=== PATIENT | female | born 1935 | race Caucasian/White ===

== ENCOUNTER 2016-08-16 11:28 | Outpatient (CLI) | payer MEDICARE, OTHER | END 2016-08-16 11:29 | disposition short-term general hospital (02) | DX: M25.552 Pain in left hip (principal); W01.0XXA Fall on same level from slipping, tripping and stumbling without subsequent striking against object, initial encounter; Y92.000 Kitchen of unspecified non-institutional (private) residence as the place of occurrence of the external cause | CPT/HCPCS: A0425; A0427; A0888 ==

== ENCOUNTER 2017-03-13 12:25 | Outpatient (CLI) | payer MEDICARE, OTHER | END 2017-03-13 12:26 | disposition EMS.NT | LOC: EMS 12:25 | PROVIDERS: ATTEND Surgery | DX: R55 Syncope and collapse (principal) ==

== ENCOUNTER 2017-11-29 06:21 | Outpatient (CLI) | payer MEDICARE, OTHER | END 2017-11-29 06:22 | disposition short-term general hospital (02) | LOC: EMS 06:21 | PROVIDERS: ATTEND Surgery | DX: R41.0 Disorientation, unspecified (principal); R41.3 Other amnesia | CPT/HCPCS: A0425; A0429 ==

== ENCOUNTER 2019-01-29 10:37 | Outpatient (CLI) | payer MEDICARE, OTHER | END 2019-01-29 10:38 | disposition short-term general hospital (02) | LOC: EMS 10:37 | PROVIDERS: ATTEND Surgery | DX: R53.1 Weakness (principal); R47.01 Aphasia | CPT/HCPCS: A0425; A0429; A0888 ==

== ENCOUNTER 2019-03-04 18:27 | Outpatient (CLI) | payer MEDICARE, OTHER | END 2019-03-05 18:28 | disposition critical access hospital (66) | LOC: EMS 18:27 | PROVIDERS: ATTEND Surgery | DX: R55 Syncope and collapse (principal) | CPT/HCPCS: A0425; A0429 ==

== ENCOUNTER 2019-03-04 18:45 | Inpatient (IN) | payer MEDICARE, OTHER ==
--- NOTE | 2019-03-04 18:52 | ED Physician Documentation ---
History of Present Illness - Stated complaint Stated Complaint: SYNCOPE - History obtained from History obtained from: Patient, EMS - History of Present Illness Timing: Other (This is an 83-year-old with dementia who presents from a memory care facility. Reportedly she was eating her ice cream sandwich after dinner and then either passed out or . Per paramedics the care staff felt like she did not have a pulse or respirations. That said after just chest compressions she is now back to normal. 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: Hysterectomy HEENT: Cataracts - Present Medications Home Medications: Ambulatory Orders Medication Instructions Recorded Confirmed Aspirin 81 mg PO DAILY 03/04/19 03/04/19 Clopidogrel [Plavix] 75 mg PO DAILY 03/04/19 03/04/19 Latanoprost 1 drops QPM 03/04/19 03/04/19 Lisinopril 5 mg PO BID 03/04/19 03/04/19 QUEtiapine [SEROquel] 25 mg PO QPM 03/04/19 03/04/19 - Allergies Allergies/Adverse Reactions: Allergies Allergy/AdvReac Type Severity Reaction Status Date / Time iodine Allergy Anaphylaxis Verified 03/04/19 19:03 PD ED PE NORMAL - Vitals Vital signs reviewed: Yes - General General: Other (She is alert and oriented to person and place but not time) - HEENT HEENT: PERRL, EOMI - Neck Neck: Supple, no meningeal sign, No bony TTP - Cardiac Cardiac: RRR, No murmur - Respiratory Respiratory: No respiratory distress, Clear bilaterally - Abdomen Abdomen: Non tender - Extremities Extremities: No edema, No calf tenderness / cord - Neuro Neuro: No motor deficit, No sensory deficit Eye Opening: Spontaneous Motor: Obeys Commands Verbal: Confused GCS Score: 14 Results - Vitals Vitals: Vital Signs - 24 hr 03/04/19 18:50 Temperature 36.6 C Heart Rate 75 Respiratory 16 Rate Blood Pressure 160/111 H O2 Saturation 98 Oxygen O2 Source Room air - EKG (time done) 1928 Rate: Rate (enter#) (71) Rhythm: NSR [place]: Normal Intervals: Normal RI QRS: Normal Ischemia: Normal ST segments - Labs Labs: Laboratory Tests 03/04/19 03/04/19 03/04/19 19:35 19:35 19:35 WBC 8.6 RBC 4.16 L Hgb 12.9 Hct 37.4 MCV 89.9 MCH 31.0 MCHC 34.5 RDW 12.3 Plt Count 231 MPV 9.0 Neut # (Auto) 6.3 Lymph # (Auto) 1.2 L Edgar # (Auto) 0.9 Eos # (Auto) 0.1 Baso # (Auto) 0.0 Absolute Nucleated RBC 0.00 Nucleated RBC % 0.0 Sodium 125 L Potassium 3.5 Chloride 88 L Carbon Dioxide 25 Anion Gap 12.0 BUN 62 H Creatinine 2.8 H Estimated GFR (MDRD) 16 L Glucose 113 H Calcium 8.6 Total Bilirubin 0.7 AST 20 ALT 15 Alkaline Phosphatase 52 Troponin I High Sens 8.4 Total Protein 6.4 L Albumin 3.6 Globulin 2.8 Albumin/Globulin Ratio 1.3 Lipase 45 PD MEDICAL DECISION MAKING - ED course ED course: 83-year-old woman presents by ambulance for syncope, potential cardiac but resolved quickly after CPR alone suggesting that she never actually lost pulses. Examination is relatively unremarkable and her EKG is as well. I spoke with the daughter by phone, also looked up records from [facility]. Her baseline creatinine is 1.4. She had a similar episode about a month ago, had a left basilar ganglia stroke. She also had a creatinine in the mid twos. Also had UTI. This resolved with IV fluids. Looks like she got very prerenal again and probably passed out due to same. Spoke with Dr. Nuñez for admission at 8:21 PM. DAUGHTER WANTS HER NOT TO BE ON BACTRIM AGAIN DUE TO SIDE EFFECTS Radiologist was concerned about a potential pneumothorax on x-ray, this was followed by CT without pneumothorax. Departure - Departure Disposition: 66 [facility] DC/Xfer Clinical Impression: CAYDEN (acute kidney injury), Pneumothorax on left Chest wall injury Qualifiers: Encounter type: initial encounter Qualified Code(s): S29.9XXA - Unspecified injury of thorax, initial encounter Syncope Qualifiers: Syncope type: unspecified Qualified Code(s): R55 - Syncope and collapse Condition: Good Record reviewed to determine appropriate education?: Yes Discharge Date/Time: 03/04/19 21:15
[2019-03-04 19:40] LABS: BASOPHILS % (AUTO) 0.5 %; EOSINOPHILS # (AUTO) 0.1 10^3/uL (0.0-0.7); EOSINOPHILS % (AUTO) 0.9 %; HGB - HEMOGLOBIN 12.9 g/dL (12.0-16.0); LYMPHOCYTES # (AUTO) 1.2 10^3/uL (1.5-3.5); LYMPHOCYTES % (AUTO) 13.4 %; MEAN CORPUSCULAR HGB CONC 34.5 g/dL (32.0-36.0); MEAN CORPUSCULAR VOLUME 89.9 fL (81.0-99.0); MONOCYTES # (AUTO) 0.9 10^3/uL (0.0-1.0); NEUTROPHILS # (AUTO) 6.3 10^3/uL (1.5-6.6); NEUTROPHILS % (AUTO) 73.6 %; PLT - PLATELET COUNT 231 10^3/uL (130-450); RED BLOOD COUNT 4.16 10^6/uL (4.20-5.40); RED CELL DISTRIBUTION WIDTH 12.3 % (12.0-15.0); WHITE BLOOD COUNT 8.6 x10^3/uL (4.8-10.8)
[2019-03-04 19:54] LABS: ALBUMIN 3.6 g/dL (3.2-5.5); ALBUMIN/GLOBULIN RATIO 1.3 (1.0-2.2); BILIRUBIN,TOTAL 0.7 mg/dL (0.2-1.0); CALCIUM 8.6 mg/dL (8.5-10.3); CREATININE 2.8 mg/dL (0.4-1.0); TOTAL PROTEIN 6.4 g/dL (6.7-8.2)
[2019-03-04] MEDS ORDERED: SODIUM CHLORIDE 0.9% 1,000 ML IV ONE ×2 (20:08)
--- NOTE | 2019-03-04 20:09 | XRAY Report ---
Reason: post CPr Procedure Date: 03/04/2019 Accession Number: [id number] / [id number] Procedure: XR - Chest 2 View X-Ray CPT Code: 14392 FULL RESULT: EXAM: CHEST RADIOGRAPHY EXAM DATE: 03/04/2019 07:39 PM. CLINICAL HISTORY: Post CPr. COMPARISON: None. TECHNIQUE: 2 views. FINDINGS: Lungs/Pleura: Small bilateral pleural effusions. No focal opacity. Left inferolateral lucency may reflect pneumothorax or artifactual/skin fold. A repeat radiograph to be performed in 2 hours for interval assessment. Mediastinum: Heart and mediastinal contours are unremarkable. Other: None. IMPRESSION: Small bilateral pleural effusions. Left inferolateral lucency may reflect pneumothorax or artifactual/skin fold. A repeat radiograph to be performed in 2 hours for interval assessment. WILTON The call report notification system was initiated by Dr. Jenny Carlson at 08:07 PM on 03/04/2019. ADDENDUM: 03/04/19 20:11 The above call report findings were discussed with Hernan Whitaker by Dr. Jenny Carlson at 08:11 PM on 03/04/2019.
[2019-03-04] MEDS ORDERED: ACETAMINOPHEN 325 MG TABLET PO PRN (20:18)
[2019-03-04] MEDS ORDERED: ONDANSETRON 4 MG/2 ML VIAL IVP PRN (20:18)
[2019-03-04] MEDS ORDERED: SODIUM CHLORIDE FLUSH 0.9% 10 ML SYRINGE IVP PRN (20:18)
--- NOTE | 2019-03-04 21:16 | HISTORY & PHYSICAL EXAMINATION ---
Chief Complaint - Chief Complaint Chief Complaint: Syncope History of Present Illness - Admitted From Admitted From:: [facility] - History Obtained From Records Reviewed: Yes History obtained from: Patient, ER Physician, Outside records Exam Limitations: Patient has dementia - History of Present Illness HPI Comment/Other: This is a 83 year old female with a past medical history significant for hypertension, CKD, dementia, and CVA who presents from a Memory Care Facility after she had a syncopal episode. She was reportedly sitting outside eating an ice cream sandwich when she passed out. There was concern that she lost a pulse and so CPR was initiated. The patient then regained consciousness and was back to her usual self. She denies having chest pain at this time. She denies having chest pain, palpitations, dizziness, lightheadedness prior to her passing out. She does recall the event and cannot recall any inciting factors. She denies prior history of syncope. She has been in her usual state of health. Reports drinking plenty of water these past few days. She was hospitalized last month at [facility] where she was treated for a UTI and also a new left basal ganglia CVA. She has no residual deficits. In the ER, she was found to be normotensive with a normal heart rate. Labs were significant for a sodium of 125, BUN of 62, and creatinine of 2.8. An x-ray of the chest was concerning for a possible small left inferolateral pneumothorax. A CT of the chest has been ordered and is pending. Her EKG revealed sinus rhythm with an intraventricular conduction delay. No ischemic changes. Troponin is negative. Medicine was consulted for admission given these findings. I did speak with the patient regarding code status and she would like to be a full code. 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 Living arrangement: Assisted living Living Situation: Alone Social History Notes: She currently resides at a Memory Care Facility. She has three daughters who live in [facility]. She does not smoke. She does drink a glass of wine daily. - Substance History Use: Uses substance without health or social issues: Alcohol - POLST Patient has POLST: No Meds/Allgy - Home Medications Home Medications: Ambulatory Orders Medication Instructions Recorded Confirmed Aspirin 81 mg PO DAILY 03/04/19 03/04/19 Clopidogrel [Plavix] 75 mg PO DAILY 03/04/19 03/04/19 Latanoprost 1 drops QPM 03/04/19 03/04/19 Lisinopril 5 mg PO BID 03/04/19 03/04/19 QUEtiapine [SEROquel] 25 mg PO QPM 03/04/19 03/04/19 - Allergies Allergies/Adverse Reactions: Allergies Allergy/AdvReac Type Severity Reaction Status Date / Time iodine Allergy Anaphylaxis Verified 03/04/19 19:03 Review of Systems - Constitutional Constitutional: denies: Fatigue, Fever, Chills, Malaise, Weakness, Poor appetite - Cardiovascular Cariovascular: reports: Syncope. denies: Irregular heart rate, Palpitations, Chest pain, Edema, Lightheadedness, Exertional dyspnea, Decr. exercise tolerance - Respiratory Respiratory: denies: Cough, SOB at rest, SOB with exertion - Gastrointestinal Gastrointestinal: denies: Abdominal pain, Constipation, Diarrhea, Nausea, Vomiting - Genitourinary Genitourinary: denies: Dysuria, Frequency, Urgency - Musculoskeletal Musculoskeletal: denies: Muscle aches, Muscle weakness - Integumentary Integumentary: denies: Rash - Neurological Neurological: denies: General weakness, Focal weakness, Dizziness, Numbness - All Other Systems All Other Systems: reports: Reviewed and negative Prior Level of Functionality: She has dementia and resides at a Memory Care Facility. Ambulates with a walker at baseline for stability. Exam - Vital Signs Reviewed Vital Signs: Yes Vital Signs: Vital Signs x48h Temp Pulse Resp BP Pulse Ox 03/04/19 20:55 82 16 123/82 H 98 03/04/19 20:20 74 17 113/63 96 03/04/19 18:50 36.6 C 75 16 160/111 H 98 - Physical Exam General Appearance: positive: No acute distress, Alert. negative: Lethargic Eyes Bilateral: positive: Normal inspection, Conjunctivae nml, No scleral icterus ENT: positive: ENT inspection nml, Dry mucous membranes. negative: No signs of dehydration Neck: positive: Nml inspection Respiratory: positive: Chest non-tender, No respiratory distress. negative: Wheezes, Rales, Rhonchi Cardiovascular: positive: Regular rate & rhythm. negative: Tachycardia, Bradycardia, Systolic murmur, Diastolic murmur Abdomen: positive: Non-tender, No distention. negative: Tenderness, Guarding, Rebound Skin: positive: No rash, Warm, Dry Extremities: positive: Non-tender, Full ROM, No pedal edema Neurologic/Psychiatric: positive: Motor nml, Sensation nml, Disoriented to time. negative: Disoriented to person, Disoriented to place, Weakness, Sensory loss, Facial droop, Slurred/abnml speech Conclusion/Plan - Problem List (1) Syncope Conclusion/Plan: Etiology is unclear at this time. No obvious cause based off of her history. Questionable history of her lose a pulse and hence CPR was initiated but she returned to normal quickly. I wonder if she may have possibly been bradycardic and that is what cause her to have a syncopal episode as well as causing the staff to believe she did not have a pulse. EKG shows sinus rhythm and is without ischemic changes although QTc is prolonged at 472. Initial troponin is negative. Will check orthostatics and monitor her on telemetry. Trend troponin. Will attempt to obtain records from [facility] as she had an echocardiogram performed last month. If we can obtain these records then we will not obtain another echocardiogram as it is unlikely to be changed in a one month period. Qualifiers: Syncope type: unspecified Qualified Code(s): R55 - Syncope and collapse (2) CAYDEN (acute kidney injury) Conclusion/Plan: Suspect this is likely pre-renal injury as she appears dehydrated. Creatinine elevated at 2.8 and her baseline is approximately 1.5. Continue IV hydration. Hold Lisinopril. Monitor renal function and urine output. (3) Hyponatremia Conclusion/Plan: Suspect this is likely hypovolemic hyponatremia as she appears dehydrated on exam. Sodium is 125 on admission. Received one litre of saline in the ER. Will start NS at 100 mL/hr. Recheck BMP at midnight. Goal sodium is 133 by tomorrow evening. Check urine sodium and osm. (4) Pneumothorax on left Conclusion/Plan: Evident on chest x-ray but may be artifact. She is not dyspneic or hypoxic. Will follow up CT chest. If pneumothroax is confirmed, will repeat x-ray in the AM. (5) Dementia Conclusion/Plan: Prior imaging at [facility] was suggestive of vascular dementia. She was started on Seroquel last month due to . Will continue her home Seroquel. (6) Hypertension Conclusion/Plan: She is currently normotensive. Will hold her home Lisinopril due to acute kidney injury. (7) History of CVA (cerebrovascular accident) without residual deficits Conclusion/Plan: History of left basal ganglia infarct diagnosed last month. No residual deficits. Will continue Aspirin and Plavix. - Lab Results Lab results reviewed: Yes Fish Bones: 03/04/19 19:35 03/04/19 19:35 - Diagnostic Imaging Results Diagnostic Imaging Results: positive: Final report reviewed - EKG Results EKG Interpreted Independently: Yes EKG Comparison: No prior EKG EKG Findings: Sinus rhythm with a nonspecific intraventricular conduction delay. No ischemic changes. QTc is prolonged at 472. Core Measures - Anticipated LOS I expect patient to be DC'd or transferred within 96 hours.: Yes - Issues Hospital Issues and Management Plan: Syncope, Acute Kidney Injury, Hyponatremia, Pneumothorax. Will require IV hydration and further workup. - DVT/VTE - Prophylaxis VTE/DVT Device ordered at admit?: Yes VTE/DVT Prophylaxis med ordered at admit?: Yes
--- NOTE | 2019-03-04 21:22 | CT Report ---
Reason: poss ptx p CPR Procedure Date: 03/04/2019 Accession Number: [id number] / [id number] Procedure: CT - CHEST WO CPT Code: FULL RESULT: EXAM: CT CHEST EXAM DATE: 03/04/2019 08:43 PM. CLINICAL HISTORY: Post CPR, possible pneumothorax. COMPARISONS: CHEST 2 VIEW 03/04/2019 7:03 PM. TECHNIQUE: Routine helical CT imaging was performed through the chest. IV contrast: None. Reconstructions: Coronal and sagittal. In accordance with CT protocol optimization, one or more of the following dose reduction techniques were utilized for this exam: automated exposure control, adjustment of mA and/or KV based on patient size, or use of iterative reconstructive technique. FINDINGS: Lungs/Pleura: Small bilateral pleural effusions. No acute airspace disease. No suspicious lung nodules. No evidence of pneumothorax. Mediastinum: Normal heart size. There is a small hiatal hernia. No lymphadenopathy. Bones: Unremarkable. Visualized Abdomen: Bilateral renal cysts. The included upper abdomen is otherwise unremarkable. Other: None. IMPRESSION: 1. Small bilateral pleural effusions. 2. No evidence of pneumothorax or acute airspace disease. RADIA
[2019-03-04 21:34] LABS: BILIRUBIN,URINE NEGATIVE (NEGATIVE); GLUCOSE, URINE (UA) NEGATIVE (NEGATIVE); KETONES,URINE (UA) NEGATIVE (NEGATIVE); LEUKOCYTE ESTERASE, URINE NEGATIVE (NEGATIVE); NITRITE,URINE NEGATIVE (NEGATIVE); OCCULT BLOOD,URINE NEGATIVE (NEGATIVE); PROTEIN,URINE NEGATIVE (NEGATIVE); UROBILINOGEN,URINE 0.2 (NORMAL) E.U./dL (NORMAL)
[2019-03-04 21:35] LABS: CLARITY,URINE CLEAR (CLEAR)
[2019-03-04] MEDS: HEPARIN 5,000 UNIT/ML VIAL SUBQ SCH (21:44)
[2019-03-04] MEDS: SODIUM CHLORIDE 0.9% 1,000 ML IV SCH (22:11)
[2019-03-04] MEDS: SODIUM CHLORIDE FLUSH 0.9% 10 ML SYRINGE IVP SCH (23:49)
[2019-03-05 00:30] LABS: CALCIUM 8.1 mg/dL (8.5-10.3); CREATININE 2.4 mg/dL (0.4-1.0)
[2019-03-05 05:48] LABS: BASOPHILS % (AUTO) 0.4 %; EOSINOPHILS # (AUTO) 0.1 10^3/uL (0.0-0.7); EOSINOPHILS % (AUTO) 1.1 %; HGB - HEMOGLOBIN 11.5 g/dL (12.0-16.0); LYMPHOCYTES # (AUTO) 1.2 10^3/uL (1.5-3.5); LYMPHOCYTES % (AUTO) 14.7 %; MEAN CORPUSCULAR HGB CONC 33.9 g/dL (32.0-36.0); MEAN CORPUSCULAR VOLUME 91.4 fL (81.0-99.0); MEAN PLATELET VOLUME 9.8 fL (7.9-10.8); MONOCYTES # (AUTO) 0.7 10^3/uL (0.0-1.0); MONOCYTES % (AUTO) 8.5 %; NEUTROPHILS % (AUTO) 73.6 %; PLT - PLATELET COUNT 239 10^3/uL (130-450); RED BLOOD COUNT 3.71 10^6/uL (4.20-5.40); WHITE BLOOD COUNT 8.1 x10^3/uL (4.8-10.8)
[2019-03-05 06:00] LABS: CALCIUM 8.4 mg/dL (8.5-10.3); CREATININE 2.2 mg/dL (0.4-1.0); PHOSPHORUS 2.8 mg/dL (2.5-4.6)
[2019-03-05] MEDS: SODIUM CHLORIDE 0.9% 1,000 ML IV SCH ×2 (06:27→10:40)
[2019-03-05] MEDS ORDERED: ASPIRIN EC 81 MG TABLET PO SCH (09:00)
[2019-03-05] MEDS ORDERED: CLOPIDOGREL 75 MG TABLET PO SCH (09:00)
[2019-03-05] MEDS ORDERED: POLYETHYLENE GLYCOL 3350 17 GM PACKET PO SCH (09:00)
[2019-03-05] MEDS: SODIUM CHLORIDE FLUSH 0.9% 10 ML SYRINGE IVP SCH (09:06)
[2019-03-05] MEDS: HEPARIN 5,000 UNIT/ML VIAL SUBQ SCH (09:07)
[2019-03-05] MEDS ORDERED: LISINOPRIL 5 MG TABLET PO SCH (12:00)
[2019-03-05 15:23] LABS: CALCIUM 8.4 mg/dL (8.5-10.3); CREATININE 1.8 mg/dL (0.4-1.0)
[2019-03-05 15:46] VITALS: BP 125/65
--- NOTE | 2019-03-05 16:25 | Discharge Plan ---
"Discharge Plan for SNF / [facility] - Discharge Plan And Transition Orders Problem Reviewed?: Yes Disposition: 03 SNF DC/Xfer Condition: Poor Allergies and Adverse Reactions: Allergies Allergy/AdvReac Type Severity Reaction Status Date / Time iodine Allergy Anaphylaxis Verified 03/04/19 19:03 sulfamethoxazole Allergy Unknown Verified 03/04/19 22:09 [From Bactrim] trimethoprim [From Bactrim] Allergy Unknown Verified 03/04/19 22:09 Health Concerns: dehydration, orthostatic hypotension, hyponatremia, syncope Plan of Treatment: pt present severe dehydration at the admission, pt has hx of dementia and stroke, it is high risk for dehydration, please keep pt enough hydration. pt also present orthostatic hypotension, please let pt stand slowly and walk slowly, and prevention of pt's fall. pt also had hyponatremia at the admission. pt's medication HCTZ is hold now, which will help pt prevention of hyponatremia. It is likely pt's combination of dehydration, orthostatic hypotension, hyponatremia contribute to pt's syncope. Care Goals: stabilization and improvement of pt's medical condition Assessment: assessment as the above. - SNF / [facility] Transition Orders Admit to (Facility): Home Place Under the care of (Name): Anthony Craig Discharge Diagnosis: CAYDEN, hyponatremia, syncope, orthostatic hypotension, dementia, HTN, hx of CVA Medicare Certification Statement: I do not certify that Post Hospital [facility] care is medically necessary on a continuing basis for any of the conditions for which she/he is receiving care during hospitalization. Notify PCP of admission and forward orders to primary provider for signature. Weight on admission and: Daily Call PCP immediately if weight increases by: 2 kg Other Notification Orders: Call PCP immediately if patient develops dyspnea, chest pain/tightness or edema. House Bowel Program: Yes Additional Bowel Program Orders: If no BM after 2 days, nurse may give M.O.M. 30ml PO PRN and/or ducolax Supp 1 [place] and/or STEVEN 250mg P.O., and/or senna 1-2 tabs PO. On day 3 nurse may give repeat above order until residents constipation is resolved. Annual Influenza Vaccine (between Jan 31 and August 30): Yes Two-step PPD per [employer] [id number] or approved exception documents: Yes Treatments & Other Orders: pt may followup PCP in one week, have BMP in one week to monitor creatinine and sodium level. Medication Orders: PLEASE REFER TO THE DISCHARGE MEDICATION LIST. Insulin Orders?: No - Diet Type: Geriatric Texture: Regular Liquids: Thin May have monthly special meal: Yes - Therapies | Activity Activity: Activity as Tolerated Additional Instructions: pt may followup PCP in one week, have BMP in one week to monitor creatinine and sodium level."
--- NOTE | 2019-03-05 16:49 | DISCHARGE SUMMARY ---
Discharge Summary Admit Date: 03/04/19 Discharge Date: 03/05/19 Discharging Provider: WINTERS Primary Care Provider: Anthony Chin Condition at Discharge: Poor Discharge Disposition: 01 Home, Self Care Discharge Facility Name: [facility] - DIAGNOSES Admission Diagnoses: (1) Syncope (2) CAYDEN (acute kidney injury) (3) Hyponatremia (4) Pneumothorax on left (5) Dementia (6) Hypertension (7) History of CVA (cerebrovascular accident) without residual deficits Discharge Diagnoses with Status of Each Condition: (1) Syncope Questionable history of her lose a pulse and hence CPR was initiated but she returned to normal quickly. Per Janae Preston, pt's josephineer, report, pt loss her consciousness because staff in [facility] too quickly moved pt's position from sitting to standing. Per pt's daughter, when ER provider called her, ER provider Dr. Whitaker did not believe pt had no Pulse. hospital industrial controls technician was sick, until next week Friday she come back to do ECHO. Pt had ECHO in [facility] around one month ago. ECHO from Medical record from [facility] did not specify pt has deficiency in her ECHO study.EKG shows sinus rhythm and is without ischemic changes although QTc is prolonged at 472. Trend troponin was negative. orthostatics hypotension is positive in the orthostatics vital check. It is likely combination of dehydration, orthostatic hypotension, hyponatremia contribute to pt's syncope. (2) CADYEN (acute kidney injury) resolved. pt's creatinine is 1.8 now. pt's creatinine is around 1.5-2.4 from medical record of [facility]. discussed with pt's daughter for keeping pt hydration in [facility]. (3) Hyponatremia Na is 131, as pt's baseline. hold pt's HCTZ which its side effect can lead to pt's hyponatremia. pt's BP is stable when HCTZ was hold in hospital (4) Pneumothorax on left CT confirm pt did not have pneumothorax. pt denies chest pain or shortness of breath. (5) Dementia stable (6) Hypertension stable (7) History of CVA (cerebrovascular accident) without residual deficits stable, continue home regimen (8)orthostatic hypotension pt has positive orthostatic hypotension. it is likely caused by pt's vasovagal plus pt hx of dementia, and hx of CVA. discussed with pt's daughter how to prevention of orthostatic hypotension to cause syncope. pt's daughter is happy to pt be d/c to [facility] today. pt's daughter did think pt's mental status return to pt's baseline. Although pt is still some confused as her baseline by pt is very happy to answer all questions - [facility] History of Present Illness: refer from Dr. Belle's HPI on 03/04/19 This is a 83 year old female with a past medical history significant for hypertension, CKD, dementia, and CVA who presents from a [facility] after she had a syncopal episode. She was reportedly sitting outside eating an ice cream sandwich when she passed out. There was concern that she lost a pulse and so CPR was initiated. The patient then regained consciousness and was back to her usual self. She denies having chest pain at this time. She denies having chest pain, palpitations, dizziness, lightheadedness prior to her passing out. She does recall the event and cannot recall any inciting factors. She denies prior history of syncope. She has been in her usual state of health. Reports drinking plenty of water these past few days. She was hospitalized last month at [facility] where she was treated for a UTI and also a new left basal ganglia CVA. She has no residual deficits. In the ER, she was found to be normotensive with a normal heart rate. Labs were significant for a sodium of 125, BUN of 62, and creatinine of 2.8. An x-ray of the chest was concerning for a possible small left inferolateral pneumothorax. A CT of the chest has been ordered and is pending. Her EKG revealed sinus rhythm with an intraventricular conduction delay. No ischemic changes. Troponin is negative. Medicine was consulted for admission given these findings. I did speak with the patient regarding code status and she would like to be a full code. - HOSPITAL COURSE Hospital Course: pt was admitted for syncope. pt was found to severe dehydration and presented CAYDEN, and hyponatremia. pt was hydration with IVF of NS. After hydration, pt's creatinine is 1.8 from 2.8 in the admission. Na is 131 from admission 124. hospital industrial controls technician was sick, until next week Friday she come back to do ECHO. Pt had ECHO in [facility] around one month ago. ECHO from Medical record from [facility] did not specify pt has deficiency in her ECHO study.EKG shows sinus rhythm and is without ischemic changes although QTc is prolonged at 472. Trend troponin was negative. orthostatics hypotension is positive in the orthostatics vital check. It is likely combination of dehydration, orthostatic hypotension, hyponatremia contribute to pt's syncope. The detail hospital course is as the below: (1) Syncope Questionable history of her lose a pulse and hence CPR was initiated but she returned to normal quickly. Per Janae Preston, pt's josephineer, report, pt loss her consciousness because staff in [facility] too quickly moved pt's position from sitting to standing. Per pt's daughter, when ER provider called her, ER provider Dr. Whitaker did not believe pt had no Pulse. hospital industrial controls technician was sick, until next week Friday she come back to do ECHO. Pt had ECHO in [facility] around one month ago. ECHO from Medical record from [facility] did not s pecify pt has deficiency in her ECHO study.EKG shows sinus rhythm and is without ischemic changes although QTc is prolonged at 472. Trend troponin was negative. orthostatics hypotension is positive in the orthostatics vital check. It is likely combination of dehydration, orthostatic hypotension, hyponatremia contribute to pt's syncope. (2) CAYDEN (acute kidney injury) resolved. pt's creatinine is 1.8 now. pt's creatinine is around 1.5-2.4 from medical record of [facility]. discussed with pt's daughter for keeping pt hydration in [facility]. (3) Hyponatremia Na is 131, as pt's baseline. hold pt's HCTZ which its side effect can lead to pt's hyponatremia. pt's BP is stable when HCTZ was hold in hospital (4) Pneumothorax on left CT confirm pt did not have pneumothorax. pt denies chest pain or shortness of breath. (5) Dementia stable (6) Hypertension stable (7) History of CVA (cerebrovascular accident) without residual deficits stable, continue home regimen (8)orthostatic hypotension pt has positive orthostatic hypotension. it is likely caused by pt's vasovagal plus pt hx of dementia, and hx of CVA. discussed with pt's daughter how to prevention of orthostatic hypotension to cause syncope pt's daughter is happy to pt be d/c to [facility] today. pt's daughter did think pt's mental status return to pt's baseline. Although pt is still some confused as her baseline by pt is very happy to answer all questions - ALLERGIES Allergies/Adverse Reactions: Allergies Allergy/AdvReac Type Severity Reaction Status Date / Time iodine Allergy Anaphylaxis Verified 03/04/19 19:03 sulfamethoxazole Allergy Unknown Verified 03/04/19 22:09 [From Bactrim] trimethoprim [From Bactrim] Allergy Unknown Verified 03/04/19 22:09 - MEDICATIONS Home Medications: Ambulatory Orders Medication Instructions Recorded Confirmed Aspirin 81 mg PO DAILY 03/04/19 03/04/19 Clopidogrel [Plavix] 75 mg PO DAILY 03/04/19 03/04/19 Latanoprost 1 drops EACHEYE QPM 03/04/19 03/05/19 Lisinopril 10 mg PO BID 03/04/19 03/05/19 QUEtiapine [SEROquel] 25 mg PO QPM 03/04/19 03/04/19 - PHYSICAL EXAM AT DISCHARGE General Appearance: positive: No acute distress, Alert. negative: Lethargic Eyes Bilateral: positive: Normal inspection, PERRL, No lid inflammation ENT: positive: ENT inspection nml, Pharynx nml, No signs of dehydration. negative: Purulent nasal drainage, Pharyngeal erythema, Oral lesions Neck: positive: Nml inspection, Thyroid nml, No JVD, Trachea midline. negative: Thyromegaly, Lymphadenopathy (R), Lymphadenopathy (L), Stiff neck, Swelling/bruising, Tracheal deviation Respiratory: positive: Chest non-tender, No respiratory distress, Breath sounds nml. negative: Wheezes, Rales, Rhonchi Cardiovascular: positive: Regular rate & rhythm, No murmur, No gallop. negative: Irregularly irregular, Extrasystoles, Tachycardia, Bradycardia, JVD present, Systolic murmur, Diastolic murmur Peripheral Pulses: positive: 2+ Abdomen: positive: Non-tender, No organomegaly, Nml bowel sounds, No distention. negative: Tenderness, Guarding, Rebound Back: positive: Nml inspection. negative: CVA tenderness (R), CVA tenderness (L) Skin: positive: Color nml, No rash, Warm, Dry. negative: Cyanosis, Diaphoresis, Pallor Extremities: positive: Non-tender, Nml appearance. negative: Calf tenderness, Nate's sign/cords Neurologic/Psychiatric: positive: Sensation nml, Mood/affect nml. negative: Weakness, Sensory loss, Facial droop, Slurred/abnml speech - LABS Result Diagrams: 03/05/19 05:05 03/05/19 15:07 - FOLLOW UP Follow Up: pt present severe dehydration at the admission, pt has hx of dementia and stroke, it is high risk for dehydration, please keep pt enough hydration. pt also present orthostatic hypotension, please let pt stand slowly and walk slowly, and prevention of pt's fall. pt also had hyponatremia at the admission. pt's medication HCTZ is hold now, which will help pt prevention of hyponatremia. It is likely pt's combination of dehydration, orthostatic hypotension, hyponatremia contribute to pt's syncope. pt may followup PCP in one week, have BMP in one week to monitor creatinine and sodium level. - TIME SPENT Time Spent in Discharge (Minutes): 60
[2019-03-05] MEDS ORDERED: LATANOPROST 0.005% OPHTH DROPS EACHEYE SCH (21:00)
[2019-03-05] MEDS ORDERED: QUEtiapine 25 MG TABLET PO SCH ×2 (21:00)
== END 2019-03-05 17:46 | disposition home or self-care (01) | DRG 312 ==
LOC: EDUNIT# → ED 18:45 → MS3 20:18
PROVIDERS: ADMIT Internal Medicine; ATTEND Nurse Practitioner Gerontology
DX: I95.1 Orthostatic hypotension (principal); R55 Syncope and collapse; I10 Essential (primary) hypertension; N17.9 Acute kidney failure, unspecified; E87.1 Hypo-osmolality and hyponatremia; F05 Delirium due to known physiological condition; E86.0 Dehydration; E86.1 Hypovolemia; T50.2X5A Adverse effect of carbonic-anhydrase inhibitors, benzothiadiazides and other diuretics, initial encounter; Y92.099 Unspecified place in other non-institutional residence as the place of occurrence of the external cause; F03.90 Unspecified dementia, unspecified severity, without behavioral disturbance, psychotic disturbance, mood disturbance, and anxiety; I12.9 Hypertensive chronic kidney disease with stage 1 through stage 4 chronic kidney disease, or unspecified chronic kidney disease; N18.9 Chronic kidney disease, unspecified; Z86.73 Personal history of transient ischemic attack (TIA), and cerebral infarction without residual deficits; Z87.440 Personal history of urinary (tract) infections; Z79.82 Long term (current) use of aspirin; Z79.02 Long term (current) use of antithrombotics/antiplatelets; Z79.899 Other long term (current) drug therapy
CPT/HCPCS: 36415; 71046; 71250; 80048; 80053; 81003; 83690; 83735; 83935; 84100; 84300; 84484; 85025; 93005; 99284; 99285; A9270; 81001; 87086

== ENCOUNTER 2019-03-05 17:48 | Outpatient (CLI) | payer MEDICARE, OTHER | END 2019-03-05 17:49 | disposition home or self-care (01) | LOC: EMS 17:48 | PROVIDERS: ATTEND Surgery | DX: R55 Syncope and collapse (principal); F03.90 Unspecified dementia, unspecified severity, without behavioral disturbance, psychotic disturbance, mood disturbance, and anxiety | CPT/HCPCS: A0425; A0428 ==

== ENCOUNTER 2019-11-25 08:00 | Outpatient (CLI) | payer MEDICARE, OTHER ==
[2019-11-25 11:51] LABS: BASOPHILS # (AUTO) 0.1 10^3/uL (0.0-0.1); BASOPHILS % (AUTO) 1.1 %; EOSINOPHILS # (AUTO) 0.1 10^3/uL (0.0-0.7); EOSINOPHILS % (AUTO) 2.5 %; LYMPHOCYTES # (AUTO) 1.1 10^3/uL (1.5-3.5); MEAN CORPUSCULAR HEMOGLOBIN 30.4 pg (27.0-31.0); MEAN CORPUSCULAR HGB CONC 32.6 g/dL (32.0-36.0); MEAN CORPUSCULAR VOLUME 93.2 fL (81.0-99.0); MEAN PLATELET VOLUME 10.6 fL (7.9-10.8); MONOCYTES # (AUTO) 0.7 10^3/uL (0.0-1.0); NEUTROPHILS # (AUTO) 3.6 10^3/uL (1.5-6.6); NEUTROPHILS % (AUTO) 63.9 %; PLT - PLATELET COUNT 248 10^3/uL (130-450); RED BLOOD COUNT 3.95 10^6/uL (4.20-5.40); RED CELL DISTRIBUTION WIDTH 13.7 % (12.0-15.0); WHITE BLOOD COUNT 5.6 x10^3/uL (4.8-10.8)
[2019-11-25 12:29] LABS: ALBUMIN 3.4 g/dL (3.2-5.5); ALBUMIN/GLOBULIN RATIO 1.3 (1.0-2.2); ALKALINE PHOSPHATASE 46 IU/L (42-121); ALT ALANINE AMINOTRANSFERASE 17 IU/L (10-60); AST ASPARTATE AMINOTRANSFERASE 17 IU/L (10-42); BILIRUBIN,TOTAL 0.7 mg/dL (0.2-1.0); BUN - BLOOD UREA NITROGEN 26 mg/dL (6-20); CALCIUM 8.7 mg/dL (8.5-10.3); CARBON DIOXIDE - CO2 26 mmol/L (21-32); CHLORIDE 99 mmol/L (101-111); CHOL/HDL RATIO 3.6 (<4.4); CHOLESTEROL 205 mg/dL; CREATININE 1.6 mg/dL (0.4-1.0); GLUCOSE 84 mg/dL (70-100); HDL CHOLESTEROL 57 mg/dL; LDL CHOLESTEROL,CALCULATED 131 mg/dL; LDL/HDL RATIO 2.3 (<4.4); SODIUM 132 mmol/L (135-145); TOTAL PROTEIN 6.1 g/dL (6.7-8.2); VLDL CHOLESTEROL 17 mg/dL
== END 2019-11-25 23:59 | disposition home or self-care (01) ==
LOC: LAB.WCP 08:00
PROVIDERS: ATTEND Family Medicine
DX: I10 Essential (primary) hypertension (principal)
CPT/HCPCS: 36415; 80053; 80061; 83721; 84443; 85025

== ENCOUNTER 2019-11-25 10:23 | Outpatient (CLI) | payer MEDICARE, OTHER ==
--- NOTE | 2019-11-25 11:35 | XRAY Report ---
PROCEDURE: Knee 3 View RT INDICATIONS: PAIN IN KNEE JOINT RIGHT TECHNIQUE: 3 views of the right knee(s) were acquired. COMPARISON: None. FINDINGS: Bones: No definite fractures or dislocations. Presumably artifactual lucency traverses the distal fe mur on the lateral view. No suspicious bony lesions. Mild tricompartmental periarticular osteophyte formation. Soft tissues: No joint effusion. No suspicious soft tissue calcifications. IMPRESSION: 1. Presumed artifactual lucency overlying the distal femur on the lateral view. No definite acute fra cture. No osseous lesion. If symptoms and/or clinical suspicion for pathology continue, further asses sment with repeat plain films, or advanced imaging (e.g., CT, MRI, or bone scan) is recommended for f urther assessment. 2. Osteoarthritis. Reviewed by: Kaitlin Cooper MD on 11/25/2019 11:34 AM PDT Approved by: Kaitlin Cooper MD on 11/25/2019 11:34 AM PDT Station ID: [id number]
== END 2019-11-25 10:24 | disposition home or self-care (01) ==
LOC: DI 10:23
PROVIDERS: ATTEND Family Medicine
DX: M17.11 Unilateral primary osteoarthritis, right knee (principal); I10 Essential (primary) hypertension
CPT/HCPCS: 36415; 80053; 80061; 83721; 84443; 85025

== ENCOUNTER 2022-03-15 09:27 | Outpatient (CLI) | payer MEDICARE, OTHER | END 2022-03-15 09:28 | disposition critical access hospital (66) | LOC: EMS 09:27 | DX: R05.9 Cough, unspecified (principal); R53.1 Weakness; R50.9 Fever, unspecified; I10 Essential (primary) hypertension | CPT/HCPCS: A0425; A0429 ==

== ENCOUNTER 2022-03-15 09:45 | Emergency (ER) | payer MEDICARE, OTHER ==
--- OUTSIDE RECORDS SUMMARY | 2022-03-15 10:02 | EXTERNAL MEDICAL SUMMARY RPT | Continuity of Care Document ---
:1935 Author Organization [facility] Address [address] [id number] Phone Allergies and Intolerances date description facility type (no date) No Known Drug Allergies [facility] (unkn own) Encounters No information. Functional Status No information. Immunizations No information. Medications No information. Problems No information. Procedures date description facility [id number] [facility] [id number] [facility] Results/Labs test date author facility value unit interpret ation Result panel 1 (unknown) (no (unknown) (unknown) (no value) (units (unk nown) date) unknown) (unknown) (no (unknown) (unknown) (no value) (units (unk nown) date) unknown) (unknown) (no (unknown) (unknown) [address] [place] [address] (units (unknown) date) unknown) (unknown) (no (unknown) (unknown) LORRAINE Gonsalez (units ( unknown) date) [id number] unknown) (unknown) (no (unknown) (unknown) CT Scan Report (units (unknown) date) unknown) (unknown) (no (unknown) (unknown) [facility] (units (unknown) date) unknown) (unknown) (no (unknown) (unknown) Signed (units (unkno wn) date) unknown) (unknown) (no (unknown) (unknown) (no value) (units (unk nown) date) unknown) (unknown) (no (unknown) (unknown) 12/18/21 (units (unkno wn) date) unknown) (unknown) (no (unknown) (unknown) ABDOMEN: (units (unkno wn) date) unknown) (unknown) (no (unknown) (unknown) Abdominal Nodes: (units (unknown) date) No retroperitoneal unknown) or mesenteric adenopathy by size criteria. (unknown) (no (unknown) (unknown) Adrenal Glands: (units (unknown) date) Unremarkable. unknown) (unknown) (no (unknown) (unknown) After the (units (unkn own) date) administration of unknown) oral and IV contrast, axial sections were acquired (unknown) (no (unknown) (unknown) Approved by: (units (u nknown) date) Archana Yang M.D. unknown) on 12/18/2021 at 15:07 (unknown) (no (unknown) (unknown) Biliary ducts: (units (unknown) date) Unremarkable. unknown) (unknown) (no (unknown) (unknown) Bladder: (units (unkno wn) date) Unremarkable. unknown) (unknown) (no (unknown) (unknown) Bones: There is a (units (unknown) date) chronic appearing unknown) posterior left 12th rib fracture. (unknown) (no (unknown) (unknown) COMPARISON: None. (units (unknown) date) unknown) (unknown) (no (unknown) (unknown) Cholelithiasis. (units (unknown) date) unknown) (unknown) (no (unknown) (unknown) Dictated by: (units (u nknown) date) Archana Yang M.D. unknown) on 12/18/2021 at 15:03 (unknown) (no (unknown) (unknown) FINDINGS: (units (unkn own) date) unknown) (unknown) (no (unknown) (unknown) Gallbladder: (units (u nknown) date) Dependent stones unknown) are present within the lumen without wall (unknown) (no (unknown) (unknown) Heart: Enlarged. (units (unknown) date) unknown) (unknown) (no (unknown) (unknown) IMPRESSION: (units (un known) date) unknown) (unknown) (no (unknown) (unknown) INDICATIONS: (units (u nknown) date) Weight loss unknown) (unknown) (no (unknown) (unknown) Image quality: (units (unknown) date) Excellent. unknown) (unknown) (no (unknown) (unknown) Kidneys and (units (un known) date) Ureters: unknown) Unremarkable. (unknown) (no (unknown) (unknown) Liver: (units (unkno wn) date) Unremarkable. unknown) (unknown) (no (unknown) (unknown) Lung bases: Lungs (units (unknown) date) are hyperexpanded unknown) suggestive of COPD. (unknown) (no (unknown) (unknown) Miscellaneous: No (units (unknown) date) inguinal hernias unknown) are seen. (unknown) (no (unknown) (unknown) PELVIS: (units (unkno wn) date) unknown) (unknown) (no (unknown) (unknown) Pancreas: (units (unkn own) date) Unremarkable. unknown) (unknown) (no (unknown) (unknown) Pelvic Nodes: No (units (unknown) date) enlarged lymph unknown) nodes. (unknown) (no (unknown) (unknown) Pelvic Organs: (units (unknown) date) Unremarkable. unknown) (unknown) (no (unknown) (unknown) Peritoneum: No (units (unknown) date) abnormal unknown) intraperitoneal fluid. No free air. (unknown) (no (unknown) (unknown) Significant (units (un known) date) colonic stool is unknown) present. Prominent diffuse diverticula are (unknown) (no (unknown) (unknown) Significant (units (un known) date) diverticulosis. unknown) (unknown) (no (unknown) (unknown) Spleen: (units (unkno wn) date) Unremarkable. unknown) (unknown) (no (unknown) (unknown) Stomach and (units (un known) date) Bowel: Stomach, unknown) small bowel loops, and colon are nonobstructive. (unknown) (no (unknown) (unknown) Subacute (units (unkno wn) date) appearing left unknown) posterior 10th rib fracture. Recommend correlation (unknown) (no (unknown) (unknown) TECHNIQUE: (units (unk nown) date) unknown) (unknown) (no (unknown) (unknown) Ventral Wall: No (units (unknown) date) hernia. unknown) (unknown) (no (unknown) (unknown) Vessels: Aorta (units (unknown) date) and inferior vena unknown) cava are normal in size. (unknown) (no (unknown) (unknown) appearing (units (unkn own) date) posterior left unknown) 10th rib fracture is present. (unknown) (no (unknown) (unknown) lung bases to the (units (unknown) date) pubic symphysis. unknown) Coronal and sagittal reformats were (unknown) (no (unknown) (unknown) notably in the (units (unknown) date) transverse and unknown) descending colon. No associated inflammatory (unknown) (no (unknown) (unknown) of mA and/or kV (units (unknown) date) according to unknown) patient size. (unknown) (no (unknown) (unknown) radiation dose (units (unknown) date) reduction, the unknown) following was used: automated exposure control, (unknown) (no (unknown) (unknown) tenderness. (units (un known) date) unknown) (unknown) (no (unknown) (unknown) [id number] (units (unkn own) date) unknown) (unknown) (no (unknown) (unknown) Accession Number: (units (unknown) date) [id number] unknown) (unknown) (no (unknown) (unknown) Age/Sex: 86 / M (units (unknown) date) Date of Service: unknown) (unknown) (no (unknown) (unknown) : 1935 (units (unknown) date) Acct:[id number] unknown) (unknown) (no (unknown) (unknown) Loc: CT (units (unkno wn) date) unknown) (unknown) (no (unknown) (unknown) Ordering (units (unkno wn) date) Provider: unknown) Benedicto Munoz MD (unknown) (no (unknown) (unknown) PROCEDURE: CT (units ( unknown) date) ABDOMEN PELVIS W unknown) CON (unknown) (no (unknown) (unknown) Patient: (units (unkno wn) date) Eb Flores F unknown) MR#: M (unknown) (no (unknown) (unknown) Procedure: CT (units ( unknown) date) abdomen pelvis w unknown) con (unknown) (no (unknown) (unknown) Subacute (units (unkno wn) date) unknown) (unknown) (no (unknown) (unknown) adjustment (units (unk nown) date) unknown) (unknown) (no (unknown) (unknown) change. (units (unkno wn) date) unknown) (unknown) (no (unknown) (unknown) from the (units (unkno wn) date) unknown) (unknown) (no (unknown) (unknown) performed. For (units (unknown) date) unknown) (unknown) (no (unknown) (unknown) point (units (unkno wn) date) unknown) (unknown) (no (unknown) (unknown) present, most (units ( unknown) date) unknown) (unknown) (no (unknown) (unknown) thickening. (units (un known) date) unknown) Result panel 2 (unknown) (no date) (unknown) (unknown) > 60 mL/min (unkn own) (unknown) (no date) (unknown) (unknown) 1.00 mg/dL (unkn own) (unknown) (no date) (unknown) (unknown) 24 mg/dL (unkn own) (unknown) (no date) (unknown) (unknown) 24.0 (units unknown) (unknown) Result panel 3 (unknown) (no (unknown) (unknown) (no value) (units (unk nown) date) unknown) (unknown) (no (unknown) (unknown) (no value) (units (unk nown) date) unknown) (unknown) (no (unknown) (unknown) [facility] (units (unknown) date) Medicine unknown) (unknown) (no (unknown) (unknown) [place], [place] (units ( unknown) date) [id number] unknown) (unknown) (no (unknown) (unknown) Draft (units (unkno wn) date) unknown) (unknown) (no (unknown) (unknown) Family Practice (units (unknown) date) Office Visit unknown) (unknown) (no (unknown) (unknown) (no value) (units (unk nown) date) unknown) (unknown) (no (unknown) (unknown) [phone] (units (unkno wn) date) unknown) (unknown) (no (unknown) (unknown) 12/24/21 (units (unkno wn) date) unknown) (unknown) (no (unknown) (unknown) Age/Sex: 86 / M (units (unknown) date) Date of Service: unknown) (unknown) (no (unknown) (unknown) Allergies (units (unkn own) date) unknown) (unknown) (no (unknown) (unknown) Anemia (units (unkno wn) date) (08/29/17) unknown) (unknown) (no (unknown) (unknown) Arrhythmia (units (unk nown) date) unknown) (unknown) (no (unknown) (unknown) Atrial (units (unkno wn) date) fibrillation with unknown) rapid ventricular response (05/06/16) (unknown) (no (unknown) (unknown) Attending Dr: (units ( unknown) date) Aditi Saunders MD unknown) (unknown) (no (unknown) (unknown) COPD (chronic (units ( unknown) date) obstructive unknown) pulmonary disease) (unknown) (no (unknown) (unknown) Coronary artery (units (unknown) date) disease involving unknown) coronary bypass graft of qawalangin heart without (unknown) (no (unknown) (unknown) : 1935 (units (unknown) date) Acct:[id number] unknown) (unknown) (no (unknown) (unknown) Dept at (units (unkno wn) date) . unknown) (unknown) (no (unknown) (unknown) Documented By: (units (unknown) date) Aditi Saunders MD unknown) 12/24/21 1020 (unknown) (no (unknown) (unknown) Easy (units (unkno wn) date) bruisability unknown) (unknown) (no (unknown) (unknown) Erectile (units (unkno wn) date) dysfunction unknown) (07/24/16) (unknown) (no (unknown) (unknown) Essential (units (unkn own) date) hypertension unknown) (06/03/16) (unknown) (no (unknown) (unknown) Former smoker (units ( unknown) date) unknown) (unknown) (no (unknown) (unknown) GERD (units (unkno wn) date) (gastroesophageal unknown) reflux disease) (unknown) (no (unknown) (unknown) Hemorrhagic (units (un known) date) stroke unknown) (unknown) (no (unknown) (unknown) History of (units (unk nown) date) colonoscopy unknown) (unknown) (no (unknown) (unknown) Hx of bilateral (units (unknown) date) cataract unknown) extraction (07/2019) (unknown) (no (unknown) (unknown) Hx of cardiac (units ( unknown) date) cath unknown) (unknown) (no (unknown) (unknown) Hx of heart (units (un known) date) artery stent unknown) (1997) (unknown) (no (unknown) (unknown) Intake (units (unkno wn) date) unknown) (unknown) (no (unknown) (unknown) Intake performed (units (unknown) date) by: unknown) HarpalTawana (unknown) (no (unknown) (unknown) Intake- Clincial (units (unknown) date) Staff unknown) (unknown) (no (unknown) (unknown) Jaw fracture (units (u nknown) date) unknown) (unknown) (no (unknown) (unknown) Loc: [facility] (units (unkno wn) date) unknown) (unknown) (no (unknown) (unknown) 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 (07/09/17) (unknown) (no (unknown) (unknown) Medical History (units (unknown) date) (Reviewed unknown) 12/10/21 @ 14:36 by Alexandro English RN) (unknown) (no (unknown) (unknown) Myocardial (units (unk nown) date) infarction (1995) unknown) (unknown) (no (unknown) (unknown) No Known Drug (units ( unknown) date) Allergies Allergy unknown) (Verified 12/10/21 14:35) (unknown) (no (unknown) (unknown) 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 (unknown) (no (unknown) (unknown) PFSH (units (unkno wn) date) unknown) (unknown) (no (unknown) (unknown) Patient: (units (unkno wn) date) Eb Flores unknown) MR#: [id number] (unknown) (no (unknown) (unknown) Reason For Visit (units (unknown) date) unknown) (unknown) (no (unknown) (unknown) 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) unknown) (unknown) (no (unknown) (unknown) Signed By: (units (unk nown) date) unknown) (unknown) (no (unknown) (unknown) Smoking Status: (units (unknown) date) Former smoker unknown) (unknown) (no (unknown) (unknown) Social History (units (unknown) date) unknown) (unknown) (no (unknown) (unknown) Surgical History (units (unknown) date) (Reviewed unknown) 12/10/21 @ 14:36 by Alexandro English RN) (unknown) (no (unknown) (unknown) This note may (units ( unknown) date) have been all or unknown) partially generated using voice recognition (unknown) (no (unknown) (unknown) Tobacco + (units (unkn own) date) Substance Use unknown) (unknown) (no (unknown) (unknown) Tobacco Status (units (unknown) date) unknown) (unknown) (no (unknown) (unknown) Visit Reasons: 1 (units (unknown) date) Mo FU unknown) (unknown) (no (unknown) (unknown) alcohol intake: (units (unknown) date) current unknown) (unknown) (no (unknown) (unknown) angina pectoris (units (unknown) date) (06/03/16) unknown) (unknown) (no (unknown) (unknown) caregiver/suppor (units (unknown) date) t person: No unknown) (unknown) (no (unknown) (unknown) have occurred. (units (unknown) date) If there are any unknown) questions, please contact the Medical Records (unknown) (no (unknown) (unknown) household (units (unkn own) date) members: spouse unknown) (unknown) (no (unknown) (unknown) housing: house (units (unknown) date) unknown) (unknown) (no (unknown) (unknown) lives (units (unkno wn) date) independently: unknown) Yes (unknown) (no (unknown) (unknown) marital status: (units (unknown) date) unknown) (unknown) (no (unknown) (unknown) may occur. (units (unk nown) date) Occasional unknown) wrong-word or 'sound-alike' substitutions may have (unknown) (no (unknown) (unknown) number of (units (unkn own) date) children: 2 unknown) (unknown) (no (unknown) (unknown) occurred due to (units (unknown) date) the inherent unknown) limitations of voice recognition software. Please (unknown) (no (unknown) (unknown) read the note (units ( unknown) date) carefully and unknown) recognize, using context, where these substitutions (unknown) (no (unknown) (unknown) second hand (units (un known) date) exposure: No unknown) (unknown) (no (unknown) (unknown) software. 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 (unknown) (no (unknown) (unknown) substance use (units ( unknown) date) type: does not unknown) use Result panel 4 (unknown) (no (unknown) (unknown) (no value) (units (unk nown) date) unknown) (unknown) (no (unknown) (unknown) (no value) (units (unk nown) date) unknown) (unknown) (no (unknown) (unknown) (no value) (units (unk nown) date) unknown) (unknown) (no (unknown) (unknown) 12/24/21 (units (unkno wn) date) unknown) (unknown) (no (unknown) (unknown) 10:27 (units (unkno wn) date) unknown) (unknown) (no (unknown) (unknown) [facility] (units (unknown) date) Medicine unknown) (unknown) (no (unknown) (unknown) [place] (units ( unknown) date) [id number] unknown) (unknown) (no (unknown) (unknown) Draft (units (unkno wn) date) unknown) (unknown) (no (unknown) (unknown) Family Practice (units (unknown) date) Office Visit unknown) (unknown) (no (unknown) (unknown) (no value) (units (unk nown) date) unknown) (unknown) (no (unknown) (unknown) [phone] (units (unkno wn) date) unknown) (unknown) (no (unknown) (unknown) 12/24/21 (units (unkno wn) date) unknown) (unknown) (no (unknown) (unknown) 12/24/21] (units (unkn own) date) unknown) (unknown) (no (unknown) (unknown) 1 mo f/u (units (unkno wn) date) unknown) (unknown) (no (unknown) (unknown) Accompanied by: (units (unknown) date) unknown) (unknown) (no (unknown) (unknown) Age/Sex: 86 / M (units (unknown) date) Date of Service: unknown) (unknown) (no (unknown) (unknown) Allergies (units (unkn own) date) unknown) (unknown) (no (unknown) (unknown) Anemia (units (unkno wn) date) (08/29/17) unknown) (unknown) (no (unknown) (unknown) Arrhythmia (units (unk nown) date) unknown) (unknown) (no (unknown) (unknown) Atrial (units (unkno wn) date) fibrillation with unknown) rapid ventricular response (05/06/16) (unknown) (no (unknown) (unknown) Attending Dr: (units ( unknown) date) Aditi Saunders MD unknown) (unknown) (no (unknown) (unknown) BMI 22.1 (units (unkno wn) date) unknown) (unknown) (no (unknown) (unknown) BP 128/58 L (units (un known) date) unknown) (unknown) (no (unknown) (unknown) Blood Pressure (units (unknown) date) Location Lt unknown) brachial (unknown) (no (unknown) (unknown) COPD (chronic (units ( unknown) date) obstructive unknown) pulmonary disease) (unknown) (no (unknown) (unknown) Confirmed (units (unkn own) date) 12/24/21] unknown) (unknown) (no (unknown) (unknown) Coronary artery (units (unknown) date) disease involving unknown) coronary bypass graft of qawalangin heart without (unknown) (no (unknown) (unknown) : 1935 (units (unknown) date) Acct:[id number] unknown) (unknown) (no (unknown) (unknown) Dept at (units (unkno wn) date) . unknown) (unknown) (no (unknown) (unknown) Documented By: (units (unknown) date) Aditi Saunders MD unknown) 12/24/21 1020 (unknown) (no (unknown) (unknown) Easy (units (unkno wn) date) bruisability unknown) (unknown) (no (unknown) (unknown) Erectile (units (unkno wn) date) dysfunction unknown) (07/24/16) (unknown) (no (unknown) (unknown) Essential (units (unkn own) date) hypertension unknown) (06/03/16) (unknown) (no (unknown) (unknown) Former smoker (units ( unknown) date) unknown) (unknown) (no (unknown) (unknown) GERD (units (unkno wn) date) (gastroesophageal unknown) reflux disease) (unknown) (no (unknown) (unknown) Health (units (unkno wn) date) Management unknown) (unknown) (no (unknown) (unknown) Health (units (unkno wn) date) Management unknown) reviewed with patient: Yes (unknown) (no (unknown) (unknown) Height 6 ft (units (un known) date) unknown) (unknown) (no (unknown) (unknown) Hemorrhagic (units (un known) date) stroke unknown) (unknown) (no (unknown) (unknown) History of (units (unk nown) date) colonoscopy unknown) (unknown) (no (unknown) (unknown) Hx of bilateral (units (unknown) date) cataract unknown) extraction (07/2019) (unknown) (no (unknown) (unknown) Hx of cardiac (units ( unknown) date) cath unknown) (unknown) (no (unknown) (unknown) Hx of heart (units (un known) date) artery stent unknown) (1997) (unknown) (no (unknown) (unknown) Intake (units (unkno wn) date) unknown) (unknown) (no (unknown) (unknown) Intake Note: (units (u nknown) date) unknown) (unknown) (no (unknown) (unknown) Intake performed (units (unknown) date) by: unknown) Tawana Rowan (unknown) (no (unknown) (unknown) Intake- Clincial (units (unknown) date) Staff unknown) (unknown) (no (unknown) (unknown) Jaw fracture (units (u nknown) date) unknown) (unknown) (no (unknown) (unknown) Loc: [facility] (units (unkno wn) date) unknown) (unknown) (no (unknown) (unknown) 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 (07/09/17) (unknown) (no (unknown) (unknown) Medical History (units (unknown) date) (Reviewed unknown) 12/10/21 @ 14:36 by Alexandro English RN) (unknown) (no (unknown) (unknown) Medications (units (un known) date) unknown) (unknown) (no (unknown) (unknown) Myocardial (units (unk nown) date) infarction (1995) unknown) (unknown) (no (unknown) (unknown) No Known Drug (units ( unknown) date) Allergies Allergy unknown) (Verified 12/24/21 10:26) (unknown) (no (unknown) (unknown) 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 (unknown) (no (unknown) (unknown) Oxygen Delivery (units (unknown) date) Method room air unknown) (unknown) (no (unknown) (unknown) PFSH (units (unkno wn) date) unknown) (unknown) (no (unknown) (unknown) Patient: (units (unkno wn) date) Eb Flores unknown) MR#: [id number] (unknown) (no (unknown) (unknown) Position Sitting (units (unknown) date) unknown) (unknown) (no (unknown) (unknown) Pulse 61 (units (unkno wn) date) unknown) (unknown) (no (unknown) (unknown) Pulse Oximetry (units (unknown) date) (%) 100 unknown) (unknown) (no (unknown) (unknown) Pulse Source (units (u nknown) date) Monitor unknown) (unknown) (no (unknown) (unknown) Reason For Visit (units (unknown) date) unknown) (unknown) (no (unknown) (unknown) Respiration 16 (units (unknown) date) unknown) (unknown) (no (unknown) (unknown) S/P CABG x 3 (units (u nknown) date) (1997) unknown) (unknown) (no (unknown) (unknown) Signed By: (units (unk nown) date) unknown) (unknown) (no (unknown) (unknown) Smoking Status: (units (unknown) date) Former smoker unknown) (unknown) (no (unknown) (unknown) Social History (units (unknown) date) unknown) (unknown) (no (unknown) (unknown) Surgical History (units (unknown) date) (Reviewed unknown) 12/10/21 @ 14:36 by Alexandro English RN) (unknown) (no (unknown) (unknown) Temp 97.3 F L (units ( unknown) date) unknown) (unknown) (no (unknown) (unknown) Temp Source (units (un known) date) Temporal Artery unknown) Scan (unknown) (no (unknown) (unknown) This note may (units ( unknown) date) have been all or unknown) partially generated using voice recognition (unknown) (no (unknown) (unknown) Tobacco + (units (unkn own) date) Substance Use unknown) (unknown) (no (unknown) (unknown) Tobacco Status (units (unknown) date) unknown) (unknown) (no (unknown) (unknown) Visit Reasons: 1 (units (unknown) date) Mo FU unknown) (unknown) (no (unknown) (unknown) Vitals (units (unkno wn) date) unknown) (unknown) (no (unknown) (unknown) Weight 163 lb (units ( unknown) date) unknown) (unknown) (no (unknown) (unknown) [History (units (unkno wn) date) Confirmed unknown) 12/24/21] (unknown) (no (unknown) (unknown) acetaminophen (units ( unknown) date) 500 mg capsule unknown) 500 mg PO Q6H PRN Pain 03/24/18 [History Confirmed (unknown) (no (unknown) (unknown) albuterol (units (unkn own) date) sulfate 90 unknown) mcg/actuation breath activated powder inhaler 2 inh (unknown) (no (unknown) (unknown) alcohol intake: (units (unknown) date) current unknown) (unknown) (no (unknown) (unknown) angina pectoris (units (unknown) date) (06/03/16) unknown) (unknown) (no (unknown) (unknown) atorvastatin 20 (units (unknown) date) mg tablet 20 mg unknown) PO BEDTIME #90 tabs 04/25/21 [Rx Confirmed (unknown) (no (unknown) (unknown) caps 08/28/21 (units ( unknown) date) [Rx Confirmed unknown) 12/24/21] (unknown) (no (unknown) (unknown) caregiver/suppor (units (unknown) date) t person: No unknown) (unknown) (no (unknown) (unknown) diclofenac (units (unk nown) date) sodium 1 % unknown) topical gel (Voltaren Arthritis Pain) 4 g topical QID PRN (unknown) (no (unknown) (unknown) diclofenac (units (unk nown) date) sodium 1 % unknown) topical gel 2 g topical QID #100 grams 08/07/20 [Rx (unknown) (no (unknown) (unknown) fluoxetine 20 mg (units (unknown) date) capsule 20 mg PO unknown) DAILY #90 caps 06/26/21 [Rx Confirmed (unknown) (no (unknown) (unknown) have occurred. (units (unknown) date) If there are any unknown) questions, please contact the Medical Records (unknown) (no (unknown) (unknown) household (units (unkn own) date) members: spouse unknown) (unknown) (no (unknown) (unknown) housing: house (units (unknown) date) unknown) (unknown) (no (unknown) (unknown) inh inhalation (units (unknown) date) QAM #12 grams unknown) 12/12/21 [Rx Confirmed 12/24/21] (unknown) (no (unknown) (unknown) inhalation Q4H (units (unknown) date) PRN shortness of unknown) breath or wheezing #1 ea 11/12/21 [Rx Confirmed (unknown) (no (unknown) (unknown) lives (units (unkno wn) date) independently: unknown) Yes (unknown) (no (unknown) (unknown) losartan 100 mg (units (unknown) date) tablet 100 mg PO unknown) BEDTIME BP #90 tabs 07/24/20 [Rx Confirmed (unknown) (no (unknown) (unknown) marital status: (units (unknown) date) unknown) (unknown) (no (unknown) (unknown) may occur. (units (unk nown) date) Occasional unknown) wrong-word or 'sound-alike' substitutions may have (unknown) (no (unknown) (unknown) metoprolol (units (unk nown) date) tartrate 50 mg unknown) tablet 50 mg PO BID #180 tabs 11/23/21 [Rx Confirmed (unknown) (no (unknown) (unknown) number of (units (unkn own) date) children: 2 unknown) (unknown) (no (unknown) (unknown) occurred due to (units (unknown) date) the inherent unknown) limitations of voice recognition software. Please (unknown) (no (unknown) (unknown) omeprazole 40 mg (units (unknown) date) capsule,delayed unknown) release See Rx Instructions .Route .COMPLEX #90 (unknown) (no (unknown) (unknown) pain #100 grams (units (unknown) date) 08/30/21 [Rx unknown) Confirmed 12/24/21] (unknown) (no (unknown) (unknown) placebo vs (units (unk nown) date) aspirin .Route unknown) 04/11/20 [History Confirmed 12/24/21] (unknown) (no (unknown) (unknown) pt is ok with (units ( unknown) date) student unknown) (unknown) (no (unknown) (unknown) read the note (units ( unknown) date) carefully and unknown) recognize, using context, where these substitutions (unknown) (no (unknown) (unknown) rivaroxaban 20 (units (unknown) date) mg tablet unknown) (Xarelto) 20 mg PO QPM #90 tabs 05/16/20 [Rx Confirmed (unknown) (no (unknown) (unknown) second hand (units (un known) date) exposure: No unknown) (unknown) (no (unknown) (unknown) software. 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 (unknown) (no (unknown) (unknown) substance use (units ( unknown) date) type: does not unknown) use (unknown) (no (unknown) (unknown) tadalafil 10 mg (units (unknown) date) tablet (Cialis) unknown) 10 mg PO PRN PRN Sexual Activity 11/05/19 (unknown) (no (unknown) (unknown) tiotropium (units (unk nown) date) bromide 2.5 unknown) mcg/actuation mist for inhalation (Spiriva Respimat) 2 Result panel 5 (unknown) (no (unknown) (unknown) (no value) (units (unk nown) date) unknown) (unknown) (no (unknown) (unknown) (no value) (units (unk nown) date) unknown) (unknown) (no (unknown) (unknown) (no value) (units (unk nown) date) unknown) (unknown) (no (unknown) (unknown) [facility] (units (unknown) date) Medicine unknown) (unknown) (no (unknown) (unknown) [place] (units ( unknown) date) [id number] unknown) (unknown) (no (unknown) (unknown) Draft (units (unkno wn) date) unknown) (unknown) (no (unknown) (unknown) Family Practice (units (unknown) date) Office Visit unknown) (unknown) (no (unknown) (unknown) (no value) (units (unk nown) date) unknown) (unknown) (no (unknown) (unknown) [id number] (units (unkno wn) date) unknown) (unknown) (no (unknown) (unknown) 12/24/21 (units (unkno wn) date) unknown) (unknown) (no (unknown) (unknown) 12/24/21] (units (unkn own) date) unknown) (unknown) (no (unknown) (unknown) 1 mo f/u (units (unkno wn) date) unknown) (unknown) (no (unknown) (unknown) 2x/week. usually (units (unknown) date) at lunch, not unknown) productive. No chest pain, palpitations, fever, (unknown) (no (unknown) (unknown) Accompanied by: (units (unknown) date) unknown) (unknown) (no (unknown) (unknown) Afib well (units (unkn own) date) controlled, no unknown) new symtpmes. (unknown) (no (unknown) (unknown) Age/Sex: 86 / M (units (unknown) date) Date of Service: unknown) (unknown) (no (unknown) (unknown) Allergies (units (unkn own) date) unknown) (unknown) (no (unknown) (unknown) Anemia (units (unkno wn) date) (08/29/17) unknown) (unknown) (no (unknown) (unknown) Arrhythmia (units (unk nown) date) unknown) (unknown) (no (unknown) (unknown) Atrial (units (unkno wn) date) fibrillation with unknown) rapid ventricular response (05/06/16) (unknown) (no (unknown) (unknown) Attending Dr: (units ( unknown) date) Aditi Saunders MD unknown) (unknown) (no (unknown) (unknown) COPD (chronic (units ( unknown) date) obstructive unknown) pulmonary disease) (unknown) (no (unknown) (unknown) Confirmed (units (unkn own) date) 12/24/21] unknown) (unknown) (no (unknown) (unknown) Coronary artery (units (unknown) date) disease involving unknown) coronary bypass graft of q[place]in heart without (unknown) (no (unknown) (unknown) : 1935 (units (unknown) date) Acct:[id number] unknown) (unknown) (no (unknown) (unknown) Dept at (units (unkno wn) date) . unknown) (unknown) (no (unknown) (unknown) Documented By: (units (unknown) date) Aditi Saunders MD unknown) 12/24/21 1020 (unknown) (no (unknown) (unknown) Easy (units (unkno wn) date) bruisability unknown) (unknown) (no (unknown) (unknown) Erectile (units (unkno wn) date) dysfunction unknown) (07/24/16) (unknown) (no (unknown) (unknown) Essential (units (unkn own) date) hypertension unknown) (06/03/16) (unknown) (no (unknown) (unknown) Former smoker (units ( unknown) date) unknown) (unknown) (no (unknown) (unknown) GERD (units (unkno wn) date) (gastroesophageal unknown) reflux disease) (unknown) (no (unknown) (unknown) He has continued (units (unknown) date) to have falls, unknown) 2-3 in the last month. He denies any dizziness, (unknown) (no (unknown) (unknown) He states his (units ( unknown) date) cough is mostly unknown) in the morning and producing flegm. He feels like (unknown) (no (unknown) (unknown) Health (units (unkno wn) date) Management unknown) (unknown) (no (unknown) (unknown) Health (units (unkno wn) date) Management unknown) reviewed with patient: Yes (unknown) (no (unknown) (unknown) Hemorrhagic (units (un known) date) stroke unknown) (unknown) (no (unknown) (unknown) History of (units (unk nown) date) colonoscopy unknown) (unknown) (no (unknown) (unknown) Hx of bilateral (units (unknown) date) cataract unknown) extraction (07/2019) (unknown) (no (unknown) (unknown) Hx of cardiac (units ( unknown) date) cath unknown) (unknown) (no (unknown) (unknown) Hx of heart (units (un known) date) artery stent unknown) (1997) (unknown) (no (unknown) (unknown) Intake (units (unkno wn) date) unknown) (unknown) (no (unknown) (unknown) Intake Note: (units (u nknown) date) unknown) (unknown) (no (unknown) (unknown) Intake performed (units (unknown) date) by: unknown) Tawana Rowan (unknown) (no (unknown) (unknown) Intake- Clincial (units (unknown) date) Staff unknown) (unknown) (no (unknown) (unknown) Jaw fracture (units (u nknown) date) unknown) (unknown) (no (unknown) (unknown) Loc: [facility] (units (unkno wn) date) unknown) (unknown) (no (unknown) (unknown) 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 (07/09/17) (unknown) (no (unknown) (unknown) Medical History (units (unknown) date) (Reviewed unknown) 12/10/21 @ 14:36 by Alexandro English RN) (unknown) (no (unknown) (unknown) Medications (units (un known) date) unknown) (unknown) (no (unknown) (unknown) Myocardial (units (unk nown) date) infarction (1995) unknown) (unknown) (no (unknown) (unknown) No Known Drug (units ( unknown) date) Allergies Allergy unknown) (Verified 12/24/21 10:26) (unknown) (no (unknown) (unknown) 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 (unknown) (no (unknown) (unknown) Note (units (unkno wn) date) unknown) (unknown) (no (unknown) (unknown) Note: (units (unkno wn) date) unknown) (unknown) (no (unknown) (unknown) Notes (units (unkno wn) date) unknown) (unknown) (no (unknown) (unknown) PFSH (units (unkno wn) date) unknown) (unknown) (no (unknown) (unknown) Patient: (units (unkno wn) date) Eb Flores unknown) MR#: [id number] (unknown) (no (unknown) (unknown) Reason For Visit (units (unknown) date) unknown) (unknown) (no (unknown) (unknown) 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) unknown) (unknown) (no (unknown) (unknown) Signed By: (units (unk nown) date) unknown) (unknown) (no (unknown) (unknown) Smoking Status: (units (unknown) date) Former smoker unknown) (unknown) (no (unknown) (unknown) Social History (units (unknown) date) unknown) (unknown) (no (unknown) (unknown) Surgical History (units (unknown) date) (Reviewed unknown) 12/10/21 @ 14:36 by Alexandro English RN) (unknown) (no (unknown) (unknown) This note may (units ( unknown) date) have been all or unknown) partially generated using voice recognition (unknown) (no (unknown) (unknown) Tobacco + (units (unkn own) date) Substance Use unknown) (unknown) (no (unknown) (unknown) Tobacco Status (units (unknown) date) unknown) (unknown) (no (unknown) (unknown) Visit Reasons: 1 (units (unknown) date) Mo FU unknown) (unknown) (no (unknown) (unknown) [History (units (unkno wn) date) Confirmed unknown) 12/24/21] (unknown) (no (unknown) (unknown) acetaminophen (units ( unknown) date) 500 mg capsule unknown) 500 mg PO Q6H PRN Pain 03/24/18 [History Confirmed (unknown) (no (unknown) (unknown) albuterol (units (unkn own) date) sulfate 90 unknown) mcg/actuation breath activated powder inhaler 2 inh (unknown) (no (unknown) (unknown) alcohol intake: (units (unknown) date) current unknown) (unknown) (no (unknown) (unknown) an dis going to (units (unknown) date) PT. ask about unknown) getting appt for ear wax removal out. (unknown) (no (unknown) (unknown) angina pectoris (units (unknown) date) (06/03/16) unknown) (unknown) (no (unknown) (unknown) atorvastatin 20 (units (unknown) date) mg tablet 20 mg unknown) PO BEDTIME #90 tabs 04/25/21 [Rx Confirmed (unknown) (no (unknown) (unknown) caps 08/28/21 (units ( unknown) date) [Rx Confirmed unknown) 12/24/21] (unknown) (no (unknown) (unknown) caregiver/suppor (units (unknown) date) t person: No unknown) (unknown) (no (unknown) (unknown) chills, sob. (units (u nknown) date) unknown) (unknown) (no (unknown) (unknown) diclofenac (units (unk nown) date) sodium 1 % unknown) topical gel (Voltaren Arthritis Pain) 4 g topical QID PRN (unknown) (no (unknown) (unknown) diclofenac (units (unk nown) date) sodium 1 % unknown) topical gel 2 g topical QID #100 grams 08/07/20 [Rx (unknown) (no (unknown) (unknown) fluoxetine 20 mg (units (unknown) date) capsule 20 mg PO unknown) DAILY #90 caps 06/26/21 [Rx Confirmed (unknown) (no (unknown) (unknown) have occurred. (units (unknown) date) If there are any unknown) questions, please contact the Medical Records (unknown) (no (unknown) (unknown) he is choking (units ( unknown) date) when eating. . He unknown) states the albuterol is hepping, he uses it 1- (unknown) (no (unknown) (unknown) headaches, light (units (unknown) date) headedness or unknown) near syncopy. He does endorse some balance issues (unknown) (no (unknown) (unknown) household (units (unkn own) date) members: spouse unknown) (unknown) (no (unknown) (unknown) housing: house (units (unknown) date) unknown) (unknown) (no (unknown) (unknown) inh inhalation (units (unknown) date) QAM #12 grams unknown) 12/12/21 [Rx Confirmed 12/24/21] (unknown) (no (unknown) (unknown) inhalation Q4H (units (unknown) date) PRN shortness of unknown) breath or wheezing #1 ea 11/12/21 [Rx Confirmed (unknown) (no (unknown) (unknown) lives (units (unkno wn) date) independently: unknown) Yes (unknown) (no (unknown) (unknown) losartan 100 mg (units (unknown) date) tablet 100 mg PO unknown) BEDTIME BP #90 tabs 07/24/20 [Rx Confirmed (unknown) (no (unknown) (unknown) marital status: (units (unknown) date) unknown) (unknown) (no (unknown) (unknown) may occur. (units (unk nown) date) Occasional unknown) wrong-word or 'sound-alike' substitutions may have (unknown) (no (unknown) (unknown) metoprolol (units (unk nown) date) tartrate 50 mg unknown) tablet 50 mg PO BID #180 tabs 11/23/21 [Rx Confirmed (unknown) (no (unknown) (unknown) number of (units (unkn own) date) children: 2 unknown) (unknown) (no (unknown) (unknown) occurred due to (units (unknown) date) the inherent unknown) limitations of voice recognition software. Please (unknown) (no (unknown) (unknown) omeprazole 40 mg (units (unknown) date) capsule,delayed unknown) release See Rx Instructions .Route .COMPLEX #90 (unknown) (no (unknown) (unknown) pain #100 grams (units (unknown) date) 08/30/21 [Rx unknown) Confirmed 12/24/21] (unknown) (no (unknown) (unknown) placebo vs (units (unk nown) date) aspirin .Route unknown) 04/11/20 [History Confirmed 12/24/21] (unknown) (no (unknown) (unknown) pt is ok with (units ( unknown) date) student unknown) (unknown) (no (unknown) (unknown) read the note (units ( unknown) date) carefully and unknown) recognize, using context, where these substitutions (unknown) (no (unknown) (unknown) rivaroxaban 20 (units (unknown) date) mg tablet unknown) (Xarelto) 20 mg PO QPM #90 tabs 05/16/20 [Rx Confirmed (unknown) (no (unknown) (unknown) second hand (units (un known) date) exposure: No unknown) (unknown) (no (unknown) (unknown) software. 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 (unknown) (no (unknown) (unknown) substance use (units ( unknown) date) type: does not unknown) use (unknown) (no (unknown) (unknown) tadalafil 10 mg (units (unknown) date) tablet (Cialis) unknown) 10 mg PO PRN PRN Sexual Activity 11/05/19 (unknown) (no (unknown) (unknown) tiotropium (units (unk nown) date) bromide 2.5 unknown) mcg/actuation mist for inhalation (Spiriva Respimat) 2 Result panel 6 (unknown) (no (unknown) (unknown) (no value) (units (unk nown) date) unknown) (unknown) (no (unknown) (unknown) (no value) (units (unk nown) date) unknown) (unknown) (no (unknown) (unknown) (no value) (units (unk nown) date) unknown) (unknown) (no (unknown) (unknown) [facility] (units (unknown) date) Medicine unknown) (unknown) (no (unknown) (unknown) [place] (units ( unknown) date) [id number] unknown) (unknown) (no (unknown) (unknown) Draft (units (unkno wn) date) unknown) (unknown) (no (unknown) (unknown) Family Practice (units (unknown) date) Office Visit unknown) (unknown) (no (unknown) (unknown) (no value) (units (unk nown) date) unknown) (unknown) (no (unknown) (unknown) [id number] (units (unkno wn) date) unknown) (unknown) (no (unknown) (unknown) 12/24/21 (units (unkno wn) date) unknown) (unknown) (no (unknown) (unknown) 12/24/21] (units (unkn own) date) unknown) (unknown) (no (unknown) (unknown) 1 mo f/u (units (unkno wn) date) unknown) (unknown) (no (unknown) (unknown) 2x/week. usually (units (unknown) date) at lunch, not unknown) productive. No chest pain, palpitations, fever, (unknown) (no (unknown) (unknown) Accompanied by: (units (unknown) date) unknown) (unknown) (no (unknown) (unknown) Afib well (units (unkn own) date) controlled, no unknown) new symtpmes. (unknown) (no (unknown) (unknown) Age/Sex: 86 / M (units (unknown) date) Date of Service: unknown) (unknown) (no (unknown) (unknown) Allergies (units (unkn own) date) unknown) (unknown) (no (unknown) (unknown) Anemia (units (unkno wn) date) (08/29/17) unknown) (unknown) (no (unknown) (unknown) Arrhythmia (units (unk nown) date) unknown) (unknown) (no (unknown) (unknown) Atrial (units (unkno wn) date) fibrillation with unknown) rapid ventricular response (05/06/16) (unknown) (no (unknown) (unknown) Attending Dr: (units ( unknown) date) Aditi Saunders MD unknown) (unknown) (no (unknown) (unknown) COPD (chronic (units ( unknown) date) obstructive unknown) pulmonary disease) (unknown) (no (unknown) (unknown) Confirmed (units (unkn own) date) 12/24/21] unknown) (unknown) (no (unknown) (unknown) Coronary artery (units (unknown) date) disease involving unknown) coronary bypass graft of qaw[place]angin heart without (unknown) (no (unknown) (unknown) : 1935 (units (unknown) date) Acct:[id number] unknown) (unknown) (no (unknown) (unknown) Dept at (units (unkno wn) date) . unknown) (unknown) (no (unknown) (unknown) Documented By: (units (unknown) date) Aditi Saunders MD unknown) 12/24/21 1020 (unknown) (no (unknown) (unknown) Easy (units (unkno wn) date) bruisability unknown) (unknown) (no (unknown) (unknown) Erectile (units (unkno wn) date) dysfunction unknown) (07/24/16) (unknown) (no (unknown) (unknown) Essential (units (unkn own) date) hypertension unknown) (06/03/16) (unknown) (no (unknown) (unknown) Former smoker (units ( unknown) date) unknown) (unknown) (no (unknown) (unknown) GERD (units (unkno wn) date) (gastroesophageal unknown) reflux disease) (unknown) (no (unknown) (unknown) He 3 years ago (units (unknown) date) he weight 195. unknown) (unknown) (no (unknown) (unknown) He has continued (units (unknown) date) to have falls, unknown) 2-3 in the last month. He denies any dizziness, (unknown) (no (unknown) (unknown) He states his (units ( unknown) date) cough is mostly unknown) in the morning and producing flegm. He feels like (unknown) (no (unknown) (unknown) Health (units (unkno wn) date) Management unknown) (unknown) (no (unknown) (unknown) Health (units (unkno wn) date) Management unknown) reviewed with patient: Yes (unknown) (no (unknown) (unknown) Hemorrhagic (units (un known) date) stroke unknown) (unknown) (no (unknown) (unknown) History of (units (unk nown) date) colonoscopy unknown) (unknown) (no (unknown) (unknown) Hx of bilateral (units (unknown) date) cataract unknown) extraction (07/2019) (unknown) (no (unknown) (unknown) Hx of cardiac (units ( unknown) date) cath unknown) (unknown) (no (unknown) (unknown) Hx of heart (units (un known) date) artery stent unknown) (1997) (unknown) (no (unknown) (unknown) Intake (units (unkno wn) date) unknown) (unknown) (no (unknown) (unknown) Intake Note: (units (u nknown) date) unknown) (unknown) (no (unknown) (unknown) Intake performed (units (unknown) date) by: unknown) Tawana Rowna (unknown) (no (unknown) (unknown) Intake- Clincial (units (unknown) date) Staff unknown) (unknown) (no (unknown) (unknown) Jaw fracture (units (u nknown) date) unknown) (unknown) (no (unknown) (unknown) Loc: [facility] (units (unkno wn) date) unknown) (unknown) (no (unknown) (unknown) 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 (07/09/17) (unknown) (no (unknown) (unknown) Medical History (units (unknown) date) (Reviewed unknown) 12/10/21 @ 14:36 by Alexandro English RN) (unknown) (no (unknown) (unknown) Medications (units (un known) date) unknown) (unknown) (no (unknown) (unknown) Myocardial (units (unk nown) date) infarction (1995) unknown) (unknown) (no (unknown) (unknown) No Known Drug (units ( unknown) date) Allergies Allergy unknown) (Verified 12/24/21 10:26) (unknown) (no (unknown) (unknown) 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 (unknown) (no (unknown) (unknown) Note (units (unkno wn) date) unknown) (unknown) (no (unknown) (unknown) Note: (units (unkno wn) date) unknown) (unknown) (no (unknown) (unknown) Notes (units (unkno wn) date) unknown) (unknown) (no (unknown) (unknown) PFSH (units (unkno wn) date) unknown) (unknown) (no (unknown) (unknown) Patient: (units (unkno wn) date) Eb Flores F unknown) MR#: [id number] (unknown) (no (unknown) (unknown) Reason For Visit (units (unknown) date) unknown) (unknown) (no (unknown) (unknown) S/P CABG x 3 (units (u nknown) date) (1997) unknown) (unknown) (no (unknown) (unknown) Signed By: (units (unk nown) date) unknown) (unknown) (no (unknown) (unknown) Smoking Status: (units (unknown) date) Former smoker unknown) (unknown) (no (unknown) (unknown) Social History (units (unknown) date) unknown) (unknown) (no (unknown) (unknown) Surgical History (units (unknown) date) (Reviewed unknown) 12/10/21 @ 14:36 by Alexandro English RN) (unknown) (no (unknown) (unknown) This note may (units ( unknown) date) have been all or unknown) partially generated using voice recognition (unknown) (no (unknown) (unknown) Tobacco + (units (unkn own) date) Substance Use unknown) (unknown) (no (unknown) (unknown) Tobacco Status (units (unknown) date) unknown) (unknown) (no (unknown) (unknown) Visit Reasons: 1 (units (unknown) date) Mo FU unknown) (unknown) (no (unknown) (unknown) [History (units (unkno wn) date) Confirmed unknown) 12/24/21] (unknown) (no (unknown) (unknown) acetaminophen (units ( unknown) date) 500 mg capsule unknown) 500 mg PO Q6H PRN Pain 03/24/18 [History Confirmed (unknown) (no (unknown) (unknown) albuterol (units (unkn own) date) sulfate 90 unknown) mcg/actuation breath activated powder inhaler 2 inh (unknown) (no (unknown) (unknown) alcohol intake: (units (unknown) date) current unknown) (unknown) (no (unknown) (unknown) an dis going to (units (unknown) date) PT. ask about unknown) getting appt for ear wax removal out. (unknown) (no (unknown) (unknown) angina pectoris (units (unknown) date) (06/03/16) unknown) (unknown) (no (unknown) (unknown) atorvastatin 20 (units (unknown) date) mg tablet 20 mg unknown) PO BEDTIME #90 tabs 04/25/21 [Rx Confirmed (unknown) (no (unknown) (unknown) caps 08/28/21 (units ( unknown) date) [Rx Confirmed unknown) 12/24/21] (unknown) (no (unknown) (unknown) caregiver/suppor (units (unknown) date) t person: No unknown) (unknown) (no (unknown) (unknown) chills, sob. (units (u nknown) date) unknown) (unknown) (no (unknown) (unknown) diclofenac (units (unk nown) date) sodium 1 % unknown) topical gel (Voltaren Arthritis Pain) 4 g topical QID PRN (unknown) (no (unknown) (unknown) diclofenac (units (unk nown) date) sodium 1 % unknown) topical gel 2 g topical QID #100 grams 08/07/20 [Rx (unknown) (no (unknown) (unknown) fluoxetine 20 mg (units (unknown) date) capsule 20 mg PO unknown) DAILY #90 caps 06/26/21 [Rx Confirmed (unknown) (no (unknown) (unknown) have occurred. (units (unknown) date) If there are any unknown) questions, please contact the Medical Records (unknown) (no (unknown) (unknown) he is choking (units ( unknown) date) when eating. . He unknown) states the albuterol is hepping, he uses it 1- (unknown) (no (unknown) (unknown) headaches, light (units (unknown) date) headedness or unknown) near syncopy. He does endorse some balance issues (unknown) (no (unknown) (unknown) household (units (unkn own) date) members: spouse unknown) (unknown) (no (unknown) (unknown) housing: house (units (unknown) date) unknown) (unknown) (no (unknown) (unknown) inh inhalation (units (unknown) date) QAM #12 grams unknown) 12/12/21 [Rx Confirmed 12/24/21] (unknown) (no (unknown) (unknown) inhalation Q4H (units (unknown) date) PRN shortness of unknown) breath or wheezing #1 ea 11/12/21 [Rx Confirmed (unknown) (no (unknown) (unknown) lives (units (unkno wn) date) independently: unknown) Yes (unknown) (no (unknown) (unknown) losartan 100 mg (units (unknown) date) tablet 100 mg PO unknown) BEDTIME BP #90 tabs 07/24/20 [Rx Confirmed (unknown) (no (unknown) (unknown) marital status: (units (unknown) date) unknown) (unknown) (no (unknown) (unknown) may occur. (units (unk nown) date) Occasional unknown) wrong-word or 'sound-alike' substitutions may have (unknown) (no (unknown) (unknown) metoprolol (units (unk nown) date) tartrate 50 mg unknown) tablet 50 mg PO BID #180 tabs 11/23/21 [Rx Confirmed (unknown) (no (unknown) (unknown) number of (units (unkn own) date) children: 2 unknown) (unknown) (no (unknown) (unknown) occurred due to (units (unknown) date) the inherent unknown) limitations of voice recognition software. Please (unknown) (no (unknown) (unknown) omeprazole 40 mg (units (unknown) date) capsule,delayed unknown) release See Rx Instructions .Route .COMPLEX #90 (unknown) (no (unknown) (unknown) pain #100 grams (units (unknown) date) 08/30/21 [Rx unknown) Confirmed 12/24/21] (unknown) (no (unknown) (unknown) placebo vs (units (unk nown) date) aspirin .Route unknown) 04/11/20 [History Confirmed 12/24/21] (unknown) (no (unknown) (unknown) pt is ok with (units ( unknown) date) student unknown) (unknown) (no (unknown) (unknown) read the note (units ( unknown) date) carefully and unknown) recognize, using context, where these substitutions (unknown) (no (unknown) (unknown) rivaroxaban 20 (units (unknown) date) mg tablet unknown) (Xarelto) 20 mg PO QPM #90 tabs 05/16/20 [Rx Confirmed (unknown) (no (unknown) (unknown) second hand (units (un known) date) exposure: No unknown) (unknown) (no (unknown) (unknown) software. 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 (unknown) (no (unknown) (unknown) substance use (units ( unknown) date) type: does not unknown) use (unknown) (no (unknown) (unknown) tadalafil 10 mg (units (unknown) date) tablet (Cialis) unknown) 10 mg PO PRN PRN Sexual Activity 11/05/19 (unknown) (no (unknown) (unknown) tiotropium (units (unk nown) date) bromide 2.5 unknown) mcg/actuation mist for inhalation (Spiriva Respimat) 2 Result panel 7 (unknown) (no (unknown) (unknown) (no value) (units (unk nown) date) unknown) (unknown) (no (unknown) (unknown) (no value) (units (unk nown) date) unknown) (unknown) (no (unknown) (unknown) (no value) (units (unk nown) date) unknown) (unknown) (no (unknown) (unknown) [facility] (units (unknown) date) Medicine unknown) (unknown) (no (unknown) (unknown) [place] (units ( unknown) date) [id number] unknown) (unknown) (no (unknown) (unknown) Draft (units (unkno wn) date) unknown) (unknown) (no (unknown) (unknown) Family [facility] (units (unknown) date) Office Visit unknown) (unknown) (no (unknown) (unknown) (no value) (units (unk nown) date) unknown) (unknown) (no (unknown) (unknown) [id number] (units (unkno wn) date) unknown) (unknown) (no (unknown) (unknown) 12/24/21 (units (unkno wn) date) unknown) (unknown) (no (unknown) (unknown) 12/24/21] (units (unkn own) date) unknown) (unknown) (no (unknown) (unknown) 1 mo f/u (units (unkno wn) date) unknown) (unknown) (no (unknown) (unknown) 2x/week. usually (units (unknown) date) at lunch, not unknown) productive. No chest pain, palpitations, fever, (unknown) (no (unknown) (unknown) Accompanied by: (units (unknown) date) unknown) (unknown) (no (unknown) (unknown) Afib well (units (unkn own) date) controlled, no unknown) new symtpmes. (unknown) (no (unknown) (unknown) Age/Sex: 86 / M (units (unknown) date) Date of Service: unknown) (unknown) (no (unknown) (unknown) Allergies (units (unkn own) date) unknown) (unknown) (no (unknown) (unknown) Anemia (units (unkno wn) date) (08/29/17) unknown) (unknown) (no (unknown) (unknown) Arrhythmia (units (unk nown) date) unknown) (unknown) (no (unknown) (unknown) Atrial (units (unkno wn) date) fibrillation with unknown) rapid ventricular response (05/06/16) (unknown) (no (unknown) (unknown) Attending Dr: (units ( unknown) date) Aditi Saunders MD unknown) (unknown) (no (unknown) (unknown) COPD (chronic (units ( unknown) date) obstructive unknown) pulmonary disease) (unknown) (no (unknown) (unknown) Confirmed (units (unkn own) date) 12/24/21] unknown) (unknown) (no (unknown) (unknown) 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 unknown) (unknown) (no (unknown) (unknown) Documented By: (units (unknown) date) Aditi Saunders MD unknown) 12/24/21 1020 (unknown) (no (unknown) (unknown) Easy (units (unkno wn) date) bruisability unknown) (unknown) (no (unknown) (unknown) Erectile (units (unkno wn) date) dysfunction unknown) (07/24/16) (unknown) (no (unknown) (unknown) Essential (units (unkn own) date) hypertension unknown) (06/03/16) (unknown) (no (unknown) (unknown) Former smoker (units ( unknown) date) unknown) (unknown) (no (unknown) (unknown) GERD (units (unkno wn) date) (gastroesophageal unknown) reflux disease) (unknown) (no (unknown) (unknown) He 3 years ago (units (unknown) date) he weight 195. unknown) (unknown) (no (unknown) (unknown) He has continued (units (unknown) date) to have falls, unknown) 2-3 in the last month. He denies any dizziness, (unknown) (no (unknown) (unknown) He states his (units ( unknown) date) cough is mostly unknown) in the morning and producing flegm. He feels like (unknown) (no (unknown) (unknown) Health (units (unkno wn) date) Management unknown) (unknown) (no (unknown) (unknown) Health (units (unkno wn) date) Management unknown) reviewed with patient: Yes (unknown) (no (unknown) (unknown) Hemorrhagic (units (un known) date) stroke unknown) (unknown) (no (unknown) (unknown) History of (units (unk nown) date) colonoscopy unknown) (unknown) (no (unknown) (unknown) Hx of bilateral (units (unknown) date) cataract unknown) extraction (07/2019) (unknown) (no (unknown) (unknown) Hx of cardiac (units ( unknown) date) cath unknown) (unknown) (no (unknown) (unknown) Hx of heart (units (un known) date) artery stent unknown) (1998) (unknown) (no (unknown) (unknown) Intake (units (unkno wn) date) unknown) (unknown) (no (unknown) (unknown) Intake Note: (units (u nknown) date) unknown) (unknown) (no (unknown) (unknown) Intake performed (units (unknown) date) by: unknown) Tawana Rowan (unknown) (no (unknown) (unknown) Intake- Clincial (units (unknown) date) Staff unknown) (unknown) (no (unknown) (unknown) Jaw fracture (units (u nknown) date) unknown) (unknown) (no (unknown) (unknown) Loc: [facility] (units (unkno wn) date) unknown) (unknown) (no (unknown) (unknown) 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 (07/09/17) (unknown) (no (unknown) (unknown) Medical History (units (unknown) date) (Reviewed unknown) 12/10/21 @ 14:36 by Alexandro English RN) (unknown) (no (unknown) (unknown) Medications (units (un known) date) unknown) (unknown) (no (unknown) (unknown) Myocardial (units (unk nown) date) infarction (1995) unknown) (unknown) (no (unknown) (unknown) No Known Drug (units ( unknown) date) Allergies Allergy unknown) (Verified 12/24/21 10:26) (unknown) (no (unknown) (unknown) 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 (unknown) (no (unknown) (unknown) Note (units (unkno wn) date) unknown) (unknown) (no (unknown) (unknown) Note: (units (unkno wn) date) unknown) (unknown) (no (unknown) (unknown) Notes (units (unkno wn) date) unknown) (unknown) (no (unknown) (unknown) PFSH (units (unkno wn) date) unknown) (unknown) (no (unknown) (unknown) Patient: (units (unkno wn) date) Eb Flores unknown) MR#: [id number] (unknown) (no (unknown) (unknown) Reason For Visit (units (unknown) date) unknown) (unknown) (no (unknown) (unknown) 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) unknown) (unknown) (no (unknown) (unknown) Signed By: (units (unk nown) date) unknown) (unknown) (no (unknown) (unknown) Smoking Status: (units (unknown) date) Former smoker unknown) (unknown) (no (unknown) (unknown) Social History (units (unknown) date) unknown) (unknown) (no (unknown) (unknown) Surgical History (units (unknown) date) (Reviewed unknown) 12/10/21 @ 14:36 by Alexandro English RN) (unknown) (no (unknown) (unknown) This note may (units ( unknown) date) have been all or unknown) partially generated using voice recognition (unknown) (no (unknown) (unknown) Tobacco + (units (unkn own) date) Substance Use unknown) (unknown) (no (unknown) (unknown) Tobacco Status (units (unknown) date) unknown) (unknown) (no (unknown) (unknown) Visit Reasons: 1 (units (unknown) date) Mo FU unknown) (unknown) (no (unknown) (unknown) [History (units (unkno wn) date) Confirmed unknown) 12/24/21] (unknown) (no (unknown) (unknown) acetaminophen (units ( unknown) date) 500 mg capsule unknown) 500 mg PO Q6H PRN Pain 03/24/18 [History Confirmed (unknown) (no (unknown) (unknown) albuterol (units (unkn own) date) sulfate 90 unknown) mcg/actuation breath activated powder inhaler 2 inh (unknown) (no (unknown) (unknown) alcohol intake: (units (unknown) date) current unknown) (unknown) (no (unknown) (unknown) an dis going to (units (unknown) date) PT. ask about unknown) getting appt for ear wax removal out. (unknown) (no (unknown) (unknown) angina pectoris (units (unknown) date) (06/03/16) unknown) (unknown) (no (unknown) (unknown) atorvastatin 20 (units (unknown) date) mg tablet 20 mg unknown) PO BEDTIME #90 tabs 04/25/21 [Rx Confirmed (unknown) (no (unknown) (unknown) caps 08/28/21 (units ( unknown) date) [Rx Confirmed unknown) 12/24/21] (unknown) (no (unknown) (unknown) caregiver/suppor (units (unknown) date) t person: No unknown) (unknown) (no (unknown) (unknown) chills, sob. (units (u nknown) date) unknown) (unknown) (no (unknown) (unknown) diclofenac (units (unk nown) date) sodium 1 % unknown) topical gel (Voltaren Arthritis Pain) 4 g topical QID PRN (unknown) (no (unknown) (unknown) diclofenac (units (unk nown) date) sodium 1 % unknown) topical gel 2 g topical QID #100 grams 08/07/20 [Rx (unknown) (no (unknown) (unknown) fluoxetine 20 mg (units (unknown) date) capsule 20 mg PO unknown) DAILY #90 caps 06/26/21 [Rx Confirmed (unknown) (no (unknown) (unknown) have occurred. (units (unknown) date) If there are any unknown) questions, please contact the Medical Records (unknown) (no (unknown) (unknown) he is choking (units ( unknown) date) when eating. . He unknown) states the albuterol is hepping, he uses it 1- (unknown) (no (unknown) (unknown) headaches, light (units (unknown) date) headedness or unknown) near syncopy. He does endorse some balance issues (unknown) (no (unknown) (unknown) household (units (unkn own) date) members: spouse unknown) (unknown) (no (unknown) (unknown) housing: house (units (unknown) date) unknown) (unknown) (no (unknown) (unknown) inh inhalation (units (unknown) date) QAM #12 grams unknown) 12/12/21 [Rx Confirmed 12/24/21] (unknown) (no (unknown) (unknown) inhalation Q4H (units (unknown) date) PRN shortness of unknown) breath or wheezing #1 ea 11/12/21 [Rx Confirmed (unknown) (no (unknown) (unknown) lives (units (unkno wn) date) independently: unknown) Yes (unknown) (no (unknown) (unknown) losartan 100 mg (units (unknown) date) tablet 100 mg PO unknown) BEDTIME BP #90 tabs 07/24/20 [Rx Confirmed (unknown) (no (unknown) (unknown) marital status: (units (unknown) date) unknown) (unknown) (no (unknown) (unknown) may occur. (units (unk nown) date) Occasional unknown) wrong-word or 'sound-alike' substitutions may have (unknown) (no (unknown) (unknown) metoprolol (units (unk nown) date) tartrate 50 mg unknown) tablet 50 mg PO BID #180 tabs 11/23/21 [Rx Confirmed (unknown) (no (unknown) (unknown) number of (units (unkn own) date) children: 2 unknown) (unknown) (no (unknown) (unknown) occurred due to (units (unknown) date) the inherent unknown) limitations of voice recognition software. Please (unknown) (no (unknown) (unknown) omeprazole 40 mg (units (unknown) date) capsule,delayed unknown) release See Rx Instructions .Route .COMPLEX #90 (unknown) (no (unknown) (unknown) pain #100 grams (units (unknown) date) 08/30/21 [Rx unknown) Confirmed 12/24/21] (unknown) (no (unknown) (unknown) placebo vs (units (unk nown) date) aspirin .Route unknown) 04/11/20 [History Confirmed 12/24/21] (unknown) (no (unknown) (unknown) pt is ok with (units ( unknown) date) student unknown) (unknown) (no (unknown) (unknown) read the note (units ( unknown) date) carefully and unknown) recognize, using context, where these substitutions (unknown) (no (unknown) (unknown) rivaroxaban 20 (units (unknown) date) mg tablet unknown) (Xarelto) 20 mg PO QPM #90 tabs 05/16/20 [Rx Confirmed (unknown) (no (unknown) (unknown) scratching his (units (unknown) date) head a lot. unknown) (unknown) (no (unknown) (unknown) second hand (units (un known) date) exposure: No unknown) (unknown) (no (unknown) (unknown) software. 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 (unknown) (no (unknown) (unknown) substance use (units ( unknown) date) type: does not unknown) use (unknown) (no (unknown) (unknown) tadalafil 10 mg (units (unknown) date) tablet (Cialis) unknown) 10 mg PO PRN PRN Sexual Activity 11/05/19 (unknown) (no (unknown) (unknown) tiotropium (units (unk nown) date) bromide 2.5 unknown) mcg/actuation mist for inhalation (Spiriva Respimat) 2 Result panel 8 (unknown) (no (unknown) (unknown) (no value) (units (unk nown) date) unknown) (unknown) (no (unknown) (unknown) (no value) (units (unk nown) date) unknown) (unknown) (no (unknown) (unknown) (no value) (units (unk nown) date) unknown) (unknown) (no (unknown) (unknown) [facility] (units (unknown) date) Medicine unknown) (unknown) (no (unknown) (unknown) [place] (units ( unknown) date) [id number] unknown) (unknown) (no (unknown) (unknown) Draft (units (unkno wn) date) unknown) (unknown) (no (unknown) (unknown) Family Practice (units (unknown) date) Office Visit unknown) (unknown) (no (unknown) (unknown) (no value) (units (unk nown) date) unknown) (unknown) (no (unknown) (unknown) [phone] (units (unkno wn) date) unknown) (unknown) (no (unknown) (unknown) 12/24/21 (units (unkno wn) date) unknown) (unknown) (no (unknown) (unknown) 12/24/21] (units (unkn own) date) unknown) (unknown) (no (unknown) (unknown) 1 mo f/u (units (unkno wn) date) unknown) (unknown) (no (unknown) (unknown) 2x/week. usually (units (unknown) date) at lunch, not unknown) productive. No chest pain, palpitations, fever, (unknown) (no (unknown) (unknown) Accompanied by: (units (unknown) date) unknown) (unknown) (no (unknown) (unknown) Afib well (units (unkn own) date) controlled, no unknown) new symtpmes. (unknown) (no (unknown) (unknown) Age/Sex: 86 / M (units (unknown) date) Date of Service: unknown) (unknown) (no (unknown) (unknown) Allergies (units (unkn own) date) unknown) (unknown) (no (unknown) (unknown) Anemia (units (unkno wn) date) (08/29/17) unknown) (unknown) (no (unknown) (unknown) Arrhythmia (units (unk nown) date) unknown) (unknown) (no (unknown) (unknown) Atrial (units (unkno wn) date) fibrillation with unknown) rapid ventricular response (05/06/16) (unknown) (no (unknown) (unknown) Attending Dr: (units ( unknown) date) Aditi Saunders MD unknown) (unknown) (no (unknown) (unknown) COPD (chronic (units ( unknown) date) obstructive unknown) pulmonary disease) (unknown) (no (unknown) (unknown) Confirmed (units (unkn own) date) 12/24/21] unknown) (unknown) (no (unknown) (unknown) 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 unknown) (unknown) (no (unknown) (unknown) Documented By: (units (unknown) date) Aditi Saunders MD unknown) 12/24/21 1020 (unknown) (no (unknown) (unknown) Easy (units (unkno wn) date) bruisability unknown) (unknown) (no (unknown) (unknown) Erectile (units (unkno wn) date) dysfunction unknown) (07/24/16) (unknown) (no (unknown) (unknown) Essential (units (unkn own) date) hypertension unknown) (06/03/16) (unknown) (no (unknown) (unknown) Former smoker (units ( unknown) date) unknown) (unknown) (no (unknown) (unknown) GERD (units (unkno wn) date) (gastroesophageal unknown) reflux disease) (unknown) (no (unknown) (unknown) He 3 years ago (units (unknown) date) he weight 195. unknown) (unknown) (no (unknown) (unknown) He has continued (units (unknown) date) to have falls, unknown) 2-3 in the last month. He denies any dizziness, (unknown) (no (unknown) (unknown) He states his (units ( unknown) date) cough is mostly unknown) in the morning and producing flegm. He feels like (unknown) (no (unknown) (unknown) Health (units (unkno wn) date) Management unknown) (unknown) (no (unknown) (unknown) Health (units (unkno wn) date) Management unknown) reviewed with patient: Yes (unknown) (no (unknown) (unknown) Hemorrhagic (units (un known) date) stroke unknown) (unknown) (no (unknown) (unknown) History of (units (unk nown) date) colonoscopy unknown) (unknown) (no (unknown) (unknown) Hx of bilateral (units (unknown) date) cataract unknown) extraction (07/2019) (unknown) (no (unknown) (unknown) Hx of cardiac (units ( unknown) date) cath unknown) (unknown) (no (unknown) (unknown) Hx of heart (units (un known) date) artery stent unknown) (1997) (unknown) (no (unknown) (unknown) Intake (units (unkno wn) date) unknown) (unknown) (no (unknown) (unknown) Intake Note: (units (u nknown) date) unknown) (unknown) (no (unknown) (unknown) Intake performed (units (unknown) date) by: unknown) Tawana Rowan (unknown) (no (unknown) (unknown) Intake- Clincial (units (unknown) date) Staff unknown) (unknown) (no (unknown) (unknown) Jaw fracture (units (u nknown) date) unknown) (unknown) (no (unknown) (unknown) Loc: [facility] (units (unkno wn) date) unknown) (unknown) (no (unknown) (unknown) 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 (07/09/17) (unknown) (no (unknown) (unknown) Medical History (units (unknown) date) (Reviewed unknown) 12/10/21 @ 14:36 by Alexandro English RN) (unknown) (no (unknown) (unknown) Medications (units (un known) date) unknown) (unknown) (no (unknown) (unknown) Myocardial (units (unk nown) date) infarction (1995) unknown) (unknown) (no (unknown) (unknown) No Known Drug (units ( unknown) date) Allergies Allergy unknown) (Verified 12/24/21 10:26) (unknown) (no (unknown) (unknown) 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 (unknown) (no (unknown) (unknown) Note (units (unkno wn) date) unknown) (unknown) (no (unknown) (unknown) Note: (units (unkno wn) date) unknown) (unknown) (no (unknown) (unknown) Notes (units (unkno wn) date) unknown) (unknown) (no (unknown) (unknown) PFSH (units (unkno wn) date) unknown) (unknown) (no (unknown) (unknown) Patient: (units (unkno wn) date) Eb Flores F unknown) MR#: [id number] (unknown) (no (unknown) (unknown) Reason For Visit (units (unknown) date) unknown) (unknown) (no (unknown) (unknown) 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) unknown) (unknown) (no (unknown) (unknown) Signed By: (units (unk nown) date) unknown) (unknown) (no (unknown) (unknown) Smoking Status: (units (unknown) date) Former smoker unknown) (unknown) (no (unknown) (unknown) Social History (units (unknown) date) unknown) (unknown) (no (unknown) (unknown) Surgical History (units (unknown) date) (Reviewed unknown) 12/10/21 @ 14:36 by Alexandro English RN) (unknown) (no (unknown) (unknown) This note may (units ( unknown) date) have been all or unknown) partially generated using voice recognition (unknown) (no (unknown) (unknown) Tobacco + (units (unkn own) date) Substance Use unknown) (unknown) (no (unknown) (unknown) Tobacco Status (units (unknown) date) unknown) (unknown) (no (unknown) (unknown) Visit Reasons: 1 (units (unknown) date) Mo FU unknown) (unknown) (no (unknown) (unknown) [History (units (unkno wn) date) Confirmed unknown) 12/24/21] (unknown) (no (unknown) (unknown) acetaminophen (units ( unknown) date) 500 mg capsule unknown) 500 mg PO Q6H PRN Pain 03/24/18 [History Confirmed (unknown) (no (unknown) (unknown) albuterol (units (unkn own) date) sulfate 90 unknown) mcg/actuation breath activated powder inhaler 2 inh (unknown) (no (unknown) (unknown) alcohol intake: (units (unknown) date) current unknown) (unknown) (no (unknown) (unknown) an dis going to (units (unknown) date) PT. ask about unknown) getting appt for ear wax removal out. (unknown) (no (unknown) (unknown) angina pectoris (units (unknown) date) (06/03/16) unknown) (unknown) (no (unknown) (unknown) atorvastatin 20 (units (unknown) date) mg tablet 20 mg unknown) PO BEDTIME #90 tabs 04/25/21 [Rx Confirmed (unknown) (no (unknown) (unknown) caps 08/28/21 (units ( unknown) date) [Rx Confirmed unknown) 12/24/21] (unknown) (no (unknown) (unknown) caregiver/suppor (units (unknown) date) t person: No unknown) (unknown) (no (unknown) (unknown) chills, sob. (units (u nknown) date) unknown) (unknown) (no (unknown) (unknown) diclofenac (units (unk nown) date) sodium 1 % unknown) topical gel (Voltaren Arthritis Pain) 4 g topical QID PRN (unknown) (no (unknown) (unknown) diclofenac (units (unk nown) date) sodium 1 % unknown) topical gel 2 g topical QID #100 grams 08/07/20 [Rx (unknown) (no (unknown) (unknown) fluoxetine 20 mg (units (unknown) date) capsule 20 mg PO unknown) DAILY #90 caps 06/26/21 [Rx Confirmed (unknown) (no (unknown) (unknown) have occurred. (units (unknown) date) If there are any unknown) questions, please contact the Medical Records (unknown) (no (unknown) (unknown) he is choking (units ( unknown) date) when eating. . He unknown) states the albuterol is hepping, he uses it 1- (unknown) (no (unknown) (unknown) headaches, light (units (unknown) date) headedness or unknown) near syncopy. He does endorse some balance issues (unknown) (no (unknown) (unknown) household (units (unkn own) date) members: spouse unknown) (unknown) (no (unknown) (unknown) housing: house (units (unknown) date) unknown) (unknown) (no (unknown) (unknown) inh inhalation (units (unknown) date) QAM #12 grams unknown) 12/12/21 [Rx Confirmed 12/24/21] (unknown) (no (unknown) (unknown) inhalation Q4H (units (unknown) date) PRN shortness of unknown) breath or wheezing #1 ea 11/12/21 [Rx Confirmed (unknown) (no (unknown) (unknown) lives (units (unkno wn) date) independently: unknown) Yes (unknown) (no (unknown) (unknown) losartan 100 mg (units (unknown) date) tablet 100 mg PO unknown) BEDTIME BP #90 tabs 07/24/20 [Rx Confirmed (unknown) (no (unknown) (unknown) marital status: (units (unknown) date) unknown) (unknown) (no (unknown) (unknown) may occur. (units (unk nown) date) Occasional unknown) wrong-word or 'sound-alike' substitutions may have (unknown) (no (unknown) (unknown) metoprolol (units (unk nown) date) tartrate 50 mg unknown) tablet 50 mg PO BID #180 tabs 11/23/21 [Rx Confirmed (unknown) (no (unknown) (unknown) number of (units (unkn own) date) children: 2 unknown) (unknown) (no (unknown) (unknown) occurred due to (units (unknown) date) the inherent unknown) limitations of voice recognition software. Please (unknown) (no (unknown) (unknown) omeprazole 40 mg (units (unknown) date) capsule,delayed unknown) release See Rx Instructions .Route .COMPLEX #90 (unknown) (no (unknown) (unknown) pain #100 grams (units (unknown) date) 08/30/21 [Rx unknown) Confirmed 12/24/21] (unknown) (no (unknown) (unknown) placebo vs (units (unk nown) date) aspirin .Route unknown) 04/11/20 [History Confirmed 12/24/21] (unknown) (no (unknown) (unknown) pt is ok with (units ( unknown) date) student unknown) (unknown) (no (unknown) (unknown) read the note (units ( unknown) date) carefully and unknown) recognize, using context, where these substitutions (unknown) (no (unknown) (unknown) rivaroxaban 20 (units (unknown) date) mg tablet unknown) (Xarelto) 20 mg PO QPM #90 tabs 05/16/20 [Rx Confirmed (unknown) (no (unknown) (unknown) scratching his (units (unknown) date) head a lot. unknown) (unknown) (no (unknown) (unknown) second hand (units (un known) date) exposure: No unknown) (unknown) (no (unknown) (unknown) software. 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 (unknown) (no (unknown) (unknown) substance use (units ( unknown) date) type: does not unknown) use (unknown) (no (unknown) (unknown) tadalafil 10 mg (units (unknown) date) tablet (Cialis) unknown) 10 mg PO PRN PRN Sexual Activity 11/05/19 (unknown) (no (unknown) (unknown) tiotropium (units (unk nown) date) bromide 2.5 unknown) mcg/actuation mist for inhalation (Spiriva Respimat) 2 Result panel 9 (unknown) (no (unknown) (unknown) (no value) (units (unk nown) date) unknown) (unknown) (no (unknown) (unknown) (no value) (units (unk nown) date) unknown) (unknown) (no (unknown) (unknown) (no value) (units (unk nown) date) unknown) (unknown) (no (unknown) (unknown) [facility] (units (unknown) date) Medicine unknown) (unknown) (no (unknown) (unknown) [place] (units ( unknown) date) [id number] unknown) (unknown) (no (unknown) (unknown) Draft (units (unkno wn) date) unknown) (unknown) (no (unknown) (unknown) Family Practice (units (unknown) date) Office Visit unknown) (unknown) (no (unknown) (unknown) (no value) (units (unk nown) date) unknown) (unknown) (no (unknown) (unknown) [phone] (units (unkno wn) date) unknown) (unknown) (no (unknown) (unknown) 12/24/21 (units (unkno wn) date) unknown) (unknown) (no (unknown) (unknown) 12/24/21] (units (unkn own) date) unknown) (unknown) (no (unknown) (unknown) 1 mo f/u (units (unkno wn) date) unknown) (unknown) (no (unknown) (unknown) Accompanied by: (units (unknown) date) unknown) (unknown) (no (unknown) (unknown) Afib well (units (unkn own) date) controlled, no unknown) new symtpmes. (unknown) (no (unknown) (unknown) Age/Sex: 86 / M (units (unknown) date) Date of Service: unknown) (unknown) (no (unknown) (unknown) Allergies (units (unkn own) date) unknown) (unknown) (no (unknown) (unknown) Anemia (units (unkno wn) date) (08/29/17) unknown) (unknown) (no (unknown) (unknown) Arrhythmia (units (unk nown) date) unknown) (unknown) (no (unknown) (unknown) Atrial (units (unkno wn) date) fibrillation with unknown) rapid ventricular response (05/06/16) (unknown) (no (unknown) (unknown) Attending Dr: (units ( unknown) date) Aditi Saunders MD unknown) (unknown) (no (unknown) (unknown) COPD (chronic (units ( unknown) date) obstructive unknown) pulmonary disease) (unknown) (no (unknown) (unknown) Confirmed (units (unkn own) date) 12/24/21] unknown) (unknown) (no (unknown) (unknown) Coronary artery (units (unknown) date) disease involving unknown) coronary bypass graft of q[place] heart without (unknown) (no (unknown) (unknown) : 1935 (units (unknown) date) Acct:[id number] unknown) (unknown) (no (unknown) (unknown) Eb is an 86 (units (unknown) date) year old male unknown) here for follow up. (unknown) (no (unknown) (unknown) Dept at (units (unkno wn) date) . unknown) (unknown) (no (unknown) (unknown) Documented By: (units (unknown) date) Aditi Saunders MD unknown) 12/24/21 1020 (unknown) (no (unknown) (unknown) Easy (units (unkno wn) date) bruisability unknown) (unknown) (no (unknown) (unknown) Erectile (units (unkno wn) date) dysfunction unknown) (07/24/16) (unknown) (no (unknown) (unknown) Essential (units (unkn own) date) hypertension unknown) (06/03/16) (unknown) (no (unknown) (unknown) Former smoker (units ( unknown) date) unknown) (unknown) (no (unknown) (unknown) GERD (units (unkno wn) date) (gastroesophageal unknown) reflux disease) (unknown) (no (unknown) (unknown) He 3 years ago (units (unknown) date) he weight 195. unknown) (unknown) (no (unknown) (unknown) He has continued (units (unknown) date) to have falls, unknown) 2-3 in the last month. He denies any dizziness, (unknown) (no (unknown) (unknown) He states his (units ( unknown) date) cough is mostly unknown) in the morning and producing flegm. He feels like (unknown) (no (unknown) (unknown) He states the (units ( unknown) date) albuterol is unknown) hepping, he uses it 1-2x/week. usually at lunch, not (unknown) (no (unknown) (unknown) Health (units (unkno wn) date) Management unknown) (unknown) (no (unknown) (unknown) Health (units (unkno wn) date) Management unknown) reviewed with patient: Yes (unknown) (no (unknown) (unknown) Hemorrhagic (units (un known) date) stroke unknown) (unknown) (no (unknown) (unknown) History of (units (unk nown) date) colonoscopy unknown) (unknown) (no (unknown) (unknown) Hx of bilateral (units (unknown) date) cataract unknown) extraction (07/2019) (unknown) (no (unknown) (unknown) Hx of cardiac (units ( unknown) date) cath unknown) (unknown) (no (unknown) (unknown) Hx of heart (units (un known) date) artery stent unknown) (1997) (unknown) (no (unknown) (unknown) Intake (units (unkno wn) date) unknown) (unknown) (no (unknown) (unknown) Intake Note: (units (u nknown) date) unknown) (unknown) (no (unknown) (unknown) Intake performed (units (unknown) date) by: unknown) Tawana Rowan (unknown) (no (unknown) (unknown) Intake- Clincial (units (unknown) date) Staff unknown) (unknown) (no (unknown) (unknown) Jaw fracture (units (u nknown) date) unknown) (unknown) (no (unknown) (unknown) Loc: [facility] (units (unkno wn) date) unknown) (unknown) (no (unknown) (unknown) 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 (07/09/17) (unknown) (no (unknown) (unknown) Medical History (units (unknown) date) (Reviewed unknown) 12/10/21 @ 14:36 by Alexandro English RN) (unknown) (no (unknown) (unknown) Medications (units (un known) date) unknown) (unknown) (no (unknown) (unknown) Myocardial (units (unk nown) date) infarction (1995) unknown) (unknown) (no (unknown) (unknown) No Known Drug (units ( unknown) date) Allergies Allergy unknown) (Verified 12/24/21 10:26) (unknown) (no (unknown) (unknown) 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 (unknown) (no (unknown) (unknown) Note (units (unkno wn) date) unknown) (unknown) (no (unknown) (unknown) Note: (units (unkno wn) date) unknown) (unknown) (no (unknown) (unknown) Notes (units (unkno wn) date) unknown) (unknown) (no (unknown) (unknown) PFSH (units (unkno wn) date) unknown) (unknown) (no (unknown) (unknown) Patient: (units (unkno wn) date) Eb Flores unknown) MR#: [id number] (unknown) (no (unknown) (unknown) Reason For Visit (units (unknown) date) unknown) (unknown) (no (unknown) (unknown) 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) unknown) (unknown) (no (unknown) (unknown) Signed By: (units (unk nown) date) unknown) (unknown) (no (unknown) (unknown) Smoking Status: (units (unknown) date) Former smoker unknown) (unknown) (no (unknown) (unknown) Social History (units (unknown) date) unknown) (unknown) (no (unknown) (unknown) Surgical History (units (unknown) date) (Reviewed unknown) 12/10/21 @ 14:36 by Alexandro English RN) (unknown) (no (unknown) (unknown) This note may (units ( unknown) date) have been all or unknown) partially generated using voice recognition (unknown) (no (unknown) (unknown) Tobacco + (units (unkn own) date) Substance Use unknown) (unknown) (no (unknown) (unknown) Tobacco Status (units (unknown) date) unknown) (unknown) (no (unknown) (unknown) Visit Reasons: 1 (units (unknown) date) Mo FU unknown) (unknown) (no (unknown) (unknown) [History (units (unkno wn) date) Confirmed unknown) 12/24/21] (unknown) (no (unknown) (unknown) acetaminophen (units ( unknown) date) 500 mg capsule unknown) 500 mg PO Q6H PRN Pain 03/24/18 [History Confirmed (unknown) (no (unknown) (unknown) albuterol (units (unkn own) date) sulfate 90 unknown) mcg/actuation breath activated powder inhaler 2 inh (unknown) (no (unknown) (unknown) alcohol intake: (units (unknown) date) current unknown) (unknown) (no (unknown) (unknown) an dis going to (units (unknown) date) PT. ask about unknown) getting appt for ear wax removal out. (unknown) (no (unknown) (unknown) angina pectoris (units (unknown) date) (06/03/16) unknown) (unknown) (no (unknown) (unknown) atorvastatin 20 (units (unknown) date) mg tablet 20 mg unknown) PO BEDTIME #90 tabs 04/25/21 [Rx Confirmed (unknown) (no (unknown) (unknown) caps 08/28/21 (units ( unknown) date) [Rx Confirmed unknown) 12/24/21] (unknown) (no (unknown) (unknown) caregiver/suppor (units (unknown) date) t person: No unknown) (unknown) (no (unknown) (unknown) diclofenac (units (unk nown) date) sodium 1 % unknown) topical gel (Voltaren Arthritis Pain) 4 g topical QID PRN (unknown) (no (unknown) (unknown) diclofenac (units (unk nown) date) sodium 1 % unknown) topical gel 2 g topical QID #100 grams 08/07/20 [Rx (unknown) (no (unknown) (unknown) fluoxetine 20 mg (units (unknown) date) capsule 20 mg PO unknown) DAILY #90 caps 06/26/21 [Rx Confirmed (unknown) (no (unknown) (unknown) have occurred. (units (unknown) date) If there are any unknown) questions, please contact the Medical Records (unknown) (no (unknown) (unknown) he is choking (units ( unknown) date) when eating. He unknown) states that it 'Feels like he is trying to cough (unknown) (no (unknown) (unknown) headaches, light (units (unknown) date) headedness or unknown) near syncopy. He does endorse some balance issues (unknown) (no (unknown) (unknown) household (units (unkn own) date) members: spouse unknown) (unknown) (no (unknown) (unknown) housing: house (units (unknown) date) unknown) (unknown) (no (unknown) (unknown) inh inhalation (units (unknown) date) QAM #12 grams unknown) 12/12/21 [Rx Confirmed 12/24/21] (unknown) (no (unknown) (unknown) inhalation Q4H (units (unknown) date) PRN shortness of unknown) breath or wheezing #1 ea 11/12/21 [Rx Confirmed (unknown) (no (unknown) (unknown) lives (units (unkno wn) date) independently: unknown) Yes (unknown) (no (unknown) (unknown) losartan 100 mg (units (unknown) date) tablet 100 mg PO unknown) BEDTIME BP #90 tabs 07/24/20 [Rx Confirmed (unknown) (no (unknown) (unknown) marital status: (units (unknown) date) unknown) (unknown) (no (unknown) (unknown) may occur. (units (unk nown) date) Occasional unknown) wrong-word or 'sound-alike' substitutions may have (unknown) (no (unknown) (unknown) metoprolol (units (unk nown) date) tartrate 50 mg unknown) tablet 50 mg PO BID #180 tabs 11/23/21 [Rx Confirmed (unknown) (no (unknown) (unknown) number of (units (unkn own) date) children: 2 unknown) (unknown) (no (unknown) (unknown) occurred due to (units (unknown) date) the inherent unknown) limitations of voice recognition software. Please (unknown) (no (unknown) (unknown) omeprazole 40 mg (units (unknown) date) capsule,delayed unknown) release See Rx Instructions .Route .COMPLEX #90 (unknown) (no (unknown) (unknown) pain #100 grams (units (unknown) date) 08/30/21 [Rx unknown) Confirmed 12/24/21] (unknown) (no (unknown) (unknown) placebo vs (units (unk nown) date) aspirin .Route unknown) 04/11/20 [History Confirmed 12/24/21] (unknown) (no (unknown) (unknown) productive. No (units (unknown) date) chest pain, unknown) palpitations, fever, chills, sob. (unknown) (no (unknown) (unknown) pt is ok with (units ( unknown) date) student unknown) (unknown) (no (unknown) (unknown) read the note (units ( unknown) date) carefully and unknown) recognize, using context, where these substitutions (unknown) (no (unknown) (unknown) rivaroxaban 20 (units (unknown) date) mg tablet unknown) (Xarelto) 20 mg PO QPM #90 tabs 05/16/20 [Rx Confirmed (unknown) (no (unknown) (unknown) scratching his (units (unknown) date) head a lot. unknown) (unknown) (no (unknown) (unknown) second hand (units (un known) date) exposure: No unknown) (unknown) (no (unknown) (unknown) software. 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 He raffaele any difference in his eating . (unknown) (no (unknown) (unknown) substance use (units ( unknown) date) type: does not unknown) use (unknown) (no (unknown) (unknown) tadalafil 10 mg (units (unknown) date) tablet (Cialis) unknown) 10 mg PO PRN PRN Sexual Activity 11/05/19 (unknown) (no (unknown) (unknown) tiotropium (units (unk nown) date) bromide 2.5 unknown) mcg/actuation mist for inhalation (Spiriva Respimat) 2 Result panel 10 (unknown) (no (unknown) (unknown) (no value) (units (unk nown) date) unknown) (unknown) (no (unknown) (unknown) (no value) (units (unk nown) date) unknown) (unknown) (no (unknown) (unknown) (no value) (units (unk nown) date) unknown) (unknown) (no (unknown) (unknown) [facility] (units (unknown) date) Medicine unknown) (unknown) (no (unknown) (unknown) [place] (units ( unknown) date) [id number] unknown) (unknown) (no (unknown) (unknown) Draft (units (unkno wn) date) unknown) (unknown) (no (unknown) (unknown) Family Practice (units (unknown) date) Office Visit unknown) (unknown) (no (unknown) (unknown) (no value) (units (unk nown) date) unknown) (unknown) (no (unknown) (unknown) [id number] (units (unkno wn) date) unknown) (unknown) (no (unknown) (unknown) 12/24/21 (units (unkno wn) date) unknown) (unknown) (no (unknown) (unknown) 12/24/21] (units (unkn own) date) unknown) (unknown) (no (unknown) (unknown) 1 mo f/u (units (unkno wn) date) unknown) (unknown) (no (unknown) (unknown) Accompanied by: (units (unknown) date) unknown) (unknown) (no (unknown) (unknown) Afib well (units (unkn own) date) controlled, no unknown) new symtpmes. (unknown) (no (unknown) (unknown) Age/Sex: 86 / M (units (unknown) date) Date of Service: unknown) (unknown) (no (unknown) (unknown) Allergies (units (unkn own) date) unknown) (unknown) (no (unknown) (unknown) Anemia (units (unkno wn) date) (08/29/17) unknown) (unknown) (no (unknown) (unknown) Arrhythmia (units (unk nown) date) unknown) (unknown) (no (unknown) (unknown) Atrial (units (unkno wn) date) fibrillation with unknown) rapid ventricular response (05/06/16) (unknown) (no (unknown) (unknown) Attending Dr: (units ( unknown) date) Aditi Saunders MD unknown) (unknown) (no (unknown) (unknown) Boost (units (unkno wn) date) intermittently. unknown) (unknown) (no (unknown) (unknown) COPD (chronic (units ( unknown) date) obstructive unknown) pulmonary disease) (unknown) (no (unknown) (unknown) Confirmed (units (unkn own) date) 12/24/21] unknown) (unknown) (no (unknown) (unknown) Coronary artery (units (unknown) date) disease involving unknown) coronary bypass graft of qawalangin heart without (unknown) (no (unknown) (unknown) : 1935 (units (unknown) date) Acct:[id number] unknown) (unknown) (no (unknown) (unknown) Eb is an 86 (units (unknown) date) year old male unknown) here for follow up. (unknown) (no (unknown) (unknown) Dept at (units (unkno wn) date) . unknown) (unknown) (no (unknown) (unknown) Documented By: (units (unknown) date) Aditi Saunders MD unknown) 12/24/21 1020 (unknown) (no (unknown) (unknown) Easy (units (unkno wn) date) bruisability unknown) (unknown) (no (unknown) (unknown) Erectile (units (unkno wn) date) dysfunction unknown) (07/24/16) (unknown) (no (unknown) (unknown) Essential (units (unkn own) date) hypertension unknown) (06/03/16) (unknown) (no (unknown) (unknown) Former smoker (units ( unknown) date) unknown) (unknown) (no (unknown) (unknown) GERD (units (unkno wn) date) (gastroesophageal unknown) reflux disease) (unknown) (no (unknown) (unknown) He has continued (units (unknown) date) to have falls, unknown) 2-3 in the last month. He denies any dizziness, (unknown) (no (unknown) (unknown) He is also (units (unk nown) date) concerned about unknown) his 3 years ago he weight 195. He has been drinking (unknown) (no (unknown) (unknown) He sleeps 16-17 (units (unknown) date) hours/day. He unknown) states he is still doing the activities he enjoys, (unknown) (no (unknown) (unknown) He states his (units ( unknown) date) cough has unknown) slightly improved. He has a productive cough in the (unknown) (no (unknown) (unknown) Health (units (unkno wn) date) Management unknown) (unknown) (no (unknown) (unknown) Health (units (unkno wn) date) Management unknown) reviewed with patient: Yes (unknown) (no (unknown) (unknown) Hemorrhagic (units (un known) date) stroke unknown) (unknown) (no (unknown) (unknown) History of (units (unk nown) date) colonoscopy unknown) (unknown) (no (unknown) (unknown) Hx of bilateral (units (unknown) date) cataract unknown) extraction (07/2019) (unknown) (no (unknown) (unknown) Hx of cardiac (units ( unknown) date) cath unknown) (unknown) (no (unknown) (unknown) Hx of heart (units (un known) date) artery stent unknown) (1997) (unknown) (no (unknown) (unknown) Intake (units (unkno wn) date) unknown) (unknown) (no (unknown) (unknown) Intake Note: (units (u nknown) date) unknown) (unknown) (no (unknown) (unknown) Intake performed (units (unknown) date) by: unknown) Tawana Rowan (unknown) (no (unknown) (unknown) Intake- Clincial (units (unknown) date) Staff unknown) (unknown) (no (unknown) (unknown) Jaw fracture (units (u nknown) date) unknown) (unknown) (no (unknown) (unknown) Loc: [facility] (units (unkno wn) date) unknown) (unknown) (no (unknown) (unknown) 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 (07/09/17) (unknown) (no (unknown) (unknown) Medical History (units (unknown) date) (Reviewed unknown) 12/10/21 @ 14:36 by Alexandro English RN) (unknown) (no (unknown) (unknown) Medications (units (un known) date) unknown) (unknown) (no (unknown) (unknown) Myocardial (units (unk nown) date) infarction (1995) unknown) (unknown) (no (unknown) (unknown) No Known Drug (units ( unknown) date) Allergies Allergy unknown) (Verified 12/24/21 10:26) (unknown) (no (unknown) (unknown) 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 (unknown) (no (unknown) (unknown) Note (units (unkno wn) date) unknown) (unknown) (no (unknown) (unknown) Note: (units (unkno wn) date) unknown) (unknown) (no (unknown) (unknown) Notes (units (unkno wn) date) unknown) (unknown) (no (unknown) (unknown) PFSH (units (unkno wn) date) unknown) (unknown) (no (unknown) (unknown) Patient: (units (unkno wn) date) Eb Flores unknown) MR#: [id number] (unknown) (no (unknown) (unknown) Reason For Visit (units (unknown) date) unknown) (unknown) (no (unknown) (unknown) 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) unknown) (unknown) (no (unknown) (unknown) Signed By: (units (unk nown) date) unknown) (unknown) (no (unknown) (unknown) Smoking Status: (units (unknown) date) Former smoker unknown) (unknown) (no (unknown) (unknown) Social History (units (unknown) date) unknown) (unknown) (no (unknown) (unknown) Surgical History (units (unknown) date) (Reviewed unknown) 12/10/21 @ 14:36 by Alexandro English RN) (unknown) (no (unknown) (unknown) This note may (units ( unknown) date) have been all or unknown) partially generated using voice recognition (unknown) (no (unknown) (unknown) Tobacco + (units (unkn own) date) Substance Use unknown) (unknown) (no (unknown) (unknown) Tobacco Status (units (unknown) date) unknown) (unknown) (no (unknown) (unknown) Visit Reasons: 1 (units (unknown) date) Mo FU unknown) (unknown) (no (unknown) (unknown) [History (units (unkno wn) date) Confirmed unknown) 12/24/21] (unknown) (no (unknown) (unknown) acetaminophen (units ( unknown) date) 500 mg capsule unknown) 500 mg PO Q6H PRN Pain 03/24/18 [History Confirmed (unknown) (no (unknown) (unknown) albuterol is (units (un known) date) hepping, he uses unknown) it 1-2x/week. usually at lunch, not productive. No (unknown) (no (unknown) (unknown) albuterol (units (unkn own) date) sulfate 90 unknown) mcg/actuation breath activated powder inhaler 2 inh (unknown) (no (unknown) (unknown) alcohol intake: (units (unknown) date) current unknown) (unknown) (no (unknown) (unknown) an dis going to (units (unknown) date) PT. ask about unknown) getting appt for ear wax removal out. (unknown) (no (unknown) (unknown) angina pectoris (units (unknown) date) (06/03/16) unknown) (unknown) (no (unknown) (unknown) atorvastatin 20 (units (unknown) date) mg tablet 20 mg unknown) PO BEDTIME #90 tabs 04/25/21 [Rx Confirmed (unknown) (no (unknown) (unknown) caps 08/28/21 (units ( unknown) date) [Rx Confirmed unknown) 12/24/21] (unknown) (no (unknown) (unknown) caregiver/suppor (units (unknown) date) t person: No unknown) (unknown) (no (unknown) (unknown) chest pain, (units (un known) date) palpitations, unknown) fever, chills, sob. (unknown) (no (unknown) (unknown) diclofenac (units (unk nown) date) sodium 1 % unknown) topical gel (Voltaren Arthritis Pain) 4 g topical QID PRN (unknown) (no (unknown) (unknown) diclofenac (units (unk nown) date) sodium 1 % unknown) topical gel 2 g topical QID #100 grams 08/07/20 [Rx (unknown) (no (unknown) (unknown) eating. He (units (unk nown) date) states that it unknown) 'Feels like he is trying to cough something up,' most (unknown) (no (unknown) (unknown) fluoxetine 20 mg (units (unknown) date) capsule 20 mg PO unknown) DAILY #90 caps 06/26/21 [Rx Confirmed (unknown) (no (unknown) (unknown) have occurred. (units (unknown) date) If there are any unknown) questions, please contact the Medical Records (unknown) (no (unknown) (unknown) headaches, light (units (unknown) date) headedness or unknown) near syncopy. He does endorse some balance issues (unknown) (no (unknown) (unknown) household (units (unkn own) date) members: spouse unknown) (unknown) (no (unknown) (unknown) housing: house (units (unknown) date) unknown) (unknown) (no (unknown) (unknown) inh inhalation (units (unknown) date) QAM #12 grams unknown) 12/12/21 [Rx Confirmed 12/24/21] (unknown) (no (unknown) (unknown) inhalation Q4H (units (unknown) date) PRN shortness of unknown) breath or wheezing #1 ea 11/12/21 [Rx Confirmed (unknown) (no (unknown) (unknown) is mostly in the (units (unknown) date) morning and unknown) producing flegm. He feels like he is choking when (unknown) (no (unknown) (unknown) like gathering (units (unknown) date) crab and clam. unknown) (unknown) (no (unknown) (unknown) lives (units (unkno wn) date) independently: unknown) Yes (unknown) (no (unknown) (unknown) losartan 100 mg (units (unknown) date) tablet 100 mg PO unknown) BEDTIME BP #90 tabs 07/24/20 [Rx Confirmed (unknown) (no (unknown) (unknown) marital status: (units (unknown) date) unknown) (unknown) (no (unknown) (unknown) may occur. (units (unk nown) date) Occasional unknown) wrong-word or 'sound-alike' substitutions may have (unknown) (no (unknown) (unknown) metoprolol (units (unk nown) date) tartrate 50 mg unknown) tablet 50 mg PO BID #180 tabs 11/23/21 [Rx Confirmed (unknown) (no (unknown) (unknown) morning (units (unkno wn) date) unknown) (unknown) (no (unknown) (unknown) number of (units (unkn own) date) children: 2 unknown) (unknown) (no (unknown) (unknown) occurred due to (units (unknown) date) the inherent unknown) limitations of voice recognition software. Please (unknown) (no (unknown) (unknown) often during (units (u nknown) date) lunch. He raffaele unknown) any difference in his eating . He states the (unknown) (no (unknown) (unknown) omeprazole 40 mg (units (unknown) date) capsule,delayed unknown) release See Rx Instructions .Route .COMPLEX #90 (unknown) (no (unknown) (unknown) pain #100 grams (units (unknown) date) 08/30/21 [Rx unknown) Confirmed 12/24/21] (unknown) (no (unknown) (unknown) placebo vs (units (unk nown) date) aspirin .Route unknown) 04/11/20 [History Confirmed 12/24/21] (unknown) (no (unknown) (unknown) pt is ok with (units ( unknown) date) student unknown) (unknown) (no (unknown) (unknown) read the note (units ( unknown) date) carefully and unknown) recognize, using context, where these substitutions (unknown) (no (unknown) (unknown) rivaroxaban 20 (units (unknown) date) mg tablet unknown) (Xarelto) 20 mg PO QPM #90 tabs 05/16/20 [Rx Confirmed (unknown) (no (unknown) (unknown) second hand (units (un known) date) exposure: No unknown) (unknown) (no (unknown) (unknown) software. 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 (unknown) (no (unknown) (unknown) substance use (units ( unknown) date) type: does not unknown) use (unknown) (no (unknown) (unknown) tadalafil 10 mg (units (unknown) date) tablet (Cialis) unknown) 10 mg PO PRN PRN Sexual Activity 11/05/19 (unknown) (no (unknown) (unknown) tiotropium (units (unk nown) date) bromide 2.5 unknown) mcg/actuation mist for inhalation (Spiriva Respimat) 2 Result panel 11 (unknown) (no (unknown) (unknown) (no value) (units (unk nown) date) unknown) (unknown) (no (unknown) (unknown) Assessment and (units (unknown) date) Plan: unknown) (unknown) (no (unknown) (unknown) Qualifiers: (units (un known) date) unknown) (unknown) (no (unknown) (unknown) Status: Acute (units ( unknown) date) unknown) (unknown) (no (unknown) (unknown) (no value) (units (unk nown) date) unknown) (unknown) (no (unknown) (unknown) (no value) (units (unk nown) date) unknown) (unknown) (no (unknown) (unknown) [facility] (units (unknown) date) Medicine unknown) (unknown) (no (unknown) (unknown) [place] (units ( unknown) date) [id number] unknown) (unknown) (no (unknown) (unknown) COPD type: (units (unk nown) date) unspecified COPD unknown) Qualified Code(s): J44.9 - Chronic (unknown) (no (unknown) (unknown) Draft (units (unkno wn) date) unknown) (unknown) (no (unknown) (unknown) Family Practice (units (unknown) date) Office Visit unknown) (unknown) (no (unknown) (unknown) (no value) (units (unk nown) date) unknown) (unknown) (no (unknown) (unknown) (1) COPD (units (unkno wn) date) (chronic unknown) obstructive pulmonary disease): (unknown) (no (unknown) (unknown) (2) Frequent (units (u nknown) date) falls: unknown) (unknown) (no (unknown) (unknown) (3) Weight loss: (units (unknown) date) unknown) (unknown) (no (unknown) (unknown) [id number] (units (unkno wn) date) unknown) (unknown) (no (unknown) (unknown) 12/24/21 (units (unkno wn) date) unknown) (unknown) (no (unknown) (unknown) 12/24/21] (units (unkn own) date) unknown) (unknown) (no (unknown) (unknown) 1 mo f/u (units (unkno wn) date) unknown) (unknown) (no (unknown) (unknown) Accompanied by: (units (unknown) date) unknown) (unknown) (no (unknown) (unknown) Age/Sex: 86 / M (units (unknown) date) Date of Service: unknown) (unknown) (no (unknown) (unknown) All systems (units (un known) date) reviewed + are unknown) unremarkable except as noted in HPI and below (unknown) (no (unknown) (unknown) Allergies (units (unkn own) date) unknown) (unknown) (no (unknown) (unknown) Anemia (units (unkno wn) date) (08/29/17) unknown) (unknown) (no (unknown) (unknown) Arrhythmia (units (unk nown) date) unknown) (unknown) (no (unknown) (unknown) Assessment + (units (u nknown) date) Plan unknown) (unknown) (no (unknown) (unknown) Atrial (units (unkno wn) date) fibrillation is unknown) well controlled, no new symptoms. (unknown) (no (unknown) (unknown) Atrial (units (unkno wn) date) fibrillation with unknown) rapid ventricular response (05/06/16) (unknown) (no (unknown) (unknown) Attending Dr: (units ( unknown) date) Aditi Saunders MD unknown) (unknown) (no (unknown) (unknown) Auscultation: (units ( unknown) date) clear to unknown) auscultation bilaterally (unknown) (no (unknown) (unknown) COPD (chronic (units ( unknown) date) obstructive unknown) pulmonary disease) (unknown) (no (unknown) (unknown) Cardio (units (unkno wn) date) unknown) (unknown) (no (unknown) (unknown) Chief Complaint (units (unknown) date) unknown) (unknown) (no (unknown) (unknown) Chief Complaint: (units (unknown) date) Follow up unknown) (unknown) (no (unknown) (unknown) Confirmed (units (unkn own) date) 12/24/21] unknown) (unknown) (no (unknown) (unknown) Const (units (unkno wn) date) unknown) (unknown) (no (unknown) (unknown) 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 unknown) (unknown) (no (unknown) (unknown) Details: (units (unkno wn) date) unknown) (unknown) (no (unknown) (unknown) Discussed doing a (units (unknown) date) CXR today for unknown) recent frequent coughing. He agrees to the plan. (unknown) (no (unknown) (unknown) Documented By: (units (unknown) date) Aditi Saunders MD unknown) 12/24/21 1020 (unknown) (no (unknown) (unknown) Easy (units (unkno wn) date) bruisability unknown) (unknown) (no (unknown) (unknown) Effort + (units (unkno wn) date) Inspection: unknown) normal respiratory effort and able to speak in complete (unknown) (no (unknown) (unknown) Erectile (units (unkno wn) date) dysfunction unknown) (07/24/16) (unknown) (no (unknown) (unknown) Essential (units (unkn own) date) hypertension unknown) (06/03/16) (unknown) (no (unknown) (unknown) Exam (units (unkno wn) date) unknown) (unknown) (no (unknown) (unknown) Eyes (units (unkno wn) date) unknown) (unknown) (no (unknown) (unknown) Former smoker (units ( unknown) date) unknown) (unknown) (no (unknown) (unknown) GERD (units (unkno wn) date) (gastroesophageal unknown) reflux disease) (unknown) (no (unknown) (unknown) General: (units (unkno wn) date) appearance unknown) normal, both eyes and all related structures (unknown) (no (unknown) (unknown) General: (units (unkno wn) date) cooperative, no unknown) acute distress and well groomed (unknown) (no (unknown) (unknown) HPI (units (unkno wn) date) unknown) (unknown) (no (unknown) (unknown) He has continued (units (unknown) date) to have falls, unknown) 2-3 in the last month. He denies any dizziness, (unknown) (no (unknown) (unknown) He has had a (units (u nknown) date) 10-20 lb weight unknown) loss in the last year. Given his other symptoms of (unknown) (no (unknown) (unknown) He is also (units (unkn own) date) concerned about unknown) his weight loss over the past 3 years. He states that (unknown) (no (unknown) (unknown) He is tolerating (units (unknown) date) Spiriva well. He unknown) did try his 's albuterol the other day (unknown) (no (unknown) (unknown) He sleeps 16-17 (units (unknown) date) hours/day. He unknown) denies any changes in his mood. He states he is (unknown) (no (unknown) (unknown) He states his (units ( unknown) date) cough has unknown) slightly improved. He has a productive cough in the (unknown) (no (unknown) (unknown) Health (units (unkno wn) date) Management unknown) (unknown) (no (unknown) (unknown) Health (units (unkno wn) date) Management unknown) reviewed with patient: Yes (unknown) (no (unknown) (unknown) Heart Sounds: S1 (units (unknown) date) normal, S2 unknown) normal, no gallops, no murmurs and no rubs (unknown) (no (unknown) (unknown) Hemorrhagic (units (un known) date) stroke unknown) (unknown) (no (unknown) (unknown) His falls do (units (u nknown) date) appear to be unknown) mechanical. We discussed slowing down and taking the (unknown) (no (unknown) (unknown) His does (units ( unknown) date) note he eats in a unknown) 'slumped over' position. He has not had any (unknown) (no (unknown) (unknown) History of (units (unk nown) date) colonoscopy unknown) (unknown) (no (unknown) (unknown) Hx of bilateral (units (unknown) date) cataract unknown) extraction (07/2019) (unknown) (no (unknown) (unknown) Hx of cardiac (units ( unknown) date) cath unknown) (unknown) (no (unknown) (unknown) Hx of heart (units (un known) date) artery stent unknown) (1997) (unknown) (no (unknown) (unknown) Intake (units (unkno wn) date) unknown) (unknown) (no (unknown) (unknown) Intake Note: (units (u nknown) date) unknown) (unknown) (no (unknown) (unknown) Intake performed (units (unknown) date) by: unknown) Tawana Rowan (unknown) (no (unknown) (unknown) Intake- Clincial (units (unknown) date) Staff unknown) (unknown) (no (unknown) (unknown) Jaw fracture (units (u nknown) date) unknown) (unknown) (no (unknown) (unknown) Loc: [facility] (units (unkno wn) date) unknown) (unknown) (no (unknown) (unknown) 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 (07/09/17) (unknown) (no (unknown) (unknown) Medical History (units (unknown) date) (Reviewed unknown) 12/10/21 @ 14:36 by Alexandro English RN) (unknown) (no (unknown) (unknown) Medications (units (un known) date) unknown) (unknown) (no (unknown) (unknown) Myocardial (units (unk nown) date) infarction (1995) unknown) (unknown) (no (unknown) (unknown) Neck (units (unkno wn) date) unknown) (unknown) (no (unknown) (unknown) Neck: normal (units (u nknown) date) visual inspection unknown) (unknown) (no (unknown) (unknown) No Known Drug (units ( unknown) date) Allergies Allergy unknown) (Verified 12/24/21 10:26) (unknown) (no (unknown) (unknown) 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 (unknown) (no (unknown) (unknown) Nutritional (units (un known) date) Appearance: thin unknown) (unknown) (no (unknown) (unknown) Orientation: (units (u nknown) date) alert, awake and unknown) oriented x3 (unknown) (no (unknown) (unknown) PFSH (units (unkno wn) date) unknown) (unknown) (no (unknown) (unknown) Patient: (units (unkno wn) date) Eb Flores unknown) MR#: [id number] (unknown) (no (unknown) (unknown) Percussion: (units (un known) date) percussion normal unknown) (unknown) (no (unknown) (unknown) ROS (units (unkno wn) date) unknown) (unknown) (no (unknown) (unknown) Rate: regular (units ( unknown) date) rate unknown) (unknown) (no (unknown) (unknown) Reason For Visit (units (unknown) date) unknown) (unknown) (no (unknown) (unknown) Resp (units (unkno wn) date) unknown) (unknown) (no (unknown) (unknown) Rhythm: regular (units (unknown) date) rhythm unknown) (unknown) (no (unknown) (unknown) 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) unknown) (unknown) (no (unknown) (unknown) Signed By: (units (unk nown) date) unknown) (unknown) (no (unknown) (unknown) Smoking Status: (units (unknown) date) Former smoker unknown) (unknown) (no (unknown) (unknown) Social History (units (unknown) date) unknown) (unknown) (no (unknown) (unknown) Surgical History (units (unknown) date) (Reviewed unknown) 12/10/21 @ 14:36 by Alexandro English RN) (unknown) (no (unknown) (unknown) This note may (units ( unknown) date) have been all or unknown) partially generated using voice recognition (unknown) (no (unknown) (unknown) Tobacco + (units (unkn own) date) Substance Use unknown) (unknown) (no (unknown) (unknown) Tobacco Status (units (unknown) date) unknown) (unknown) (no (unknown) (unknown) Visit Reasons: 1 (units (unknown) date) Mo FU unknown) (unknown) (no (unknown) (unknown) We will follow up (units (unknown) date) in 1 month to unknown) re-evaluate his pulm symptoms. If persistent, we (unknown) (no (unknown) (unknown) We will follow (units (unknown) date) up with imaging unknown) performed today and go from there. He agrees to (unknown) (no (unknown) (unknown) We will follow (units (unknown) date) up with results. unknown) (unknown) (no (unknown) (unknown) [History (units (unkno wn) date) Confirmed unknown) 12/24/21] (unknown) (no (unknown) (unknown) acetaminophen (units ( unknown) date) 500 mg capsule unknown) 500 mg PO Q6H PRN Pain 03/24/18 [History Confirmed (unknown) (no (unknown) (unknown) albuterol PRN to (units (unknown) date) his current unknown) regimen. He agrees. We also discussed having to add (unknown) (no (unknown) (unknown) albuterol more (units (unknown) date) frequently than 2 unknown) puffs every 4 hours. He understands. We (unknown) (no (unknown) (unknown) albuterol (units (unkn own) date) sulfate 90 unknown) mcg/actuation breath activated powder inhaler 2 inh (unknown) (no (unknown) (unknown) albuterol when (units (unknown) date) this happens and unknown) it provides relief. He states this only happens (unknown) (no (unknown) (unknown) alcohol intake: (units (unknown) date) current unknown) (unknown) (no (unknown) (unknown) angina pectoris (units (unknown) date) (06/03/16) unknown) (unknown) (no (unknown) (unknown) another (units (unkno wn) date) controlling unknown) medication in the future if he feels the need to use (unknown) (no (unknown) (unknown) as 'feeling like (units (unknown) date) he is trying to unknown) cough something up.' He states he takes his (unknown) (no (unknown) (unknown) at lunch time, (units (unknown) date) and denies any unknown) difference in his eating during other meal times. (unknown) (no (unknown) (unknown) atorvastatin 20 (units (unknown) date) mg tablet 20 mg unknown) PO BEDTIME #90 tabs 04/25/21 [Rx Confirmed (unknown) (no (unknown) (unknown) caps 08/28/21 (units ( unknown) date) [Rx Confirmed unknown) 12/24/21] (unknown) (no (unknown) (unknown) caregiver/suppor (units (unknown) date) t person: No unknown) (unknown) (no (unknown) (unknown) chest pain, (units (un known) date) palpitations, unknown) fever, chills, or shortness of breath. (unknown) (no (unknown) (unknown) complains of a (units (unknown) date) non-productive unknown) cough when he is eating lunch, that he describes (unknown) (no (unknown) (unknown) diclofenac (units (unk nown) date) sodium 1 % unknown) topical gel (Voltaren Arthritis Pain) 4 g topical QID PRN (unknown) (no (unknown) (unknown) diclofenac (units (unk nown) date) sodium 1 % unknown) topical gel 2 g topical QID #100 grams 08/07/20 [Rx (unknown) (no (unknown) (unknown) discussed side (units (unknown) date) effects and unknown) contraindications . (unknown) (no (unknown) (unknown) doing. He (units (unkn own) date) understands and unknown) agrees to the plan. (unknown) (no (unknown) (unknown) during a (units (unkno wn) date) coughing fit unknown) which helped his symptoms. Today we discussed adding (unknown) (no (unknown) (unknown) everyday. He has (units (unknown) date) been eating a unknown) generally balanced diet and drinking Boost (unknown) (no (unknown) (unknown) extra time to (units (u nknown) date) avoid obstacles unknown) to mitigate falls, as well as being careful in the (unknown) (no (unknown) (unknown) fluoxetine 20 mg (units (unknown) date) capsule 20 mg PO unknown) DAILY #90 caps 06/26/21 [Rx Confirmed (unknown) (no (unknown) (unknown) has no recent (units ( unknown) date) health changes or unknown) concerns. (unknown) (no (unknown) (unknown) have occurred. (units (unknown) date) If there are any unknown) questions, please contact the Medical Records (unknown) (no (unknown) (unknown) headaches, light (units (unknown) date) headedness or unknown) near syncopy. He does endorse some balance issues (unknown) (no (unknown) (unknown) hemoptysis and (units ( unknown) date) lumbar pain, I am unknown) concerned about a potential malignant etiology. (unknown) (no (unknown) (unknown) his weight has (units (unknown) date) been steady over unknown) the past month and notes he weighs himself (unknown) (no (unknown) (unknown) household (units (unkn own) date) members: spouse unknown) (unknown) (no (unknown) (unknown) housing: house (units (unknown) date) unknown) (unknown) (no (unknown) (unknown) hypertension (units (u nknown) date) here for follow unknown) up. (unknown) (no (unknown) (unknown) inh inhalation (units (unknown) date) QAM #12 grams unknown) 12/12/21 [Rx Confirmed 12/24/21] (unknown) (no (unknown) (unknown) inhalation Q4H (units (unknown) date) PRN shortness of unknown) breath or wheezing #1 ea 11/12/21 [Rx Confirmed (unknown) (no (unknown) (unknown) lives (units (unkno wn) date) independently: unknown) Yes (unknown) (no (unknown) (unknown) losartan 100 mg (units (unknown) date) tablet 100 mg PO unknown) BEDTIME BP #90 tabs 07/24/20 [Rx Confirmed (unknown) (no (unknown) (unknown) marital status: (units (unknown) date) unknown) (unknown) (no (unknown) (unknown) may occur. (units (unk nown) date) Occasional unknown) wrong-word or 'sound-alike' substitutions may have (unknown) (no (unknown) (unknown) metoprolol (units (unk nown) date) tartrate 50 mg unknown) tablet 50 mg PO BID #180 tabs 11/23/21 [Rx Confirmed (unknown) (no (unknown) (unknown) morning. He (units (un known) date) states it unknown) produces phlegm, and denies any hemoptysis. He also (unknown) (no (unknown) (unknown) number of (units (unkn own) date) children: 2 unknown) (unknown) (no (unknown) (unknown) obstructive (units (un known) date) pulmonary unknown) disease, unspecified (unknown) (no (unknown) (unknown) occurred due to (units (unknown) date) the inherent unknown) limitations of voice recognition software. Please (unknown) (no (unknown) (unknown) omeprazole 40 mg (units (unknown) date) capsule,delayed unknown) release See Rx Instructions .Route .COMPLEX #90 (unknown) (no (unknown) (unknown) pain #100 grams (units (unknown) date) 08/30/21 [Rx unknown) Confirmed 12/24/21] (unknown) (no (unknown) (unknown) placebo vs (units (unk nown) date) aspirin .Route unknown) 04/11/20 [History Confirmed 12/24/21] (unknown) (no (unknown) (unknown) pt is ok with (units ( unknown) date) student unknown) (unknown) (no (unknown) (unknown) read the note (units ( unknown) date) carefully and unknown) recognize, using context, where these substitutions (unknown) (no (unknown) (unknown) removal that was (units (unknown) date) canceled and he unknown) is interested in re-scheduling. (unknown) (no (unknown) (unknown) rivaroxaban 20 (units (unknown) date) mg tablet unknown) (Xarelto) 20 mg PO QPM #90 tabs 05/16/20 [Rx Confirmed (unknown) (no (unknown) (unknown) second hand (units (un known) date) exposure: No unknown) (unknown) (no (unknown) (unknown) sentences (units (unkn own) date) unknown) (unknown) (no (unknown) (unknown) setting of (units (unk nown) date) drinking alcohol. unknown) We will follow up in 1 month to see how he is (unknown) (no (unknown) (unknown) software. 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 He otherwise (unknown) (no (unknown) (unknown) substance use (units ( unknown) date) type: does not unknown) use (unknown) (no (unknown) (unknown) supplements (units (un known) date) intermittently. unknown) (unknown) (no (unknown) (unknown) tadalafil 10 mg (units (unknown) date) tablet (Cialis) unknown) 10 mg PO PRN PRN Sexual Activity 11/05/19 (unknown) (no (unknown) (unknown) that he is going (units (unknown) date) to physical unknown) therapy for. He also had an appointment for ear wax (unknown) (no (unknown) (unknown) the plan. (units (unkn own) date) unknown) (unknown) (no (unknown) (unknown) tiotropium (units (unk nown) date) bromide 2.5 unknown) mcg/actuation mist for inhalation (Spiriva Respimat) 2 (unknown) (no (unknown) (unknown) will discuss (units (u nknown) date) doing PFTs. unknown) Result panel 12 (unknown) (no (unknown) (unknown) (no value) (units (unk nown) date) unknown) (unknown) (no (unknown) (unknown) Assessment and (units (unknown) date) Plan: unknown) (unknown) (no (unknown) (unknown) Qualifiers: (units (un known) date) unknown) (unknown) (no (unknown) (unknown) Status: Acute (units ( unknown) date) unknown) (unknown) (no (unknown) (unknown) (no value) (units (unk nown) date) unknown) (unknown) (no (unknown) (unknown) (no value) (units (unk nown) date) unknown) (unknown) (no (unknown) (unknown) [facility] (units (unknown) date) Medicine unknown) (unknown) (no (unknown) (unknown) [place] (units ( unknown) date) [id number] unknown) (unknown) (no (unknown) (unknown) COPD type: (units (unk nown) date) unspecified COPD unknown) Qualified Code(s): J44.9 - Chronic (unknown) (no (unknown) (unknown) Draft (units (unkno wn) date) unknown) (unknown) (no (unknown) (unknown) [facility] (units (unknown) date) Office Visit unknown) (unknown) (no (unknown) (unknown) (no value) (units (unk nown) date) unknown) (unknown) (no (unknown) (unknown) (1) COPD (units (unkno wn) date) (chronic unknown) obstructive pulmonary disease): (unknown) (no (unknown) (unknown) (2) Frequent (units (u nknown) date) falls: unknown) (unknown) (no (unknown) (unknown) (3) Weight loss: (units (unknown) date) unknown) (unknown) (no (unknown) (unknown) [id number] (units (unkno wn) date) unknown) (unknown) (no (unknown) (unknown) 12/24/21 (units (unkno wn) date) unknown) (unknown) (no (unknown) (unknown) 12/24/21] (units (unkn own) date) unknown) (unknown) (no (unknown) (unknown) 1 mo f/u (units (unkno wn) date) unknown) (unknown) (no (unknown) (unknown) Accompanied by: (units (unknown) date) unknown) (unknown) (no (unknown) (unknown) Age/Sex: 86 / M (units (unknown) date) Date of Service: unknown) (unknown) (no (unknown) (unknown) All systems (units (un known) date) reviewed + are unknown) unremarkable except as noted in HPI and below (unknown) (no (unknown) (unknown) Allergies (units (unkn own) date) unknown) (unknown) (no (unknown) (unknown) Anemia (units (unkno wn) date) (08/29/17) unknown) (unknown) (no (unknown) (unknown) Arrhythmia (units (unk nown) date) unknown) (unknown) (no (unknown) (unknown) Assessment + (units (u nknown) date) Plan unknown) (unknown) (no (unknown) (unknown) Atrial (units (unkno wn) date) fibrillation is unknown) well controlled, no new symptoms. (unknown) (no (unknown) (unknown) Atrial (units (unkno wn) date) fibrillation with unknown) rapid ventricular response (05/06/16) (unknown) (no (unknown) (unknown) Attending Dr: (units ( unknown) date) Aditi Saunders MD unknown) (unknown) (no (unknown) (unknown) Auscultation: (units ( unknown) date) clear to unknown) auscultation bilaterally (unknown) (no (unknown) (unknown) COPD (chronic (units ( unknown) date) obstructive unknown) pulmonary disease) (unknown) (no (unknown) (unknown) Cardio (units (unkno wn) date) unknown) (unknown) (no (unknown) (unknown) Chief Complaint (units (unknown) date) unknown) (unknown) (no (unknown) (unknown) Chief Complaint: (units (unknown) date) Follow up unknown) (unknown) (no (unknown) (unknown) Confirmed (units (unkn own) date) 12/24/21] unknown) (unknown) (no (unknown) (unknown) Const (units (unkno wn) date) unknown) (unknown) (no (unknown) (unknown) Coronary artery (units (unknown) date) disease involving unknown) coronary bypass graft of [place] heart without (unknown) (no (unknown) (unknown) : 1935 (units (unknown) date) Acct:[id number] unknown) (unknown) (no (unknown) (unknown) Eb is an 86 (units (unknown) date) year old male unknown) with history of COPD, atrial fibrillation and (unknown) (no (unknown) (unknown) Eb is still (units (unknown) date) having falls. He unknown) is currently in physical therapy for this and (unknown) (no (unknown) (unknown) Eb's cough (units (unknown) date) has improved. He unknown) is tolerating Spiriva well and using his (unknown) (no (unknown) (unknown) Eb's weight (units (unknown) date) has remained unknown) stable over the past month. Imaging ordered was not (unknown) (no (unknown) (unknown) Dept at (units (unkno wn) date) . unknown) (unknown) (no (unknown) (unknown) Details: (units (unkno wn) date) unknown) (unknown) (no (unknown) (unknown) Discussed recent (units (unknown) date) chest XR and PFT unknown) results which were unremarkable. Discussed (unknown) (no (unknown) (unknown) Documented By: (units (unknown) date) Aditi Saunders MD unknown) 12/24/21 1020 (unknown) (no (unknown) (unknown) Easy (units (unkno wn) date) bruisability unknown) (unknown) (no (unknown) (unknown) Effort + (units (unkno wn) date) Inspection: unknown) normal respiratory effort and able to speak in complete (unknown) (no (unknown) (unknown) Erectile (units (unkno wn) date) dysfunction unknown) (07/24/16) (unknown) (no (unknown) (unknown) Essential (units (unkn own) date) hypertension unknown) (06/03/16) (unknown) (no (unknown) (unknown) Exam (units (unkno wn) date) unknown) (unknown) (no (unknown) (unknown) Eyes (units (unkno wn) date) unknown) (unknown) (no (unknown) (unknown) Former smoker (units ( unknown) date) unknown) (unknown) (no (unknown) (unknown) GERD (units (unkno wn) date) (gastroesophageal unknown) reflux disease) (unknown) (no (unknown) (unknown) General: (units (unkno wn) date) appearance unknown) normal, both eyes and all related structures (unknown) (no (unknown) (unknown) General: (units (unkno wn) date) cooperative, no unknown) acute distress and well groomed (unknown) (no (unknown) (unknown) HPI (units (unkno wn) date) unknown) (unknown) (no (unknown) (unknown) He has continued (units (unknown) date) to have falls, unknown) 2-3 in the last month. He denies any dizziness, (unknown) (no (unknown) (unknown) He is also (units (unkn own) date) concerned about unknown) his weight loss over the past 3 years. He states that (unknown) (no (unknown) (unknown) He sleeps 16-17 (units (unknown) date) hours/day. He unknown) denies any changes in his mood. He states he is (unknown) (no (unknown) (unknown) He states he (units (u nknown) date) takes his unknown) albuterol when this happens and it provides relief. He (unknown) (no (unknown) (unknown) He states his (units ( unknown) date) cough has unknown) slightly improved. He has a productive cough in the (unknown) (no (unknown) (unknown) Health (units (unkno wn) date) Management unknown) (unknown) (no (unknown) (unknown) Health (units (unkno wn) date) Management unknown) reviewed with patient: Yes (unknown) (no (unknown) (unknown) Heart Sounds: S1 (units (unknown) date) normal, S2 unknown) normal, no gallops, no murmurs and no rubs (unknown) (no (unknown) (unknown) Hemorrhagic (units (un known) date) stroke unknown) (unknown) (no (unknown) (unknown) History of (units (unk nown) date) colonoscopy unknown) (unknown) (no (unknown) (unknown) Hx of bilateral (units (unknown) date) cataract unknown) extraction (07/2019) (unknown) (no (unknown) (unknown) Hx of cardiac (units ( unknown) date) cath unknown) (unknown) (no (unknown) (unknown) Hx of heart (units (un known) date) artery stent unknown) (1998) (unknown) (no (unknown) (unknown) Intake (units (unkno wn) date) unknown) (unknown) (no (unknown) (unknown) Intake Note: (units (u nknown) date) unknown) (unknown) (no (unknown) (unknown) Intake performed (units (unknown) date) by: unknown) Tawana Rowan (unknown) (no (unknown) (unknown) Intake- Clincial (units (unknown) date) Staff unknown) (unknown) (no (unknown) (unknown) Jaw fracture (units (u nknown) date) unknown) (unknown) (no (unknown) (unknown) Loc: [facility] (units (unkno wn) date) unknown) (unknown) (no (unknown) (unknown) 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 (07/09/17) (unknown) (no (unknown) (unknown) Medical History (units (unknown) date) (Reviewed unknown) 12/10/21 @ 14:36 by Alexandro English RN) (unknown) (no (unknown) (unknown) Medications (units (un known) date) unknown) (unknown) (no (unknown) (unknown) Myocardial (units (unk nown) date) infarction (1995) unknown) (unknown) (no (unknown) (unknown) Neck (units (unkno wn) date) unknown) (unknown) (no (unknown) (unknown) Neck: normal (units (u nknown) date) visual inspection unknown) (unknown) (no (unknown) (unknown) No Known Drug (units ( unknown) date) Allergies Allergy unknown) (Verified 12/24/21 10:26) (unknown) (no (unknown) (unknown) 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 (unknown) (no (unknown) (unknown) Nutritional (units (un known) date) Appearance: thin unknown) (unknown) (no (unknown) (unknown) Orientation: (units (u nknown) date) alert, awake and unknown) oriented x3 (unknown) (no (unknown) (unknown) PFSH (units (unkno wn) date) unknown) (unknown) (no (unknown) (unknown) Patient: (units (unkno wn) date) Eb Flores unknown) MR#: [id number] (unknown) (no (unknown) (unknown) Percussion: (units (un known) date) percussion normal unknown) (unknown) (no (unknown) (unknown) ROS (units (unkno wn) date) unknown) (unknown) (no (unknown) (unknown) Rate: regular (units ( unknown) date) rate unknown) (unknown) (no (unknown) (unknown) Reason For Visit (units (unknown) date) unknown) (unknown) (no (unknown) (unknown) Resp (units (unkno wn) date) unknown) (unknown) (no (unknown) (unknown) Rhythm: regular (units (unknown) date) rhythm unknown) (unknown) (no (unknown) (unknown) 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) unknown) (unknown) (no (unknown) (unknown) Signed By: (units (unk nown) date) unknown) (unknown) (no (unknown) (unknown) Smoking Status: (units (unknown) date) Former smoker unknown) (unknown) (no (unknown) (unknown) Social History (units (unknown) date) unknown) (unknown) (no (unknown) (unknown) Surgical History (units (unknown) date) (Reviewed unknown) 12/10/21 @ 14:36 by Alexandro English RN) (unknown) (no (unknown) (unknown) This note may (units ( unknown) date) have been all or unknown) partially generated using voice recognition (unknown) (no (unknown) (unknown) Tobacco + (units (unkn own) date) Substance Use unknown) (unknown) (no (unknown) (unknown) Tobacco Status (units (unknown) date) unknown) (unknown) (no (unknown) (unknown) Visit Reasons: 1 (units (unknown) date) Mo FU unknown) (unknown) (no (unknown) (unknown) [History (units (unkno wn) date) Confirmed unknown) 12/24/21] (unknown) (no (unknown) (unknown) acetaminophen (units ( unknown) date) 500 mg capsule unknown) 500 mg PO Q6H PRN Pain 03/24/18 [History Confirmed (unknown) (no (unknown) (unknown) albuterol as (units (u nknown) date) needed, 1-2x unknown) week. Will continue with current treatment regimen. (unknown) (no (unknown) (unknown) albuterol (units (unkn own) date) sulfate 90 unknown) mcg/actuation breath activated powder inhaler 2 inh (unknown) (no (unknown) (unknown) alcohol intake: (units (unknown) date) current unknown) (unknown) (no (unknown) (unknown) angina pectoris (units (unknown) date) (01/02/17) unknown) (unknown) (no (unknown) (unknown) answered. (units (unkn own) date) unknown) (unknown) (no (unknown) (unknown) answered. Will (units (unknown) date) follow up in 2 unknown) months for a weight check. (unknown) (no (unknown) (unknown) any hemoptysis. (units (unknown) date) He also complains unknown) of a non-productive cough when he is eating (unknown) (no (unknown) (unknown) atorvastatin 20 (units (unknown) date) mg tablet 20 mg unknown) PO BEDTIME #90 tabs 04/25/21 [Rx Confirmed (unknown) (no (unknown) (unknown) balanced, (units (unkn own) date) calorie-dense unknown) diet. Patient agrees with plan. All questions were (unknown) (no (unknown) (unknown) caps 08/28/21 (units ( unknown) date) [Rx Confirmed unknown) 12/24/21] (unknown) (no (unknown) (unknown) caregiver/suppor (units (unknown) date) t person: No unknown) (unknown) (no (unknown) (unknown) choking as a (units (u nknown) date) contributing unknown) factor to his cough during lunch time and recommended (unknown) (no (unknown) (unknown) concerning for (units (unknown) date) malignancy. He unknown) has been eating a balanced diet and supplementing (unknown) (no (unknown) (unknown) diclofenac (units (unk nown) date) sodium 1 % unknown) topical gel (Voltaren Arthritis Pain) 4 g topical QID PRN (unknown) (no (unknown) (unknown) diclofenac (units (unk nown) date) sodium 1 % unknown) topical gel 2 g topical QID #100 grams 08/07/20 [Rx (unknown) (no (unknown) (unknown) during other (units (u nknown) date) meal times. His unknown) does note he eats in a 'slumped over' (unknown) (no (unknown) (unknown) everyday. He has (units (unknown) date) been eating a unknown) generally balanced diet and drinking Boost (unknown) (no (unknown) (unknown) fluoxetine 20 mg (units (unknown) date) capsule 20 mg PO unknown) DAILY #90 caps 06/26/21 [Rx Confirmed (unknown) (no (unknown) (unknown) has no recent (units ( unknown) date) health changes or unknown) concerns. (unknown) (no (unknown) (unknown) have occurred. (units (unknown) date) If there are any unknown) questions, please contact the Medical Records (unknown) (no (unknown) (unknown) he eat slower (units ( unknown) date) and sit upright unknown) while eating. Discussed ordering a swallow study (unknown) (no (unknown) (unknown) headaches, light (units (unknown) date) headedness or unknown) near syncopy. He does endorse some balance issues (unknown) (no (unknown) (unknown) his weight has (units (unknown) date) been steady over unknown) the past month and notes he weighs himself (unknown) (no (unknown) (unknown) household (units (unkn own) date) members: spouse unknown) (unknown) (no (unknown) (unknown) housing: house (units (unknown) date) unknown) (unknown) (no (unknown) (unknown) hypertension (units (u nknown) date) here for follow unknown) up. (unknown) (no (unknown) (unknown) if symptoms (units (un known) date) persist or unknown) worsen. Patient agrees with plan. All questions were (unknown) (no (unknown) (unknown) inh inhalation (units (unknown) date) QAM #12 grams unknown) 12/12/21 [Rx Confirmed 12/24/21] (unknown) (no (unknown) (unknown) inhalation Q4H (units (unknown) date) PRN shortness of unknown) breath or wheezing #1 ea 11/12/21 [Rx Confirmed (unknown) (no (unknown) (unknown) lives (units (unkno wn) date) independently: unknown) Yes (unknown) (no (unknown) (unknown) losartan 100 mg (units (unknown) date) tablet 100 mg PO unknown) BEDTIME BP #90 tabs 07/24/20 [Rx Confirmed (unknown) (no (unknown) (unknown) lunch, that he (units (unknown) date) describes as unknown) 'feeling like he is trying to cough something up.' (unknown) (no (unknown) (unknown) marital status: (units (unknown) date) unknown) (unknown) (no (unknown) (unknown) may occur. (units (unk nown) date) Occasional unknown) wrong-word or 'sound-alike' substitutions may have (unknown) (no (unknown) (unknown) metoprolol (units (unk nown) date) tartrate 50 mg unknown) tablet 50 mg PO BID #180 tabs 11/23/21 [Rx Confirmed (unknown) (no (unknown) (unknown) morning for which (units (unknown) date) he takes his unknown) Spiriva. He states it produces phlegm, and denies (unknown) (no (unknown) (unknown) number of (units (unkn own) date) children: 2 unknown) (unknown) (no (unknown) (unknown) obstructive (units (un known) date) pulmonary unknown) disease, unspecified (unknown) (no (unknown) (unknown) occurred due to (units (unknown) date) the inherent unknown) limitations of voice recognition software. Please (unknown) (no (unknown) (unknown) omeprazole 40 mg (units (unknown) date) capsule,delayed unknown) release See Rx Instructions .Route .COMPLEX #90 (unknown) (no (unknown) (unknown) pain #100 grams (units (unknown) date) 08/30/21 [Rx unknown) Confirmed 12/24/21] (unknown) (no (unknown) (unknown) placebo vs (units (unk nown) date) aspirin .Route unknown) 04/11/20 [History Confirmed 12/24/21] (unknown) (no (unknown) (unknown) position. He has (units (unknown) date) not had any chest unknown) pain, palpitations, fever, chills, or (unknown) (no (unknown) (unknown) pt is ok with (units ( unknown) date) student unknown) (unknown) (no (unknown) (unknown) read the note (units ( unknown) date) carefully and unknown) recognize, using context, where these substitutions (unknown) (no (unknown) (unknown) removal that was (units (unknown) date) canceled and he unknown) is interested in re-scheduling. (unknown) (no (unknown) (unknown) rivaroxaban 20 (units (unknown) date) mg tablet unknown) (Xarelto) 20 mg PO QPM #90 tabs 05/16/20 [Rx Confirmed (unknown) (no (unknown) (unknown) second hand (units (un known) date) exposure: No unknown) (unknown) (no (unknown) (unknown) sentences (units (unkn own) date) unknown) (unknown) (no (unknown) (unknown) shortness of (units (u nknown) date) breath. unknown) (unknown) (no (unknown) (unknown) should also help (units (unknown) date) with his balance. unknown) Patient agrees with plan. All questions were (unknown) (no (unknown) (unknown) software. 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 He otherwise (unknown) (no (unknown) (unknown) substance use (units ( unknown) date) type: does not unknown) use (unknown) (no (unknown) (unknown) supplements (units (un known) date) intermittently. unknown) (unknown) (no (unknown) (unknown) tadalafil 10 mg (units (unknown) date) tablet (Cialis) unknown) 10 mg PO PRN PRN Sexual Activity 11/05/19 (unknown) (no (unknown) (unknown) that he is going (units (unknown) date) to physical unknown) therapy for. He also had an appointment for ear wax (unknown) (no (unknown) (unknown) tiotropium (units (unk nown) date) bromide 2.5 unknown) mcg/actuation mist for inhalation (Spiriva Respimat) 2 (unknown) (no (unknown) (unknown) will continue (units ( unknown) date) attending. Will unknown) schedule an appointment for ear wax removal which (unknown) (no (unknown) (unknown) with Boost (units (unk nown) date) drinks. Discussed unknown) continuing to supplement with Boost and eating a Result panel 13 (unknown) (no (unknown) (unknown) (no value) (units (unk nown) date) unknown) (unknown) (no (unknown) (unknown) Assessment and (units (unknown) date) Plan: unknown) (unknown) (no (unknown) (unknown) Qualifiers: (units (un known) date) unknown) (unknown) (no (unknown) (unknown) Status: Acute (units ( unknown) date) unknown) (unknown) (no (unknown) (unknown) (no value) (units (unk nown) date) unknown) (unknown) (no (unknown) (unknown) (no value) (units (unk nown) date) unknown) (unknown) (no (unknown) (unknown) 12/24/21 (units (unkno wn) date) unknown) (unknown) (no (unknown) (unknown) 10:27 (units (unkno wn) date) unknown) (unknown) (no (unknown) (unknown) [facility] (units (unknown) date) Medicine unknown) (unknown) (no (unknown) (unknown) [place] (units ( unknown) date) [id number] unknown) (unknown) (no (unknown) (unknown) COPD type: (units (unk nown) date) unspecified COPD unknown) Qualified Code(s): J44.9 - Chronic (unknown) (no (unknown) (unknown) Draft (units (unkno wn) date) unknown) (unknown) (no (unknown) (unknown) [facility] (units (unknown) date) Office Visit unknown) (unknown) (no (unknown) (unknown) (no value) (units (unk nown) date) unknown) (unknown) (no (unknown) (unknown) (1) COPD (units (unkno wn) date) (chronic unknown) obstructive pulmonary disease): (unknown) (no (unknown) (unknown) (2) Frequent (units (u nknown) date) falls: unknown) (unknown) (no (unknown) (unknown) (3) Weight loss: (units (unknown) date) unknown) (unknown) (no (unknown) (unknown) [id number] (units (unkno wn) date) unknown) (unknown) (no (unknown) (unknown) 12/24/21 (units (unkno wn) date) unknown) (unknown) (no (unknown) (unknown) 12/24/21] (units (unkn own) date) unknown) (unknown) (no (unknown) (unknown) 1 mo f/u (units (unkno wn) date) unknown) (unknown) (no (unknown) (unknown) Accompanied by: (units (unknown) date) unknown) (unknown) (no (unknown) (unknown) Age/Sex: 86 / M (units (unknown) date) Date of Service: unknown) (unknown) (no (unknown) (unknown) All systems (units (un known) date) reviewed + are unknown) unremarkable except as noted in HPI and below (unknown) (no (unknown) (unknown) Allergies (units (unkn own) date) unknown) (unknown) (no (unknown) (unknown) Anemia (units (unkno wn) date) (08/29/17) unknown) (unknown) (no (unknown) (unknown) Arrhythmia (units (unk nown) date) unknown) (unknown) (no (unknown) (unknown) Assessment + (units (u nknown) date) Plan unknown) (unknown) (no (unknown) (unknown) Atrial (units (unkno wn) date) fibrillation is unknown) well controlled, no new symptoms. (unknown) (no (unknown) (unknown) Atrial (units (unkno wn) date) fibrillation with unknown) rapid ventricular response (05/06/16) (unknown) (no (unknown) (unknown) Attending Dr: (units ( unknown) date) Aditi Saunders MD unknown) (unknown) (no (unknown) (unknown) Auscultation: (units ( unknown) date) clear to unknown) auscultation bilaterally (unknown) (no (unknown) (unknown) BMI 22.1 (units (unkno wn) date) unknown) (unknown) (no (unknown) (unknown) BP 128/58 L (units (un known) date) unknown) (unknown) (no (unknown) (unknown) Blood Pressure (units (unknown) date) Location Lt unknown) brachial (unknown) (no (unknown) (unknown) COPD (chronic (units ( unknown) date) obstructive unknown) pulmonary disease) (unknown) (no (unknown) (unknown) Cardio (units (unkno wn) date) unknown) (unknown) (no (unknown) (unknown) Chief Complaint (units (unknown) date) unknown) (unknown) (no (unknown) (unknown) Chief Complaint: (units (unknown) date) Follow up unknown) (unknown) (no (unknown) (unknown) Confirmed (units (unkn own) date) 12/24/21] unknown) (unknown) (no (unknown) (unknown) Const (units (unkno wn) date) unknown) (unknown) (no (unknown) (unknown) Coronary artery (units (unknown) date) disease involving unknown) coronary bypass graft of [place] heart without (unknown) (no (unknown) (unknown) : 1935 (units (unknown) date) Acct:[id number] unknown) (unknown) (no (unknown) (unknown) Eb is an 86 (units (unknown) date) year old male unknown) with history of COPD, atrial fibrillation and (unknown) (no (unknown) (unknown) Eb is still (units (unknown) date) having falls. He unknown) is currently in physical therapy for this and (unknown) (no (unknown) (unknown) Eb's cough (units (unknown) date) has improved. He unknown) is tolerating Spiriva well and using his (unknown) (no (unknown) (unknown) Eb's weight (units (unknown) date) has remained unknown) stable over the past month. Imaging ordered was not (unknown) (no (unknown) (unknown) Dept at (units (unkno wn) date) . unknown) (unknown) (no (unknown) (unknown) Details: (units (unkno wn) date) unknown) (unknown) (no (unknown) (unknown) Discussed recent (units (unknown) date) chest XR and PFT unknown) results which were unremarkable. Discussed (unknown) (no (unknown) (unknown) Documented By: (units (unknown) date) Aditi Saunders MD unknown) 12/24/21 1020 (unknown) (no (unknown) (unknown) Easy (units (unkno wn) date) bruisability unknown) (unknown) (no (unknown) (unknown) Effort + (units (unkno wn) date) Inspection: unknown) normal respiratory effort and able to speak in complete (unknown) (no (unknown) (unknown) Erectile (units (unkno wn) date) dysfunction unknown) (07/24/16) (unknown) (no (unknown) (unknown) Essential (units (unkn own) date) hypertension unknown) (06/03/16) (unknown) (no (unknown) (unknown) Exam (units (unkno wn) date) unknown) (unknown) (no (unknown) (unknown) Eyes (units (unkno wn) date) unknown) (unknown) (no (unknown) (unknown) Former smoker (units ( unknown) date) unknown) (unknown) (no (unknown) (unknown) GERD (units (unkno wn) date) (gastroesophageal unknown) reflux disease) (unknown) (no (unknown) (unknown) General: (units (unkno wn) date) appearance unknown) normal, both eyes and all related structures (unknown) (no (unknown) (unknown) General: (units (unkno wn) date) cooperative, no unknown) acute distress and well groomed (unknown) (no (unknown) (unknown) HPI (units (unkno wn) date) unknown) (unknown) (no (unknown) (unknown) He has continued (units (unknown) date) to have falls, unknown) 2-3 in the last month. He denies any dizziness, (unknown) (no (unknown) (unknown) He is also (units (unkn own) date) concerned about unknown) his weight loss over the past 3 years. He states that (unknown) (no (unknown) (unknown) He sleeps 16-17 (units (unknown) date) hours/day. He unknown) denies any changes in his mood. He states he is (unknown) (no (unknown) (unknown) He states he (units (u nknown) date) takes his unknown) albuterol when this happens and it provides relief. He (unknown) (no (unknown) (unknown) He states his (units ( unknown) date) cough has unknown) slightly improved. He has a productive cough in the (unknown) (no (unknown) (unknown) Health (units (unkno wn) date) Management unknown) (unknown) (no (unknown) (unknown) Health (units (unkno wn) date) Management unknown) reviewed with patient: Yes (unknown) (no (unknown) (unknown) Heart Sounds: no (units (unknown) date) gallops, no unknown) murmurs and no rubs (unknown) (no (unknown) (unknown) Height 6 ft (units (un known) date) unknown) (unknown) (no (unknown) (unknown) Hemorrhagic (units (un known) date) stroke unknown) (unknown) (no (unknown) (unknown) History of (units (unk nown) date) colonoscopy unknown) (unknown) (no (unknown) (unknown) Hx of bilateral (units (unknown) date) cataract unknown) extraction (07/2019) (unknown) (no (unknown) (unknown) Hx of cardiac (units ( unknown) date) cath unknown) (unknown) (no (unknown) (unknown) Hx of heart (units (un known) date) artery stent unknown) (1997) (unknown) (no (unknown) (unknown) Intake (units (unkno wn) date) unknown) (unknown) (no (unknown) (unknown) Intake Note: (units (u nknown) date) unknown) (unknown) (no (unknown) (unknown) Intake performed (units (unknown) date) by: unknown) Tawana Rowan (unknown) (no (unknown) (unknown) Intake- Clincial (units (unknown) date) Staff unknown) (unknown) (no (unknown) (unknown) Jaw fracture (units (u nknown) date) unknown) (unknown) (no (unknown) (unknown) Loc: [facility] (units (unkno wn) date) unknown) (unknown) (no (unknown) (unknown) 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 (07/09/17) (unknown) (no (unknown) (unknown) Medical History (units (unknown) date) (Reviewed unknown) 12/10/21 @ 14:36 by Alexandro English RN) (unknown) (no (unknown) (unknown) Medications (units (un known) date) unknown) (unknown) (no (unknown) (unknown) Myocardial (units (unk nown) date) infarction (1995) unknown) (unknown) (no (unknown) (unknown) Neck (units (unkno wn) date) unknown) (unknown) (no (unknown) (unknown) Neck: normal (units (u nknown) date) visual inspection unknown) (unknown) (no (unknown) (unknown) No Known Drug (units ( unknown) date) Allergies Allergy unknown) (Verified 12/24/21 10:26) (unknown) (no (unknown) (unknown) 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 (unknown) (no (unknown) (unknown) Nutritional (units (un known) date) Appearance: thin unknown) (unknown) (no (unknown) (unknown) Orientation: (units (u nknown) date) alert, awake and unknown) oriented x3 (unknown) (no (unknown) (unknown) Oxygen Delivery (units (unknown) date) Method room air unknown) (unknown) (no (unknown) (unknown) PFSH (units (unkno wn) date) unknown) (unknown) (no (unknown) (unknown) Patient: (units (unkno wn) date) Eb Flores unknown) MR#: [id number] (unknown) (no (unknown) (unknown) Percussion: (units (un known) date) percussion normal unknown) (unknown) (no (unknown) (unknown) Position Sitting (units (unknown) date) unknown) (unknown) (no (unknown) (unknown) Pulse 61 (units (unkno wn) date) unknown) (unknown) (no (unknown) (unknown) Pulse Oximetry (units (unknown) date) (%) 100 unknown) (unknown) (no (unknown) (unknown) Pulse Source (units (u nknown) date) Monitor unknown) (unknown) (no (unknown) (unknown) ROS (units (unkno wn) date) unknown) (unknown) (no (unknown) (unknown) Rate: regular (units ( unknown) date) rate unknown) (unknown) (no (unknown) (unknown) Reason For Visit (units (unknown) date) unknown) (unknown) (no (unknown) (unknown) Resp (units (unkno wn) date) unknown) (unknown) (no (unknown) (unknown) Respiration 16 (units (unknown) date) unknown) (unknown) (no (unknown) (unknown) Rhythm: abnormal (units (unknown) date) rhythm unknown) irregularly irregular (unknown) (no (unknown) (unknown) 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) unknown) (unknown) (no (unknown) (unknown) Signed By: (units (unk nown) date) unknown) (unknown) (no (unknown) (unknown) Smoking Status: (units (unknown) date) Former smoker unknown) (unknown) (no (unknown) (unknown) Social History (units (unknown) date) unknown) (unknown) (no (unknown) (unknown) Surgical History (units (unknown) date) (Reviewed unknown) 12/10/21 @ 14:36 by Alexandro English RN) (unknown) (no (unknown) (unknown) Temp 97.3 F L (units ( unknown) date) unknown) (unknown) (no (unknown) (unknown) Temp Source (units (un known) date) Temporal Artery unknown) Scan (unknown) (no (unknown) (unknown) This note may (units ( unknown) date) have been all or unknown) partially generated using voice recognition (unknown) (no (unknown) (unknown) Tobacco + (units (unkn own) date) Substance Use unknown) (unknown) (no (unknown) (unknown) Tobacco Status (units (unknown) date) unknown) (unknown) (no (unknown) (unknown) Visit Reasons: 1 (units (unknown) date) Mo FU unknown) (unknown) (no (unknown) (unknown) Vitals (units (unkno wn) date) unknown) (unknown) (no (unknown) (unknown) Weight 163 lb (units ( unknown) date) unknown) (unknown) (no (unknown) (unknown) [History (units (unkno wn) date) Confirmed unknown) 12/24/21] (unknown) (no (unknown) (unknown) acetaminophen (units ( unknown) date) 500 mg capsule unknown) 500 mg PO Q6H PRN Pain 03/24/18 [History Confirmed (unknown) (no (unknown) (unknown) albuterol as (units (u nknown) date) needed, 1-2x unknown) week. Will continue with current treatment regimen. (unknown) (no (unknown) (unknown) albuterol (units (unkn own) date) sulfate 90 unknown) mcg/actuation breath activated powder inhaler 2 inh (unknown) (no (unknown) (unknown) alcohol intake: (units (unknown) date) current unknown) (unknown) (no (unknown) (unknown) angina pectoris (units (unknown) date) (06/03/16) unknown) (unknown) (no (unknown) (unknown) answered. (units (unkn own) date) unknown) (unknown) (no (unknown) (unknown) answered. Will (units (unknown) date) follow up in 2 unknown) months for a weight check. (unknown) (no (unknown) (unknown) any hemoptysis. (units (unknown) date) He also complains unknown) of a non-productive cough when he is eating (unknown) (no (unknown) (unknown) atorvastatin 20 (units (unknown) date) mg tablet 20 mg unknown) PO BEDTIME #90 tabs 04/25/21 [Rx Confirmed (unknown) (no (unknown) (unknown) balanced, (units (unkn own) date) calorie-dense unknown) diet. Patient agrees with plan. All questions were (unknown) (no (unknown) (unknown) caps 08/28/21 (units ( unknown) date) [Rx Confirmed unknown) 12/24/21] (unknown) (no (unknown) (unknown) caregiver/suppor (units (unknown) date) t person: No unknown) (unknown) (no (unknown) (unknown) choking as a (units (u nknown) date) contributing unknown) factor to his cough during lunch time and recommended (unknown) (no (unknown) (unknown) concerning for (units (unknown) date) malignancy. He unknown) has been eating a balanced diet and supplementing (unknown) (no (unknown) (unknown) diclofenac (units (unk nown) date) sodium 1 % unknown) topical gel (Voltaren Arthritis Pain) 4 g topical QID PRN (unknown) (no (unknown) (unknown) diclofenac (units (unk nown) date) sodium 1 % unknown) topical gel 2 g topical QID #100 grams 08/07/20 [Rx (unknown) (no (unknown) (unknown) during other (units (u nknown) date) meal times. His unknown) does note he eats in a 'slumped over' (unknown) (no (unknown) (unknown) everyday. He has (units (unknown) date) been eating a unknown) generally balanced diet and drinking Boost (unknown) (no (unknown) (unknown) fluoxetine 20 mg (units (unknown) date) capsule 20 mg PO unknown) DAILY #90 caps 06/26/21 [Rx Confirmed (unknown) (no (unknown) (unknown) has no recent (units ( unknown) date) health changes or unknown) concerns. (unknown) (no (unknown) (unknown) have occurred. (units (unknown) date) If there are any unknown) questions, please contact the Medical Records (unknown) (no (unknown) (unknown) he eat slower (units ( unknown) date) and sit upright unknown) while eating. Discussed ordering a swallow study (unknown) (no (unknown) (unknown) headaches, light (units (unknown) date) headedness or unknown) near syncopy. He does endorse some balance issues (unknown) (no (unknown) (unknown) his weight has (units (unknown) date) been steady over unknown) the past month and notes he weighs himself (unknown) (no (unknown) (unknown) household (units (unkn own) date) members: spouse unknown) (unknown) (no (unknown) (unknown) housing: house (units (unknown) date) unknown) (unknown) (no (unknown) (unknown) hypertension (units (u nknown) date) here for follow unknown) up. (unknown) (no (unknown) (unknown) if symptoms (units (un known) date) persist or unknown) worsen. Patient agrees with plan. All questions were (unknown) (no (unknown) (unknown) inh inhalation (units (unknown) date) QAM #12 grams unknown) 12/12/21 [Rx Confirmed 12/24/21] (unknown) (no (unknown) (unknown) inhalation Q4H (units (unknown) date) PRN shortness of unknown) breath or wheezing #1 ea 11/12/21 [Rx Confirmed (unknown) (no (unknown) (unknown) lives (units (unkno wn) date) independently: unknown) Yes (unknown) (no (unknown) (unknown) losartan 100 mg (units (unknown) date) tablet 100 mg PO unknown) BEDTIME BP #90 tabs 07/24/20 [Rx Confirmed (unknown) (no (unknown) (unknown) lunch, that he (units (unknown) date) describes as unknown) 'feeling like he is trying to cough something up.' (unknown) (no (unknown) (unknown) marital status: (units (unknown) date) unknown) (unknown) (no (unknown) (unknown) may occur. (units (unk nown) date) Occasional unknown) wrong-word or 'sound-alike' substitutions may have (unknown) (no (unknown) (unknown) metoprolol (units (unk nown) date) tartrate 50 mg unknown) tablet 50 mg PO BID #180 tabs 11/23/21 [Rx Confirmed (unknown) (no (unknown) (unknown) morning for which (units (unknown) date) he takes his unknown) Spiriva. He states it produces phlegm, and denies (unknown) (no (unknown) (unknown) number of (units (unkn own) date) children: 2 unknown) (unknown) (no (unknown) (unknown) obstructive (units (un known) date) pulmonary unknown) disease, unspecified (unknown) (no (unknown) (unknown) occurred due to (units (unknown) date) the inherent unknown) limitations of voice recognition software. Please (unknown) (no (unknown) (unknown) omeprazole 40 mg (units (unknown) date) capsule,delayed unknown) release See Rx Instructions .Route .COMPLEX #90 (unknown) (no (unknown) (unknown) pain #100 grams (units (unknown) date) 08/30/21 [Rx unknown) Confirmed 12/24/21] (unknown) (no (unknown) (unknown) placebo vs (units (unk nown) date) aspirin .Route unknown) 04/11/20 [History Confirmed 12/24/21] (unknown) (no (unknown) (unknown) position. He has (units (unknown) date) not had any chest unknown) pain, palpitations, fever, chills, or (unknown) (no (unknown) (unknown) pt is ok with (units ( unknown) date) student unknown) (unknown) (no (unknown) (unknown) read the note (units ( unknown) date) carefully and unknown) recognize, using context, where these substitutions (unknown) (no (unknown) (unknown) removal that was (units (unknown) date) canceled and he unknown) is interested in re-scheduling. (unknown) (no (unknown) (unknown) rivaroxaban 20 (units (unknown) date) mg tablet unknown) (Xarelto) 20 mg PO QPM #90 tabs 05/16/20 [Rx Confirmed (unknown) (no (unknown) (unknown) second hand (units (un known) date) exposure: No unknown) (unknown) (no (unknown) (unknown) sentences (units (unkn own) date) unknown) (unknown) (no (unknown) (unknown) shortness of (units (u nknown) date) breath. unknown) (unknown) (no (unknown) (unknown) should also help (units (unknown) date) with his balance. unknown) Patient agrees with plan. All questions were (unknown) (no (unknown) (unknown) software. 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 He otherwise (unknown) (no (unknown) (unknown) substance use (units ( unknown) date) type: does not unknown) use (unknown) (no (unknown) (unknown) supplements (units (un known) date) intermittently. unknown) (unknown) (no (unknown) (unknown) tadalafil 10 mg (units (unknown) date) tablet (Cialis) unknown) 10 mg PO PRN PRN Sexual Activity 11/05/19 (unknown) (no (unknown) (unknown) that he is going (units (unknown) date) to physical unknown) therapy for. He also had an appointment for ear wax (unknown) (no (unknown) (unknown) tiotropium (units (unk nown) date) bromide 2.5 unknown) mcg/actuation mist for inhalation (Spiriva Respimat) 2 (unknown) (no (unknown) (unknown) will continue (units ( unknown) date) attending. Will unknown) schedule an appointment for ear wax removal which (unknown) (no (unknown) (unknown) with Boost (units (unk nown) date) drinks. Discussed unknown) continuing to supplement with Boost and eating a Result panel 14 (unknown) (no (unknown) (unknown) (no value) (units (unk nown) date) unknown) (unknown) (no (unknown) (unknown) Assessment and (units (unknown) date) Plan: unknown) (unknown) (no (unknown) (unknown) Qualifiers: (units (un known) date) unknown) (unknown) (no (unknown) (unknown) Status: Acute (units ( unknown) date) unknown) (unknown) (no (unknown) (unknown) (no value) (units (unk nown) date) unknown) (unknown) (no (unknown) (unknown) (no value) (units (unk nown) date) unknown) (unknown) (no (unknown) (unknown) 12/24/21 (units (unkno wn) date) unknown) (unknown) (no (unknown) (unknown) 12/25/21 1257 (units ( unknown) date) unknown) (unknown) (no (unknown) (unknown) 10:27 (units (unkno wn) date) unknown) (unknown) (no (unknown) (unknown) [facility] (units (unknown) date) Medicine unknown) (unknown) (no (unknown) (unknown) [place], [place] (units ( unknown) date) [id number] unknown) (unknown) (no (unknown) (unknown) COPD type: (units (unk nown) date) unspecified COPD unknown) Qualified Code(s): J44.9 - Chronic (unknown) (no (unknown) (unknown) Family [facility] (units (unknown) date) Office Visit unknown) (unknown) (no (unknown) (unknown) Signed (units (unkno wn) date) unknown) (unknown) (no (unknown) (unknown) (no value) (units (unk nown) date) unknown) (unknown) (no (unknown) (unknown) (1) COPD (units (unkno wn) date) (chronic unknown) obstructive pulmonary disease): (unknown) (no (unknown) (unknown) (2) Frequent (units (u nknown) date) falls: unknown) (unknown) (no (unknown) (unknown) (3) Weight loss: (units (unknown) date) unknown) (unknown) (no (unknown) (unknown) [id number] (units (unkno wn) date) unknown) (unknown) (no (unknown) (unknown) 12/24/21 (units (unkno wn) date) unknown) (unknown) (no (unknown) (unknown) 12/24/21] (units (unkn own) date) unknown) (unknown) (no (unknown) (unknown) 1 mo f/u (units (unkno wn) date) unknown) (unknown) (no (unknown) (unknown) Accompanied by: (units (unknown) date) unknown) (unknown) (no (unknown) (unknown) Age/Sex: 86 / M (units (unknown) date) Date of Service: unknown) (unknown) (no (unknown) (unknown) All systems (units (un known) date) reviewed + are unknown) unremarkable except as noted in HPI and below (unknown) (no (unknown) (unknown) Allergies (units (unkn own) date) unknown) (unknown) (no (unknown) (unknown) Anemia (units (unkno wn) date) (08/29/17) unknown) (unknown) (no (unknown) (unknown) Arrhythmia (units (unk nown) date) unknown) (unknown) (no (unknown) (unknown) Assessment + (units (u nknown) date) Plan unknown) (unknown) (no (unknown) (unknown) Atrial (units (unkno wn) date) fibrillation is unknown) well controlled, no new symptoms. (unknown) (no (unknown) (unknown) Atrial (units (unkno wn) date) fibrillation with unknown) rapid ventricular response (05/06/16) (unknown) (no (unknown) (unknown) Attending Dr: (units ( unknown) date) Aditi Saunders MD unknown) (unknown) (no (unknown) (unknown) Auscultation: (units ( unknown) date) clear to unknown) auscultation bilaterally (unknown) (no (unknown) (unknown) BMI 22.1 (units (unkno wn) date) unknown) (unknown) (no (unknown) (unknown) BP 128/58 L (units (un known) date) unknown) (unknown) (no (unknown) (unknown) Blood Pressure (units (unknown) date) Location Lt unknown) brachial (unknown) (no (unknown) (unknown) COPD (chronic (units ( unknown) date) obstructive unknown) pulmonary disease) (unknown) (no (unknown) (unknown) Cardio (units (unkno wn) date) unknown) (unknown) (no (unknown) (unknown) Chief Complaint (units (unknown) date) unknown) (unknown) (no (unknown) (unknown) Chief Complaint: (units (unknown) date) Follow up unknown) (unknown) (no (unknown) (unknown) Confirmed (units (unkn own) date) 12/24/21] unknown) (unknown) (no (unknown) (unknown) Const (units (unkno wn) date) unknown) (unknown) (no (unknown) (unknown) Coronary artery (units (unknown) date) disease involving unknown) coronary bypass graft of [place] heart without (unknown) (no (unknown) (unknown) : 1935 (units (unknown) date) Acct:[id number] unknown) (unknown) (no (unknown) (unknown) Eb is an 86 (units (unknown) date) year old male unknown) with history of COPD, atrial fibrillation and (unknown) (no (unknown) (unknown) Eb is still (units (unknown) date) having falls. He unknown) is currently in physical therapy for this and (unknown) (no (unknown) (unknown) Eb's cough (units (unknown) date) has improved. He unknown) is tolerating Spiriva well and using his (unknown) (no (unknown) (unknown) Eb's weight (units (unknown) date) has remained unknown) stable over the past month. Imaging ordered was not (unknown) (no (unknown) (unknown) Dept at (units (unkno wn) date) . unknown) (unknown) (no (unknown) (unknown) Details: (units (unkno wn) date) unknown) (unknown) (no (unknown) (unknown) Discussed recent (units (unknown) date) chest XR and PFT unknown) results which were unremarkable. Discussed (unknown) (no (unknown) (unknown) Documented By: (units (unknown) date) Aditi Saunders MD unknown) 12/24/21 1020 (unknown) (no (unknown) (unknown) Easy (units (unkno wn) date) bruisability unknown) (unknown) (no (unknown) (unknown) Effort + (units (unkno wn) date) Inspection: unknown) normal respiratory effort and able to speak in complete (unknown) (no (unknown) (unknown) Erectile (units (unkno wn) date) dysfunction unknown) (07/24/16) (unknown) (no (unknown) (unknown) Essential (units (unkn own) date) hypertension unknown) (06/03/16) (unknown) (no (unknown) (unknown) Exam (units (unkno wn) date) unknown) (unknown) (no (unknown) (unknown) Eyes (units (unkno wn) date) unknown) (unknown) (no (unknown) (unknown) Former smoker (units ( unknown) date) unknown) (unknown) (no (unknown) (unknown) GERD (units (unkno wn) date) (gastroesophageal unknown) reflux disease) (unknown) (no (unknown) (unknown) General: (units (unkno wn) date) appearance unknown) normal, both eyes and all related structures (unknown) (no (unknown) (unknown) General: (units (unkno wn) date) cooperative, no unknown) acute distress and well groomed (unknown) (no (unknown) (unknown) HPI (units (unkno wn) date) unknown) (unknown) (no (unknown) (unknown) He has continued (units (unknown) date) to have falls, unknown) 2-3 in the last month. He denies any dizziness, (unknown) (no (unknown) (unknown) He is also (units (unkn own) date) concerned about unknown) his weight loss over the past 3 years. He states that (unknown) (no (unknown) (unknown) He sleeps 16-17 (units (unknown) date) hours/day. He unknown) denies any changes in his mood. He states he is (unknown) (no (unknown) (unknown) He states he (units (u nknown) date) takes his unknown) albuterol when this happens and it provides relief. He (unknown) (no (unknown) (unknown) He states his (units ( unknown) date) cough has unknown) slightly improved. He has a productive cough in the (unknown) (no (unknown) (unknown) Health (units (unkno wn) date) Management unknown) (unknown) (no (unknown) (unknown) Health (units (unkno wn) date) Management unknown) reviewed with patient: Yes (unknown) (no (unknown) (unknown) Heart Sounds: no (units (unknown) date) gallops, no unknown) murmurs and no rubs (unknown) (no (unknown) (unknown) Height 6 ft (units (u nknown) date) unknown) (unknown) (no (unknown) (unknown) Hemorrhagic (units (un known) date) stroke unknown) (unknown) (no (unknown) (unknown) History of (units (unk nown) date) colonoscopy unknown) (unknown) (no (unknown) (unknown) Hx of bilateral (units (unknown) date) cataract unknown) extraction (07/2019) (unknown) (no (unknown) (unknown) Hx of cardiac (units ( unknown) date) cath unknown) (unknown) (no (unknown) (unknown) Hx of heart (units (un known) date) artery stent unknown) (1997) (unknown) (no (unknown) (unknown) I verified the (units (unknown) date) medical student?s unknown) documentation in the medical record. 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 (07/09/17) (unknown) (no (unknown) (unknown) Medical History (units (unknown) date) (Reviewed unknown) 12/10/21 @ 14:36 by Alexandro English RN) (unknown) (no (unknown) (unknown) Medications (units (un known) date) unknown) (unknown) (no (unknown) (unknown) Myocardial (units (unk nown) date) infarction (1995) unknown) (unknown) (no (unknown) (unknown) Neck (units (unkno wn) date) unknown) (unknown) (no (unknown) (unknown) Neck: normal (units (u nknown) date) visual inspection unknown) (unknown) (no (unknown) (unknown) No Known Drug (units ( unknown) date) Allergies Allergy unknown) (Verified 12/24/21 10:26) (unknown) (no (unknown) (unknown) 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 (unknown) (no (unknown) (unknown) Nutritional (units (un known) date) Appearance: thin unknown) (unknown) (no (unknown) (unknown) Orientation: (units (u nknown) date) alert, awake and unknown) oriented x3 (unknown) (no (unknown) (unknown) Oxygen Delivery (units (unknown) date) Method room air unknown) (unknown) (no (unknown) (unknown) PFSH (units (unkno wn) date) unknown) (unknown) (no (unknown) (unknown) Patient: (units (unkno wn) date) Eb Flores unknown) MR#: [id number] (unknown) (no (unknown) (unknown) Percussion: (units (un known) date) percussion normal unknown) (unknown) (no (unknown) (unknown) Plan (units (unkno wn) date) unknown) (unknown) (no (unknown) (unknown) Position Sitting (units (unknown) date) unknown) (unknown) (no (unknown) (unknown) Pulse 61 (units (unkno wn) date) unknown) (unknown) (no (unknown) (unknown) Pulse Oximetry (units (unknown) date) (%) 100 unknown) (unknown) (no (unknown) (unknown) Pulse Source (units (u nknown) date) Monitor unknown) (unknown) (no (unknown) (unknown) ROS (units (unkno wn) date) unknown) (unknown) (no (unknown) (unknown) Rate: regular (units ( unknown) date) rate unknown) (unknown) (no (unknown) (unknown) Reason For Visit (units (unknown) date) unknown) (unknown) (no (unknown) (unknown) Resp (units (unkno wn) date) unknown) (unknown) (no (unknown) (unknown) Respiration 16 (units (unknown) date) unknown) (unknown) (no (unknown) (unknown) Rhythm: abnormal (units (unknown) date) rhythm unknown) irregularly irregular (unknown) (no (unknown) (unknown) 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) unknown) (unknown) (no (unknown) (unknown) Signed By: (units (unk nown) date) <Electronically unknown) signed by Aditi Saunders MD> (unknown) (no (unknown) (unknown) Smoking Status: (units (unknown) date) Former smoker unknown) (unknown) (no (unknown) (unknown) Social History (units (unknown) date) unknown) (unknown) (no (unknown) (unknown) Surgical History (units (unknown) date) (Reviewed unknown) 12/10/21 @ 14:36 by Alexandro English RN) (unknown) (no (unknown) (unknown) Temp 97.3 F L (units ( unknown) date) unknown) (unknown) (no (unknown) (unknown) Temp Source (units (un known) date) Temporal Artery unknown) Scan (unknown) (no (unknown) (unknown) This note may (units ( unknown) date) have been all or unknown) partially generated using voice recognition (unknown) (no (unknown) (unknown) Tobacco + (units (unkn own) date) Substance Use unknown) (unknown) (no (unknown) (unknown) Tobacco Status (units (unknown) date) unknown) (unknown) (no (unknown) (unknown) Visit Reasons: 1 (units (unknown) date) Mo FU unknown) (unknown) (no (unknown) (unknown) Vitals (units (unkno wn) date) unknown) (unknown) (no (unknown) (unknown) Weight 163 lb (units ( unknown) date) unknown) (unknown) (no (unknown) (unknown) [History (units (unkno wn) date) Confirmed unknown) 12/24/21] (unknown) (no (unknown) (unknown) acetaminophen (units ( unknown) date) 500 mg capsule unknown) 500 mg PO Q6H PRN Pain 03/24/18 [History Confirmed (unknown) (no (unknown) (unknown) albuterol as (units (u nknown) date) needed, 1-2x unknown) week. Will continue with current treatment regimen. (unknown) (no (unknown) (unknown) albuterol (units (unkn own) date) sulfate 90 unknown) mcg/actuation breath activated powder inhaler 2 inh (unknown) (no (unknown) (unknown) alcohol intake: (units (unknown) date) current unknown) (unknown) (no (unknown) (unknown) angina pectoris (units (unknown) date) (06/03/16) unknown) (unknown) (no (unknown) (unknown) answered. (units (unkn own) date) unknown) (unknown) (no (unknown) (unknown) answered. Will (units (unknown) date) follow up in 2 unknown) months for a weight check. (unknown) (no (unknown) (unknown) any hemoptysis. (units (unknown) date) He also complains unknown) of a non-productive cough when he is eating (unknown) (no (unknown) (unknown) appropriate (units (unk nown) date) changes to the unknown) documentation and the assessment and plan based on my (unknown) (no (unknown) (unknown) atorvastatin 20 (units (unknown) date) mg tablet 20 mg unknown) PO BEDTIME #90 tabs 04/25/21 [Rx Confirmed (unknown) (no (unknown) (unknown) balanced, (units (unkn own) date) calorie-dense unknown) diet. Patient agrees with plan. All questions were (unknown) (no (unknown) (unknown) caps 08/28/21 (units ( unknown) date) [Rx Confirmed unknown) 12/24/21] (unknown) (no (unknown) (unknown) caregiver/suppor (units (unknown) date) t person: No unknown) (unknown) (no (unknown) (unknown) choking as a (units (u nknown) date) contributing unknown) factor to his cough during lunch time and recommended (unknown) (no (unknown) (unknown) concerning for (units (unknown) date) malignancy. He unknown) has been eating a balanced diet and supplementing (unknown) (no (unknown) (unknown) diclofenac (units (unk nown) date) sodium 1 % unknown) topical gel (Voltaren Arthritis Pain) 4 g topical QID PRN (unknown) (no (unknown) (unknown) diclofenac (units (unk nown) date) sodium 1 % unknown) topical gel 2 g topical QID #100 grams 08/07/20 [Rx (unknown) (no (unknown) (unknown) during other (units (u nknown) date) meal times. His unknown) does note he eats in a 'slumped over' (unknown) (no (unknown) (unknown) everyday. He has (units (unknown) date) been eating a unknown) generally balanced diet and drinking Boost (unknown) (no (unknown) (unknown) fluoxetine 20 mg (units (unknown) date) capsule 20 mg PO unknown) DAILY #90 caps 06/26/21 [Rx Confirmed (unknown) (no (unknown) (unknown) has no recent (units ( unknown) date) health changes or unknown) concerns. (unknown) (no (unknown) (unknown) have occurred. (units (unknown) date) If there are any unknown) questions, please contact the Medical Records (unknown) (no (unknown) (unknown) he eat slower (units ( unknown) date) and sit upright unknown) while eating. Discussed ordering a swallow study (unknown) (no (unknown) (unknown) headaches, light (units (unknown) date) headedness or unknown) near syncopy. He does endorse some balance issues (unknown) (no (unknown) (unknown) his weight has (units (unknown) date) been steady over unknown) the past month and notes he weighs himself (unknown) (no (unknown) (unknown) household (units (unkn own) date) members: spouse unknown) (unknown) (no (unknown) (unknown) housing: house (units (unknown) date) unknown) (unknown) (no (unknown) (unknown) hypertension (units (u nknown) date) here for follow unknown) up. (unknown) (no (unknown) (unknown) if symptoms (units (un known) date) persist or unknown) worsen. Patient agrees with plan. All questions were (unknown) (no (unknown) (unknown) inh inhalation (units (unknown) date) QAM #12 grams unknown) 12/12/21 [Rx Confirmed 12/24/21] (unknown) (no (unknown) (unknown) inhalation Q4H (units (unknown) date) PRN shortness of unknown) breath or wheezing #1 ea 11/12/21 [Rx Confirmed (unknown) (no (unknown) (unknown) lives (units (unkno wn) date) independently: unknown) Yes (unknown) (no (unknown) (unknown) losartan 100 mg (units (unknown) date) tablet 100 mg PO unknown) BEDTIME BP #90 tabs 07/24/20 [Rx Confirmed (unknown) (no (unknown) (unknown) lunch, that he (units (unknown) date) describes as unknown) 'feeling like he is trying to cough something up.' (unknown) (no (unknown) (unknown) marital status: (units (unknown) date) unknown) (unknown) (no (unknown) (unknown) may occur. (units (unk nown) date) Occasional unknown) wrong-word or 'sound-alike' substitutions may have (unknown) (no (unknown) (unknown) metoprolol (units (unk nown) date) tartrate 50 mg unknown) tablet 50 mg PO BID #180 tabs 11/23/21 [Rx Confirmed (unknown) (no (unknown) (unknown) morning for which (units (unknown) date) he takes his unknown) Spiriva. He states it produces phlegm, and denies (unknown) (no (unknown) (unknown) number of (units (unkn own) date) children: 2 unknown) (unknown) (no (unknown) (unknown) obstructive (units (un known) date) pulmonary unknown) disease, unspecified (unknown) (no (unknown) (unknown) occurred due to (units (unknown) date) the inherent unknown) limitations of voice recognition software. Please (unknown) (no (unknown) (unknown) omeprazole 40 mg (units (unknown) date) capsule,delayed unknown) release See Rx Instructions .Route .COMPLEX #90 (unknown) (no (unknown) (unknown) pain #100 grams (units (unknown) date) 08/30/21 [Rx unknown) Confirmed 12/24/21] (unknown) (no (unknown) (unknown) personally (units (unk nown) date) performed a unknown) physical exam and medical decision making. I made (unknown) (no (unknown) (unknown) placebo vs (units (unk nown) date) aspirin .Route unknown) 04/11/20 [History Confirmed 12/24/21] (unknown) (no (unknown) (unknown) position. He has (units (unknown) date) not had any chest unknown) pain, palpitations, fever, chills, or (unknown) (no (unknown) (unknown) pt is ok with (units ( unknown) date) student unknown) (unknown) (no (unknown) (unknown) read the note (units ( unknown) date) carefully and unknown) recognize, using context, where these substitutions (unknown) (no (unknown) (unknown) removal that was (units (unknown) date) canceled and he unknown) is interested in re-scheduling. (unknown) (no (unknown) (unknown) rivaroxaban 20 (units (unknown) date) mg tablet unknown) (Xarelto) 20 mg PO QPM #90 tabs 05/16/20 [Rx Confirmed (unknown) (no (unknown) (unknown) second hand (units (un known) date) exposure: No unknown) (unknown) (no (unknown) (unknown) sentences (units (unkn own) date) unknown) (unknown) (no (unknown) (unknown) shortness of (units (u nknown) date) breath. unknown) (unknown) (no (unknown) (unknown) should also help (units (unknown) date) with his balance. unknown) Patient agrees with plan. All questions were (unknown) (no (unknown) (unknown) software. 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 He otherwise (unknown) (no (unknown) (unknown) substance use (units ( unknown) date) type: does not unknown) use (unknown) (no (unknown) (unknown) supplements (units (un known) date) intermittently. unknown) (unknown) (no (unknown) (unknown) tadalafil 10 mg (units (unknown) date) tablet (Cialis) unknown) 10 mg PO PRN PRN Sexual Activity 11/05/19 (unknown) (no (unknown) (unknown) that he is going (units (unknown) date) to physical unknown) therapy for. He also had an appointment for ear wax (unknown) (no (unknown) (unknown) tiotropium (units (unk nown) date) bromide 2.5 unknown) mcg/actuation mist for inhalation (Spiriva Respimat) 2 (unknown) (no (unknown) (unknown) verification, (units ( unknown) date) exam and medical unknown) decision making. (unknown) (no (unknown) (unknown) will continue (units ( unknown) date) attending. Will unknown) schedule an appointment for ear wax removal which (unknown) (no (unknown) (unknown) with Boost (units (unk nown) date) drinks. Discussed unknown) continuing to supplement with Boost and eating a Result panel 15 (unknown) (no (unknown) (unknown) (no value) (units (unk nown) date) unknown) (unknown) (no (unknown) (unknown) Code(s): (units (unkno wn) date) unknown) (unknown) (no (unknown) (unknown) (no value) (units (unk nown) date) unknown) (unknown) (no (unknown) (unknown) [facility] (units (unknown) date) Medicine unknown) (unknown) (no (unknown) (unknown) [place] (units ( unknown) date) [id number] unknown) (unknown) (no (unknown) (unknown) Draft (units (unkno wn) date) unknown) (unknown) (no (unknown) (unknown) Nurse Office (units (u nknown) date) Visit unknown) (unknown) (no (unknown) (unknown) (no value) (units (unk nown) date) unknown) (unknown) (no (unknown) (unknown) (1) Cerumen (units (un known) date) impaction: unknown) (unknown) (no (unknown) (unknown) COVID-19 (units (u nknown) date) unknown) (unknown) (no (unknown) (unknown) [id number] (units (unkno wn) date) unknown) (unknown) (no (unknown) (unknown) 01/10/22 (units (unkno wn) date) unknown) (unknown) (no (unknown) (unknown) Age/Sex: 86 / M (units (unknown) date) Date of Service: unknown) (unknown) (no (unknown) (unknown) Allergies (units (unkn own) date) unknown) (unknown) (no (unknown) (unknown) Attending Dr: (units ( unknown) date) Yury Berger MD unknown) (unknown) (no (unknown) (unknown) : 1935 (units (unknown) date) Acct:[id number] unknown) (unknown) (no (unknown) (unknown) Eb is here (units (unknown) date) to have his ears unknown) washed out. He needs to be fitted for new (unknown) (no (unknown) (unknown) Dept at (units (unkno wn) date) . unknown) (unknown) (no (unknown) (unknown) Documented By: (units (unknown) date) Yury Berger MD unknown) 01/10/22 1246 (unknown) (no (unknown) (unknown) Evaluation/Scree (units (unknown) date) magali for possible unknown) COVID-19 completed?: No (unknown) (no (unknown) (unknown) H61.20 - (units (unkno wn) date) Impacted cerumen, unknown) unspecified ear (unknown) (no (unknown) (unknown) Intake (units (unkno wn) date) unknown) (unknown) (no (unknown) (unknown) Intake Note: (units (u nknown) date) unknown) (unknown) (no (unknown) (unknown) Intake performed (units (unknown) date) by: Dago Guerra unknown) (unknown) (no (unknown) (unknown) Intake- Clincial (units (unknown) date) Staff unknown) (unknown) (no (unknown) (unknown) Loc: [facility] (units (unkno wn) date) unknown) (unknown) (no (unknown) (unknown) No Known Drug (units ( unknown) date) Allergies Allergy unknown) (Verified 12/24/21 10:26) (unknown) (no (unknown) (unknown) Note (units (unkno wn) date) unknown) (unknown) (no (unknown) (unknown) Patient: (units (unkno wn) date) Eb Flores unknown) MR#: [id number] (unknown) (no (unknown) (unknown) Reason For Visit (units (unknown) date) unknown) (unknown) (no (unknown) (unknown) Signed By: (units (unk nown) date) unknown) (unknown) (no (unknown) (unknown) Smoking Status: (units (unknown) date) Former smoker unknown) (unknown) (no (unknown) (unknown) This note may (units ( unknown) date) have been all or unknown) partially generated using voice recognition (unknown) (no (unknown) (unknown) Tobacco Status (units (unknown) date) unknown) (unknown) (no (unknown) (unknown) Visit Diagnosis (units (unknown) date) unknown) (unknown) (no (unknown) (unknown) Visit Reasons: (units (unknown) date) ear flush unknown) (unknown) (no (unknown) (unknown) have occurred. (units (unknown) date) If there are any unknown) questions, please contact the Medical Records (unknown) (no (unknown) (unknown) hearing aids and (units (unknown) date) they always want unknown) his ears clean befor hand. (unknown) (no (unknown) (unknown) may occur. (units (unk nown) date) Occasional unknown) wrong-word or 'sound-alike' substitutions may have (unknown) (no (unknown) (unknown) occurred due to (units (unknown) date) the inherent unknown) limitations of voice recognition software. Please (unknown) (no (unknown) (unknown) read the note (units ( unknown) date) carefully and unknown) recognize, using context, where these substitutions (unknown) (no (unknown) (unknown) software. 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 Result panel 16 (unknown) (no (unknown) (unknown) (no value) (units (unk nown) date) unknown) (unknown) (no (unknown) (unknown) Code(s): (units (unkno wn) date) unknown) (unknown) (no (unknown) (unknown) (no value) (units (unk nown) date) unknown) (unknown) (no (unknown) (unknown) [facility] (units (unknown) date) Medicine unknown) (unknown) (no (unknown) (unknown) [place], [place] (units ( unknown) date) [id number] unknown) (unknown) (no (unknown) (unknown) Draft (units (unkno wn) date) unknown) (unknown) (no (unknown) (unknown) Nurse Office (units (u nknown) date) Visit unknown) (unknown) (no (unknown) (unknown) (no value) (units (unk nown) date) unknown) (unknown) (no (unknown) (unknown) (1) Cerumen (units (un known) date) impaction: unknown) (unknown) (no (unknown) (unknown) COVID-19 (units (u nknown) date) unknown) (unknown) (no (unknown) (unknown) [id number] (units (unkno wn) date) unknown) (unknown) (no (unknown) (unknown) 01/10/22 (units (unkno wn) date) unknown) (unknown) (no (unknown) (unknown) Age/Sex: 86 / M (units (unknown) date) Date of Service: unknown) (unknown) (no (unknown) (unknown) Allergies (units (unkn own) date) unknown) (unknown) (no (unknown) (unknown) Attending Dr: (units ( unknown) date) Yury Berger MD unknown) (unknown) (no (unknown) (unknown) Billing- Cerumen (units (unknown) date) Removal: Cerumen unknown) Removal- [id number] (unknown) (no (unknown) (unknown) Cerumen Removal (units (unknown) date) Location: unknown) bilateral (unknown) (no (unknown) (unknown) Cerumen Removal (units (unknown) date) Notes: unknown) (unknown) (no (unknown) (unknown) : 1935 (units (unknown) date) Acct:[id number] unknown) (unknown) (no (unknown) (unknown) Eb is here (units (unknown) date) to have his ears unknown) washed out. He needs to be fitted for new (unknown) (no (unknown) (unknown) Dept at (units (unkno wn) date) . unknown) (unknown) (no (unknown) (unknown) Documented By: (units (unknown) date) Yury Berger MD unknown) 01/10/22 1246 (unknown) (no (unknown) (unknown) Evaluation/Scree (units (unknown) date) magali for possible unknown) COVID-19 completed?: No (unknown) (no (unknown) (unknown) H61.20 - (units (unkno wn) date) Impacted cerumen, unknown) unspecified ear (unknown) (no (unknown) (unknown) I had to use the (units (unknown) date) little alligator unknown) forceps with the long handle to grab onto the (unknown) (no (unknown) (unknown) Intake (units (unkno wn) date) unknown) (unknown) (no (unknown) (unknown) Intake Note: (units (u nknown) date) unknown) (unknown) (no (unknown) (unknown) Intake performed (units (unknown) date) by: Dago Guerra unknown) (unknown) (no (unknown) (unknown) Intake- Clincial (units (unknown) date) Staff unknown) (unknown) (no (unknown) (unknown) Loc: [facility] (units (unkno wn) date) unknown) (unknown) (no (unknown) (unknown) Method of (units (unkn own) date) removal: Cerum unknown) Loop/Spoon/Curett e and Irrigation (unknown) (no (unknown) (unknown) No Known Drug (units ( unknown) date) Allergies Allergy unknown) (Verified 07/25/22 10:26) (unknown) (no (unknown) (unknown) Note (units (unkno wn) date) unknown) (unknown) (no (unknown) (unknown) Office (units (unkno wn) date) Procedures unknown) (unknown) (no (unknown) (unknown) Patient: (units (unkno wn) date) Eb Flores unknown) MR#: [id number] (unknown) (no (unknown) (unknown) Reason For Visit (units (unknown) date) unknown) (unknown) (no (unknown) (unknown) Signed By: (units (unk nown) date) unknown) (unknown) (no (unknown) (unknown) Smoking Status: (units (unknown) date) Former smoker unknown) (unknown) (no (unknown) (unknown) This note may (units ( unknown) date) have been all or unknown) partially generated using voice recognition (unknown) (no (unknown) (unknown) Tobacco Status (units (unknown) date) unknown) (unknown) (no (unknown) (unknown) Visit Diagnosis (units (unknown) date) unknown) (unknown) (no (unknown) (unknown) Visit Reasons: (units (unknown) date) ear flush unknown) (unknown) (no (unknown) (unknown) doesn't feel he (units (unknown) date) got any wac out unknown) with a shower and the Debroxx. (unknown) (no (unknown) (unknown) ear canal for (units ( unknown) date) several miutes, unknown) attempted to remove the wax with the alligator (unknown) (no (unknown) (unknown) forceps and the (units (unknown) date) loop currette unknown) without success. I advised Eb to use [facility] at (unknown) (no (unknown) (unknown) have occurred. (units (unknown) date) If there are any unknown) questions, please contact the Medical Records (unknown) (no (unknown) (unknown) hearing aids and (units (unknown) date) they always want unknown) his ears clean befor hand. (unknown) (no (unknown) (unknown) home at night (units ( unknown) date) until next Tu, unknown) then call me for an appt on and if he (unknown) (no (unknown) (unknown) may occur. (units (unk nown) date) Occasional unknown) wrong-word or 'sound-alike' substitutions may have (unknown) (no (unknown) (unknown) occurred due to (units (unknown) date) the inherent unknown) limitations of voice recognition software. Please (unknown) (no (unknown) (unknown) read the note (units ( unknown) date) carefully and unknown) recognize, using context, where these substitutions (unknown) (no (unknown) (unknown) software. 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 I irrigated the left Result panel 17 (unknown) (no (unknown) (unknown) (no value) (units (unk nown) date) unknown) (unknown) (no (unknown) (unknown) Code(s): (units (unkno wn) date) unknown) (unknown) (no (unknown) (unknown) (no value) (units (unk nown) date) unknown) (unknown) (no (unknown) (unknown) 01/11/22 0743 (units ( unknown) date) unknown) (unknown) (no (unknown) (unknown) [facility] (units (unknown) date) Medicine unknown) (unknown) (no (unknown) (unknown) [place], [place] (units ( unknown) date) [id number] unknown) (unknown) (no (unknown) (unknown) Nurse Office (units (u nknown) date) Visit unknown) (unknown) (no (unknown) (unknown) Signed (units (unkno wn) date) unknown) (unknown) (no (unknown) (unknown) (no value) (units (unk nown) date) unknown) (unknown) (no (unknown) (unknown) (1) Cerumen (units (un known) date) impaction: unknown) (unknown) (no (unknown) (unknown) COVID-19 (units (u nknown) date) unknown) (unknown) (no (unknown) (unknown) [id number] (units (unkno wn) date) unknown) (unknown) (no (unknown) (unknown) 01/10/22 (units (unkno wn) date) unknown) (unknown) (no (unknown) (unknown) Age/Sex: 86 / M (units (unknown) date) Date of Service: unknown) (unknown) (no (unknown) (unknown) Allergies (units (unkn own) date) unknown) (unknown) (no (unknown) (unknown) Attending Dr: (units ( unknown) date) Yury Berger MD unknown) (unknown) (no (unknown) (unknown) Billing- Cerumen (units (unknown) date) Removal: Cerumen unknown) Removal- [phone] (unknown) (no (unknown) (unknown) Cerumen Removal (units (unknown) date) Location: unknown) bilateral (unknown) (no (unknown) (unknown) Cerumen Removal (units (unknown) date) Notes: unknown) (unknown) (no (unknown) (unknown) : 1935 (units (unknown) date) Acct:[id number] unknown) (unknown) (no (unknown) (unknown) Eb is here (units (unknown) date) to have his ears unknown) washed out. He needs to be fitted for new (unknown) (no (unknown) (unknown) Dept at (units (unkno wn) date) . unknown) (unknown) (no (unknown) (unknown) Documented By: (units (unknown) date) Yury Berger MD unknown) 01/10/22 1246 (unknown) (no (unknown) (unknown) Evaluation/Scree (units (unknown) date) magali for possible unknown) COVID-19 completed?: No (unknown) (no (unknown) (unknown) H61.20 - (units (unkno wn) date) Impacted cerumen, unknown) unspecified ear (unknown) (no (unknown) (unknown) I had to use the (units (unknown) date) little alligator unknown) forceps with the long handle to grab onto the (unknown) (no (unknown) (unknown) Intake (units (unkno wn) date) unknown) (unknown) (no (unknown) (unknown) Intake Note: (units (u nknown) date) unknown) (unknown) (no (unknown) (unknown) Intake performed (units (unknown) date) by: Dago Guerra unknown) (unknown) (no (unknown) (unknown) Intake- Clincial (units (unknown) date) Staff unknown) (unknown) (no (unknown) (unknown) Loc: [facility] (units (unkno wn) date) unknown) (unknown) (no (unknown) (unknown) Method of (units (unkn own) date) removal: Cerum unknown) Loop/Spoon/Curett e and Irrigation (unknown) (no (unknown) (unknown) No Known Drug (units ( unknown) date) Allergies Allergy unknown) (Verified 12/24/21 10:26) (unknown) (no (unknown) (unknown) Note (units (unkno wn) date) unknown) (unknown) (no (unknown) (unknown) Office (units (unkno wn) date) Procedures unknown) (unknown) (no (unknown) (unknown) Patient: (units (unkno wn) date) Eb Flores unknown) MR#: [id number] (unknown) (no (unknown) (unknown) Reason For Visit (units (unknown) date) unknown) (unknown) (no (unknown) (unknown) Signed By: (units (unk nown) date) <Electronically unknown) signed by Yury Berger MD> (unknown) (no (unknown) (unknown) Smoking Status: (units (unknown) date) Former smoker unknown) (unknown) (no (unknown) (unknown) This note may (units ( unknown) date) have been all or unknown) partially generated using voice recognition (unknown) (no (unknown) (unknown) Tobacco Status (units (unknown) date) unknown) (unknown) (no (unknown) (unknown) Visit Diagnosis (units (unknown) date) unknown) (unknown) (no (unknown) (unknown) Visit Reasons: (units (unknown) date) ear flush unknown) (unknown) (no (unknown) (unknown) doesn't feel he (units (unknown) date) got any wac out unknown) with a shower and the Debroxx. (unknown) (no (unknown) (unknown) ear canal for (units ( unknown) date) several miutes, unknown) attempted to remove the wax with the alligator (unknown) (no (unknown) (unknown) forceps and the (units (unknown) date) loop currette unknown) without success. I advised Eb to use [facility] at (unknown) (no (unknown) (unknown) have occurred. (units (unknown) date) If there are any unknown) questions, please contact the Medical Records (unknown) (no (unknown) (unknown) hearing aids and (units (unknown) date) they always want unknown) his ears clean befor hand. (unknown) (no (unknown) (unknown) home at night (units ( unknown) date) until next , unknown) then call me for an appt on and if he (unknown) (no (unknown) (unknown) may occur. (units (unk nown) date) Occasional unknown) wrong-word or 'sound-alike' substitutions may have (unknown) (no (unknown) (unknown) occurred due to (units (unknown) date) the inherent unknown) limitations of voice recognition software. Please (unknown) (no (unknown) (unknown) read the note (units ( unknown) date) carefully and unknown) recognize, using context, where these substitutions (unknown) (no (unknown) (unknown) software. 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 I irrigated the left Result panel 18 (unknown) (no (unknown) (unknown) (no value) (units (unk nown) date) unknown) (unknown) (no (unknown) (unknown) (no value) (units (unk nown) date) unknown) (unknown) (no (unknown) (unknown) [facility] (units (unknown) date) Medicine unknown) (unknown) (no (unknown) (unknown) [place], [place] (units ( unknown) date) [id number] unknown) (unknown) (no (unknown) (unknown) Draft (units (unkno wn) date) unknown) (unknown) (no (unknown) (unknown) Nurse Office (units (u nknown) date) Visit unknown) (unknown) (no (unknown) (unknown) (no value) (units (unk nown) date) unknown) (unknown) (no (unknown) (unknown) COVID-19 (units (u nknown) date) unknown) (unknown) (no (unknown) (unknown) [id number] (units (unkno wn) date) unknown) (unknown) (no (unknown) (unknown) 01/17/22 (units (unkno wn) date) unknown) (unknown) (no (unknown) (unknown) Age/Sex: 86 / M (units (unknown) date) Date of Service: unknown) (unknown) (no (unknown) (unknown) Allergies (units (unkn own) date) unknown) (unknown) (no (unknown) (unknown) Attending Dr: (units ( unknown) date) Aditi Saunders MD unknown) (unknown) (no (unknown) (unknown) : 1935 (units (unknown) date) Acct:[id number] unknown) (unknown) (no (unknown) (unknown) Dept at (units (unkno wn) date) . unknown) (unknown) (no (unknown) (unknown) Documented By: (units (unknown) date) Aditi Saunders MD unknown) 01/17/22 1738 (unknown) (no (unknown) (unknown) Evaluation/Scree (units (unknown) date) magali for possible unknown) COVID-19 completed?: No (unknown) (no (unknown) (unknown) Intake (units (unkno wn) date) unknown) (unknown) (no (unknown) (unknown) Loc: [facility] (units (unkno wn) date) unknown) (unknown) (no (unknown) (unknown) No Known Drug (units ( unknown) date) Allergies Allergy unknown) (Verified 12/24/21 10:26) (unknown) (no (unknown) (unknown) Note (units (unkno wn) date) unknown) (unknown) (no (unknown) (unknown) Patient: (units (unkno wn) date) Eb Flores unknown) MR#: [id number] (unknown) (no (unknown) (unknown) Reason For Visit (units (unknown) date) unknown) (unknown) (no (unknown) (unknown) Signed By: (units (unk nown) date) unknown) (unknown) (no (unknown) (unknown) Smoking Status: (units (unknown) date) Former smoker unknown) (unknown) (no (unknown) (unknown) This note may (units ( unknown) date) have been all or unknown) partially generated using voice recognition (unknown) (no (unknown) (unknown) Tobacco Status (units (unknown) date) unknown) (unknown) (no (unknown) (unknown) Visit Reasons: L (units (unknown) date) ear check/flush unknown) (unknown) (no (unknown) (unknown) have occurred. (units (unknown) date) If there are any unknown) questions, please contact the Medical Records (unknown) (no (unknown) (unknown) may occur. (units (unk nown) date) Occasional unknown) wrong-word or 'sound-alike' substitutions may have (unknown) (no (unknown) (unknown) occurred due to (units (unknown) date) the inherent unknown) limitations of voice recognition software. Please (unknown) (no (unknown) (unknown) read the note (units ( unknown) date) carefully and unknown) recognize, using context, where these substitutions (unknown) (no (unknown) (unknown) software. 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 Result panel 19 (unknown) (no (unknown) (unknown) (no value) (units (unk nown) date) unknown) (unknown) (no (unknown) (unknown) Code(s): (units (unkno wn) date) unknown) (unknown) (no (unknown) (unknown) (no value) (units (unk nown) date) unknown) (unknown) (no (unknown) (unknown) [facility] (units (unknown) date) Medicine unknown) (unknown) (no (unknown) (unknown) [place] (units ( unknown) date) [id number] unknown) (unknown) (no (unknown) (unknown) Draft (units (unkno wn) date) unknown) (unknown) (no (unknown) (unknown) Nurse Office (units (u nknown) date) Visit unknown) (unknown) (no (unknown) (unknown) (no value) (units (unk nown) date) unknown) (unknown) (no (unknown) (unknown) (1) Impacted (units (u nknown) date) cerumen of left unknown) ear: (unknown) (no (unknown) (unknown) COVID-19 (units (u nknown) date) unknown) (unknown) (no (unknown) (unknown) [id number] (units (unkno wn) date) unknown) (unknown) (no (unknown) (unknown) 01/17/22 (units (unkno wn) date) unknown) (unknown) (no (unknown) (unknown) Age/Sex: 86 / M (units (unknown) date) Date of Service: unknown) (unknown) (no (unknown) (unknown) Allergies (units (unkn own) date) unknown) (unknown) (no (unknown) (unknown) Attending Dr: (units ( unknown) date) Aditi Saunders MD unknown) (unknown) (no (unknown) (unknown) Billing- Cerumen (units (unknown) date) Removal: Cerumen unknown) Removal- [phone] (unknown) (no (unknown) (unknown) Cerumen Removal (units (unknown) date) Location: left unknown) (unknown) (no (unknown) (unknown) Cerumen Removal (units (unknown) date) Notes: unknown) (unknown) (no (unknown) (unknown) Complications: (units (unknown) date) none unknown) (unknown) (no (unknown) (unknown) : 1935 (units (unknown) date) Acct:[id number] unknown) (unknown) (no (unknown) (unknown) Eb is here (units (unknown) date) to have his Left unknown) ear looked at to see if the wax came out after (unknown) (no (unknown) (unknown) Eb was here (units (unknown) date) last week to have unknown) his cerumen removed from both ear canals. The (unknown) (no (unknown) (unknown) Dept at (units (unkno wn) date) . unknown) (unknown) (no (unknown) (unknown) Documented By: (units (unknown) date) Aditi Saunders MD unknown) 01/17/22 1738 (unknown) (no (unknown) (unknown) Evaluation/Scree (units (unknown) date) magali for possible unknown) COVID-19 completed?: No (unknown) (no (unknown) (unknown) H61.22 - (units (unkno wn) date) Impacted cerumen, unknown) left ear (unknown) (no (unknown) (unknown) Intake (units (unkno wn) date) unknown) (unknown) (no (unknown) (unknown) Intake Note: (units (u nknown) date) unknown) (unknown) (no (unknown) (unknown) Intake performed (units (unknown) date) by: Dago Guerra unknown) (unknown) (no (unknown) (unknown) Intake- Clincial (units (unknown) date) Staff unknown) (unknown) (no (unknown) (unknown) Loc: [facility] (units (unkno wn) date) unknown) (unknown) (no (unknown) (unknown) Method of (units (unkn own) date) removal: Cerum unknown) Loop/Spoon/Curett e, Irrigation and Other (unknown) (no (unknown) (unknown) No Known Drug (units ( unknown) date) Allergies Allergy unknown) (Verified 12/24/21 10:26) (unknown) (no (unknown) (unknown) Note (units (unkno wn) date) unknown) (unknown) (no (unknown) (unknown) Note: (units (unkno wn) date) unknown) (unknown) (no (unknown) (unknown) Office (units (unkno wn) date) Procedures unknown) (unknown) (no (unknown) (unknown) Patient: (units (unkno wn) date) Eb Flores unknown) MR#: [id number] (unknown) (no (unknown) (unknown) Reason For Visit (units (unknown) date) unknown) (unknown) (no (unknown) (unknown) Signed By: (units (unk nown) date) unknown) (unknown) (no (unknown) (unknown) Smoking Status: (units (unknown) date) Former smoker unknown) (unknown) (no (unknown) (unknown) This note may (units ( unknown) date) have been all or unknown) partially generated using voice recognition (unknown) (no (unknown) (unknown) Tobacco Status (units (unknown) date) unknown) (unknown) (no (unknown) (unknown) Visit Diagnosis (units (unknown) date) unknown) (unknown) (no (unknown) (unknown) Visit Reasons: L (units (unknown) date) ear check/flush unknown) (unknown) (no (unknown) (unknown) alligator (units (unkn own) date) farceps to pluck unknown) it out. The ear canal is clean without any signs of (unknown) (no (unknown) (unknown) ear. I washed it (units (unknown) date) out with unknown) Hydrof=gen peroxide and Warm water and used the ear (unknown) (no (unknown) (unknown) have occurred. (units (unknown) date) If there are any unknown) questions, please contact the Medical Records (unknown) (no (unknown) (unknown) irritation or (units ( unknown) date) abrasion. unknown) (unknown) (no (unknown) (unknown) may occur. (units (unk nown) date) Occasional unknown) wrong-word or 'sound-alike' substitutions may have (unknown) (no (unknown) (unknown) not sure if it (units (unknown) date) has come out or unknown) not. There is still some cerumen in the left (unknown) (no (unknown) (unknown) occurred due to (units (unknown) date) the inherent unknown) limitations of voice recognition software. Please (unknown) (no (unknown) (unknown) read the note (units ( unknown) date) carefully and unknown) recognize, using context, where these substitutions (unknown) (no (unknown) (unknown) right one was (units ( unknown) date) cleared. He has unknown) been using debrox since last week at bedtime and (unknown) (no (unknown) (unknown) see CN (units (unkno wn) date) unknown) (unknown) (no (unknown) (unknown) software. 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 He is (unknown) (no (unknown) (unknown) using Debrox and (units (unknown) date) the water from unknown) the shower. Result panel 20 (unknown) (no (unknown) (unknown) (no value) (units (unk nown) date) unknown) (unknown) (no (unknown) (unknown) Code(s): (units (unkno wn) date) unknown) (unknown) (no (unknown) (unknown) (no value) (units (unk nown) date) unknown) (unknown) (no (unknown) (unknown) 01/21/22 0749 (units ( unknown) date) unknown) (unknown) (no (unknown) (unknown) [facility] (units (unknown) date) Medicine unknown) (unknown) (no (unknown) (unknown) [place] (units ( unknown) date) [id number] unknown) (unknown) (no (unknown) (unknown) Nurse Office (units (u nknown) date) Visit unknown) (unknown) (no (unknown) (unknown) Signed (units (unkno wn) date) unknown) (unknown) (no (unknown) (unknown) (no value) (units (unk nown) date) unknown) (unknown) (no (unknown) (unknown) (1) Impacted (units (u nknown) date) cerumen of left unknown) ear: (unknown) (no (unknown) (unknown) COVID-19 (units (u nknown) date) unknown) (unknown) (no (unknown) (unknown) [id number] (units (unkno wn) date) unknown) (unknown) (no (unknown) (unknown) 01/17/22 (units (unkno wn) date) unknown) (unknown) (no (unknown) (unknown) Age/Sex: 86 / M (units (unknown) date) Date of Service: unknown) (unknown) (no (unknown) (unknown) Allergies (units (unkn own) date) unknown) (unknown) (no (unknown) (unknown) Attending Dr: (units ( unknown) date) Aditi Saunders MD unknown) (unknown) (no (unknown) (unknown) Billing- Cerumen (units (unknown) date) Removal: Cerumen unknown) Removal- [id number] (unknown) (no (unknown) (unknown) Cerumen Removal (units (unknown) date) Location: left unknown) (unknown) (no (unknown) (unknown) Cerumen Removal (units (unknown) date) Notes: unknown) (unknown) (no (unknown) (unknown) Complications: (units (unknown) date) none unknown) (unknown) (no (unknown) (unknown) : 1935 (units (unknown) date) Acct:[id number] unknown) (unknown) (no (unknown) (unknown) Eb is here (units (unknown) date) to have his Left unknown) ear looked at to see if the wax came out after (unknown) (no (unknown) (unknown) Eb was here (units (unknown) date) last week to have unknown) his cerumen removed from both ear canals. The (unknown) (no (unknown) (unknown) Dept at (units (unkno wn) date) . unknown) (unknown) (no (unknown) (unknown) Documented By: (units (unknown) date) Aditi Saunders MD unknown) 01/17/22 1738 (unknown) (no (unknown) (unknown) Evaluation/Scree (units (unknown) date) magali for possible unknown) COVID-19 completed?: No (unknown) (no (unknown) (unknown) H61.22 - (units (unkno wn) date) Impacted cerumen, unknown) left ear (unknown) (no (unknown) (unknown) Intake (units (unkno wn) date) unknown) (unknown) (no (unknown) (unknown) Intake Note: (units (u nknown) date) unknown) (unknown) (no (unknown) (unknown) Intake performed (units (unknown) date) by: Dago Guerra unknown) (unknown) (no (unknown) (unknown) Intake- Clincial (units (unknown) date) Staff unknown) (unknown) (no (unknown) (unknown) Loc: [facility] (units (unkno wn) date) unknown) (unknown) (no (unknown) (unknown) Method of (units (unkn own) date) removal: Cerum unknown) Loop/Spoon/Curett e, Irrigation and Other (unknown) (no (unknown) (unknown) No Known Drug (units ( unknown) date) Allergies Allergy unknown) (Verified 12/24/21 10:26) (unknown) (no (unknown) (unknown) Note (units (unkno wn) date) unknown) (unknown) (no (unknown) (unknown) Note: (units (unkno wn) date) unknown) (unknown) (no (unknown) (unknown) Office (units (unkno wn) date) Procedures unknown) (unknown) (no (unknown) (unknown) Patient: (units (unkno wn) date) Eb Flores unknown) MR#: [id number] (unknown) (no (unknown) (unknown) Reason For Visit (units (unknown) date) unknown) (unknown) (no (unknown) (unknown) Signed By: (units (unk nown) date) <Electronically unknown) signed by Aditi Saunders MD> (unknown) (no (unknown) (unknown) Smoking Status: (units (unknown) date) Former smoker unknown) (unknown) (no (unknown) (unknown) This note may (units ( unknown) date) have been all or unknown) partially generated using voice recognition (unknown) (no (unknown) (unknown) Tobacco Status (units (unknown) date) unknown) (unknown) (no (unknown) (unknown) Visit Diagnosis (units (unknown) date) unknown) (unknown) (no (unknown) (unknown) Visit Reasons: L (units (unknown) date) ear check/flush unknown) (unknown) (no (unknown) (unknown) alligator (units (unkn own) date) farceps to pluck unknown) it out. The ear canal is clean without any signs of (unknown) (no (unknown) (unknown) ear. I washed it (units (unknown) date) out with unknown) Hydrof=gen peroxide and Warm water and used the ear (unknown) (no (unknown) (unknown) have occurred. (units (unknown) date) If there are any unknown) questions, please contact the Medical Records (unknown) (no (unknown) (unknown) irritation or (units ( unknown) date) abrasion. unknown) (unknown) (no (unknown) (unknown) may occur. (units (unk nown) date) Occasional unknown) wrong-word or 'sound-alike' substitutions may have (unknown) (no (unknown) (unknown) not sure if it (units (unknown) date) has come out or unknown) not. There is still some cerumen in the left (unknown) (no (unknown) (unknown) occurred due to (units (unknown) date) the inherent unknown) limitations of voice recognition software. Please (unknown) (no (unknown) (unknown) read the note (units ( unknown) date) carefully and unknown) recognize, using context, where these substitutions (unknown) (no (unknown) (unknown) right one was (units ( unknown) date) cleared. He has unknown) been using debrox since last week at bedtime and (unknown) (no (unknown) (unknown) see CN (units (unkno wn) date) unknown) (unknown) (no (unknown) (unknown) software. 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 He is (unknown) (no (unknown) (unknown) using Debrox and (units (unknown) date) the water from unknown) the shower. Result panel 21 (unknown) (no (unknown) (unknown) (no value) (units (unk nown) date) unknown) (unknown) (no (unknown) (unknown) COVID-19 (units (u nknown) date) unknown) (unknown) (no (unknown) (unknown) [id number] (units (unkno wn) date) unknown) (unknown) (no (unknown) (unknown) 02/06/22 (units (unkno wn) date) unknown) (unknown) (no (unknown) (unknown) Age/Sex: 86 / M (units (unknown) date) Date of Service: unknown) (unknown) (no (unknown) (unknown) Allergies (units (unkn own) date) unknown) (unknown) (no (unknown) (unknown) LORRAINE Gonsalez (units ( unknown) date) [id number] unknown) (unknown) (no (unknown) (unknown) Attending Dr: (units ( unknown) date) Benedicto Munoz MD unknown) (unknown) (no (unknown) (unknown) : 1935 (units (unknown) date) Acct:[id number] unknown) (unknown) (no (unknown) (unknown) Dept at (units (unkno wn) date) . unknown) (unknown) (no (unknown) (unknown) Documented By: (units (unknown) date) Benedicto Munoz MD unknown) 02/06/22 0935 (unknown) (no (unknown) (unknown) Draft (units (unkno wn) date) unknown) (unknown) (no (unknown) (unknown) Evaluation/Scree (units (unknown) date) magali for possible unknown) COVID-19 completed?: Yes- COVID-19 CPT (unknown) (no (unknown) (unknown) Intake Note: (units (u nknown) date) unknown) (unknown) (no (unknown) (unknown) Intake (units (unkno wn) date) unknown) (unknown) (no (unknown) (unknown) [facility] (units (unknown) date) unknown) (unknown) (no (unknown) (unknown) Loc: [facility] (units (unkno wn) date) unknown) (unknown) (no (unknown) (unknown) No Known Drug (units ( unknown) date) Allergies Allergy unknown) (Verified 12/24/21 10:26) (unknown) (no (unknown) (unknown) Note (units (unkno wn) date) unknown) (unknown) (no (unknown) (unknown) Nurse Office (units (u nknown) date) Visit unknown) (unknown) (no (unknown) (unknown) PRE-PROCEDURE (units ( unknown) date) COVID TEST. PT. unknown) DENIES ANY SYMPTOMS. TEST EXPLAINED AND PT. (unknown) (no (unknown) (unknown) Patient: (units (unkno wn) date) Eb Flores unknown) MR#: [id number] (unknown) (no (unknown) (unknown) Reason For Visit (units (unknown) date) unknown) (unknown) (no (unknown) (unknown) Signed By: (units (unk nown) date) unknown) (unknown) (no (unknown) (unknown) Smoking Status: (units (unknown) date) Former smoker unknown) (unknown) (no (unknown) (unknown) TOLERATED WELL. (units (unknown) date) unknown) (unknown) (no (unknown) (unknown) This note may (units ( unknown) date) have been all or unknown) partially generated using voice recognition (unknown) (no (unknown) (unknown) Tobacco Status (units (unknown) date) unknown) (unknown) (no (unknown) (unknown) Visit Reasons: (units (unknown) date) alexander unknown) (unknown) (no (unknown) (unknown) have occurred. (units (unknown) date) If there are any unknown) questions, please contact the Medical Records (unknown) (no (unknown) (unknown) may occur. (units (unk nown) date) Occasional unknown) wrong-word or 'sound-alike' substitutions may have (unknown) (no (unknown) (unknown) occurred due to (units (unknown) date) the inherent unknown) limitations of voice recognition software. Please (unknown) (no (unknown) (unknown) read the note (units ( unknown) date) carefully and unknown) recognize, using context, where these substitutions (unknown) (no (unknown) (unknown) software. 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 Result panel 22 (unknown) (no (unknown) (unknown) (no value) (units (unk nown) date) unknown) (unknown) (no (unknown) (unknown) COVID-19 (units (u nknown) date) unknown) (unknown) (no (unknown) (unknown) [id number] (units (unkno wn) date) unknown) (unknown) (no (unknown) (unknown) 02/06/22 1054 (units ( unknown) date) unknown) (unknown) (no (unknown) (unknown) 02/06/22 (units (unkno wn) date) unknown) (unknown) (no (unknown) (unknown) Age/Sex: 86 / M (units (unknown) date) Date of Service: unknown) (unknown) (no (unknown) (unknown) Allergies (units (unkn own) date) unknown) (unknown) (no (unknown) (unknown) [place] (units ( unknown) date) [id number] unknown) (unknown) (no (unknown) (unknown) Attending Dr: (units ( unknown) date) Benedicto Munoz MD unknown) (unknown) (no (unknown) (unknown) : 1935 (units (unknown) date) Acct:[id number] unknown) (unknown) (no (unknown) (unknown) Dept at (units (unkno wn) date) . unknown) (unknown) (no (unknown) (unknown) Documented By: (units (unknown) date) Benedicto Munoz MD unknown) 02/06/22 0935 (unknown) (no (unknown) (unknown) Evaluation/Scree (units (unknown) date) magali for possible unknown) COVID-19 completed?: Yes- COVID-19 CPT (unknown) (no (unknown) (unknown) Intake Note: (units (u nknown) date) unknown) (unknown) (no (unknown) (unknown) Intake (units (unkno wn) date) unknown) (unknown) (no (unknown) (unknown) [facility] (units (unknown) date) unknown) (unknown) (no (unknown) (unknown) Loc: [facility] (units (unkno wn) date) unknown) (unknown) (no (unknown) (unknown) No Known Drug (units ( unknown) date) Allergies Allergy unknown) (Verified 12/24/21 10:26) (unknown) (no (unknown) (unknown) Note (units (unkno wn) date) unknown) (unknown) (no (unknown) (unknown) Nurse Office (units (u nknown) date) Visit unknown) (unknown) (no (unknown) (unknown) PRE-PROCEDURE (units ( unknown) date) COVID TEST. PT. unknown) DENIES ANY SYMPTOMS. TEST EXPLAINED AND PT. (unknown) (no (unknown) (unknown) Patient: (units (unkno wn) date) Eb Flores unknown) MR#: [id number] (unknown) (no (unknown) (unknown) Reason For Visit (units (unknown) date) unknown) (unknown) (no (unknown) (unknown) Signed By: (units (unk nown) date) <Electronically unknown) signed by Benedicto Munoz MD> (unknown) (no (unknown) (unknown) Signed (units (unkno wn) date) unknown) (unknown) (no (unknown) (unknown) Smoking Status: (units (unknown) date) Former smoker unknown) (unknown) (no (unknown) (unknown) TOLERATED WELL. (units (unknown) date) unknown) (unknown) (no (unknown) (unknown) This note may (units ( unknown) date) have been all or unknown) partially generated using voice recognition (unknown) (no (unknown) (unknown) Tobacco Status (units (unknown) date) unknown) (unknown) (no (unknown) (unknown) Visit Reasons: (units (unknown) date) alexander unknown) (unknown) (no (unknown) (unknown) have occurred. (units (unknown) date) If there are any unknown) questions, please contact the Medical Records (unknown) (no (unknown) (unknown) may occur. (units (unk nown) date) Occasional unknown) wrong-word or 'sound-alike' substitutions may have (unknown) (no (unknown) (unknown) occurred due to (units (unknown) date) the inherent unknown) limitations of voice recognition software. Please (unknown) (no (unknown) (unknown) read the note (units ( unknown) date) carefully and unknown) recognize, using context, where these substitutions (unknown) (no (unknown) (unknown) software. 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 Result panel 23 (unknown) (no date) (unknown) (unknown) Negative (units (unkn own) unknown) (unknown) (no date) (unknown) (unknown) Negative (units (unkn own) unknown) Result panel 24 (unknown) (no date) (unknown) (unknown) (no value) (units 191 39-5 unknown) (unknown) (no date) (unknown) (unknown) (no value) (units 226 33-2 unknown) (unknown) (no date) (unknown) (unknown) (no value) (units 226 34-0 unknown) (unknown) (no date) (unknown) (unknown) (no value) (units 226 37-3 unknown) (unknown) (no date) (unknown) (unknown) (no value) (units 495 60-6 unknown) (unknown) (no date) (unknown) (unknown) (no value) (units 527 97-8 unknown) (unknown) (no date) (unknown) (unknown) (no value) (units (un known) unknown) (unknown) (no date) (unknown) (unknown) (no value) (units (un known) unknown) (unknown) (no date) (unknown) (unknown) (no value) (units (un known) unknown) (unknown) (no date) (unknown) (unknown) (no value) (units (un known) unknown) (unknown) (no date) (unknown) (unknown) (no value) (units (un known) unknown) (unknown) (no date) (unknown) (unknown) (no value) (units (un known) unknown) Result panel 25 (unknown) (no (unknown) (unknown) (no value) (units (unk nown) date) unknown) (unknown) (no (unknown) (unknown) (1) History of (units (unknown) date) colon polyps: unknown) (unknown) (no (unknown) (unknown) (Spiriva (units (unkno wn) date) Respimat) unknown) (unknown) (no (unknown) (unknown) (Voltaren (units (unkn own) date) Arthritis Pain) unknown) (unknown) (no (unknown) (unknown) 0.188 (units (unkno wn) date) gram-magnes sul unknown) 0.225 gram #24 tabs (unknown) (no (unknown) (unknown) [id number] (units (unkno wn) date) unknown) (unknown) (no (unknown) (unknown) 12/24/21 History (units (unknown) date) unknown) (unknown) (no (unknown) (unknown) 12/24/21 Rx (units (un known) date) unknown) (unknown) (no (unknown) (unknown) 02/07/22 1235 (units ( unknown) date) unknown) (unknown) (no (unknown) (unknown) Age/Sex: 86 / M (units (unknown) date) unknown) (unknown) (no (unknown) (unknown) Allergies (units (unkn own) date) unknown) (unknown) (no (unknown) (unknown) Allergy/AdvReac (units (unknown) date) Type Severity unknown) Reaction Status Date / Time (unknown) (no (unknown) (unknown) Anemia (units (unkno wn) date) (08/29/17) unknown) (unknown) (no (unknown) (unknown) Arrhythmia (units (unk nown) date) unknown) (unknown) (no (unknown) (unknown) Assessment + (units (u nknown) date) Plan unknown) (unknown) (no (unknown) (unknown) Assessment and (units (unknown) date) plan unknown) (unknown) (no (unknown) (unknown) Atrial (units (unkno wn) date) fibrillation with unknown) rapid ventricular response (05/06/16) (unknown) (no (unknown) (unknown) COPD (chronic (units ( unknown) date) obstructive unknown) pulmonary disease) (unknown) (no (unknown) (unknown) Chief complaint: (units (unknown) date) DX COLONOSCOPY unknown) (unknown) (no (unknown) (unknown) Const (units (unkno wn) date) unknown) (unknown) (no (unknown) (unknown) Coronary artery (units (unknown) date) disease involving unknown) coronary bypass graft of [place] heart without (unknown) (no (unknown) (unknown) Critical Care (units ( unknown) date) time: unknown) (unknown) (no (unknown) (unknown) : 1935 (units (unknown) date) Acct:[id number] unknown) (unknown) (no (unknown) (unknown) Jostin is an (units (unkn own) date) 86-year-old man unknown) who is due for colonoscopy due to history of polyps. (unknown) (no (unknown) (unknown) Date Patient (units (u nknown) date) Seen: 02/07/22 unknown) (unknown) (no (unknown) (unknown) Date of Service: (units (unknown) date) 02/07/22 unknown) (unknown) (no (unknown) (unknown) Easy (units (unkno wn) date) bruisability unknown) (unknown) (no (unknown) (unknown) Effort + (units (unkno wn) date) Inspection: unknown) normal respiratory effort (unknown) (no (unknown) (unknown) Erectile (units (unkno wn) date) dysfunction unknown) (07/24/16) (unknown) (no (unknown) (unknown) Essential (units (unkn own) date) hypertension unknown) (06/03/16) (unknown) (no (unknown) (unknown) Exam (units (unkno wn) date) unknown) (unknown) (no (unknown) (unknown) Family + Social (units (unknown) date) History unknown) (unknown) (no (unknown) (unknown) Former smoker (units ( unknown) date) unknown) (unknown) (no (unknown) (unknown) GERD (units (unkno wn) date) (gastroesophageal unknown) reflux disease) (unknown) (no (unknown) (unknown) General: No (units (un known) date) acute distress unknown) (unknown) (no (unknown) (unknown) Hemorrhagic (units (un known) date) stroke unknown) (unknown) (no (unknown) (unknown) His last (units (unkno wn) date) colonoscopy was unknown) at [facility] 2017 and polyps were removed. He also (unknown) (no (unknown) (unknown) History + (units (unkn own) date) Physical Report unknown) (unknown) (no (unknown) (unknown) History of (units (unk nown) date) Present Illness unknown) (unknown) (no (unknown) (unknown) History of (units (unk nown) date) colonoscopy unknown) (unknown) (no (unknown) (unknown) Home Medications (units (unknown) date) and Allergies unknown) (unknown) (no (unknown) (unknown) Home Medications (units (unknown) date) unknown) (unknown) (no (unknown) (unknown) Hx of bilateral (units (unknown) date) cataract unknown) extraction (07/2019) (unknown) (no (unknown) (unknown) Hx of cardiac (units ( unknown) date) cath unknown) (unknown) (no (unknown) (unknown) Hx of heart (units (un known) date) artery stent unknown) (1997) (unknown) (no (unknown) (unknown) I spent a total (units (unknown) date) of [] minutes of unknown) critical care time on this patient's care (unknown) (no (unknown) (unknown) [facility] (units (unknown) date) [address] unknown) [place] [address] (unknown) (no (unknown) (unknown) Jaw fracture (units (u nknown) date) unknown) (unknown) (no (unknown) (unknown) 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 (07/09/17) (unknown) (no (unknown) (unknown) Medical History (units (unknown) date) (Reviewed unknown) 12/10/21 @ 14:36 by Alexandro English RN) (unknown) (no (unknown) (unknown) Medication (units (unk nown) date) Instructions unknown) Recorded Confirmed Type (unknown) (no (unknown) (unknown) Meds (units (unkno wn) date) unknown) (unknown) (no (unknown) (unknown) Myocardial (units (unk nown) date) infarction (1995) unknown) (unknown) (no (unknown) (unknown) Narrative: (units (unk nown) date) unknown) (unknown) (no (unknown) (unknown) No Known Drug (units ( unknown) date) Allergies Allergy unknown) Verified 02/07/22 12:30 (unknown) (no (unknown) (unknown) 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 (unknown) (no (unknown) (unknown) Patient History (units (unknown) date) unknown) (unknown) (no (unknown) (unknown) Patient: (units (unkno wn) date) Eb Flores unknown) MR#: [id number] (unknown) (no (unknown) (unknown) Plan: (units (unkno wn) date) unknown) (unknown) (no (unknown) (unknown) Provider: (units ( own) date) Benedicto Munoz MD unknown) (unknown) (no (unknown) (unknown) Resp (units (unkno wn) date) unknown) (unknown) (no (unknown) (unknown) Rx (units (unkno wn) date) unknown) (unknown) (no (unknown) (unknown) 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) unknown) (unknown) (no (unknown) (unknown) Signed (units (unkno wn) date) By:<Electronicall unknown) y signed by Benedicto Munoz MD> (unknown) (no (unknown) (unknown) Smoking Status (units (unknown) date) Former smoker unknown) (unknown) (no (unknown) (unknown) Social History: (units (unknown) date) unknown) (unknown) (no (unknown) (unknown) Status: Acute (units ( unknown) date) unknown) (unknown) (no (unknown) (unknown) Substance Use (units ( unknown) date) Type does not use unknown) (unknown) (no (unknown) (unknown) Surgical History (units (unknown) date) (Reviewed unknown) 12/10/21 @ 14:36 by Alexandro English RN) (unknown) (no (unknown) (unknown) Time Patient (units (u nknown) date) Seen: 12:33 unknown) (unknown) (no (unknown) (unknown) Time Spent With (units (unknown) date) Patient unknown) (unknown) (no (unknown) (unknown) Tobacco + (units (unkn own) date) Substance use: unknown) (unknown) (no (unknown) (unknown) We reviewed the (units (unknown) date) risks and unknown) benefits of colonoscopy and he would like to proceed. (unknown) (no (unknown) (unknown) acetaminophen (units ( unknown) date) 500 mg capsule unknown) 500 mg PO Q6H PRN Pain 03/24/18 12/24/21 History (unknown) (no (unknown) (unknown) albuterol (units (unkn own) date) sulfate 90 unknown) mcg/actuation 2 inh inhalation Q4H PRN shortness 11/12/21 (unknown) (no (unknown) (unknown) alcohol intake (units (unknown) date) current unknown) (unknown) (no (unknown) (unknown) alcohol intake (units (unknown) date) frequency 0-2 unknown) drinks per day (unknown) (no (unknown) (unknown) angina pectoris (units (unknown) date) (06/03/16) unknown) (unknown) (no (unknown) (unknown) atorvastatin 20 (units (unknown) date) mg tablet 20 mg unknown) PO BEDTIME #90 tabs 04/25/21 12/24/21 Rx (unknown) (no (unknown) (unknown) believes he is (units (unknown) date) undergoing weight unknown) loss although it is possible that this is (unknown) (no (unknown) (unknown) breath activated (units (unknown) date) powder inhaler of unknown) breath or wheezing #1 ea (unknown) (no (unknown) (unknown) caregiver/suppor (units (unknown) date) t person No unknown) (unknown) (no (unknown) (unknown) diclofenac (units (unk nown) date) sodium 1 % unknown) topical gel 2 g topical QID #100 grams 08/07/20 12/24/21 (unknown) (no (unknown) (unknown) diclofenac (units (unk nown) date) sodium 1 % unknown) topical gel 4 g topical QID PRN pain #100 grams 08/30/21 (unknown) (no (unknown) (unknown) fluoxetine 20 mg (units (unknown) date) capsule 20 mg PO unknown) DAILY #90 caps 06/26/21 12/24/21 Rx (unknown) (no (unknown) (unknown) household (units (unkn own) date) members spouse unknown) (unknown) (no (unknown) (unknown) lives (units (unkno wn) date) independently Yes unknown) (unknown) (no (unknown) (unknown) losartan 100 mg (units (unknown) date) tablet 100 mg PO unknown) BEDTIME BP #90 tabs 07/24/20 12/24/21 Rx (unknown) (no (unknown) (unknown) mcg/actuation (units ( unknown) date) mist for unknown) inhalation (unknown) (no (unknown) (unknown) metoprolol (units (unk nown) date) tartrate 50 mg unknown) tablet 50 mg PO BID #180 tabs 11/23/21 12/24/21 Rx (unknown) (no (unknown) (unknown) omeprazole 40 mg (units (unknown) date) capsule,delayed unknown) See Rx Instructions .Route 08/28/21 12/24/21 Rx (unknown) (no (unknown) (unknown) placebo vs (units (unk nown) date) aspirin .Route unknown) 04/11/20 12/24/21 History (unknown) (no (unknown) (unknown) release .COMPLEX (units (unknown) date) #90 caps unknown) (unknown) (no (unknown) (unknown) rivaroxaban 20 (units (unknown) date) mg tablet unknown) (Xarelto) 20 mg PO QPM #90 tabs 05/16/20 12/24/21 Rx (unknown) (no (unknown) (unknown) simply (units (unkno wn) date) physiological unknown) weight loss with age. (unknown) (no (unknown) (unknown) sodium sul 1.479 (units (unknown) date) gram-potas ch See unknown) Rx Instructions PO PER PKG DIR 01/29/22 Rx (unknown) (no (unknown) (unknown) tablet (Sutab) (units (unknown) date) unknown) (unknown) (no (unknown) (unknown) tadalafil 10 mg (units (unknown) date) tablet (Cialis) unknown) 10 mg PO PRN PRN Sexual Activity 11/05/19 (unknown) (no (unknown) (unknown) tiotropium (units (unk nown) date) bromide 2.5 2 inh unknown) inhalation QAM #12 grams 12/12/21 12/24/21 Rx (unknown) (no (unknown) (unknown) today; this time (units (unknown) date) is exclusive of unknown) procedural time. Result panel 26 (unknown) (no (unknown) (unknown) (no value) (units (unk nown) date) unknown) (unknown) (no (unknown) (unknown) (units (unknown) date) unknown) (unknown) (no (unknown) (unknown) Performed at: (units (unknown) date) 01 unknown) (unknown) (no (unknown) (unknown) . 01 (units (unkno wn) date) unknown) (unknown) (no (unknown) (unknown) /CPE 02/09/2022 (units (unknown) date) 0649 Local unknown) (unknown) (no (unknown) (unknown) 0.4 x 0.2 x 0.1 (units (unknown) date) cm submitted unknown) entirely in 1 cassette(s) (unknown) (no (unknown) (unknown) [address] [place] [address] (units (unknown) date) unknown) (unknown) (no (unknown) (unknown) [address] (units (unknown) date) [address], unknown) [place], [place] [id number] (unknown) (no (unknown) (unknown) [id number] (units (unkno wn) date) unknown) (unknown) (no (unknown) (unknown) [place], [place] (units ( unknown) date) [id number] unknown) (unknown) (no (unknown) (unknown) CPT . (units (unkno wn) date) unknown) (unknown) (no (unknown) (unknown) Collection Date: (units (unknown) date) 02/07/22 unknown) (unknown) (no (unknown) (unknown) D12.5 (units (unkno wn) date) unknown) (unknown) (no (unknown) (unknown) DD/ (units (unknown) date) 0000 unknown) (unknown) (no (unknown) (unknown) Date of : (units (unknown) date) 1935 Admit unknown) Date: 02/07/22 (unknown) (no (unknown) (unknown) Diagnosis: (units (unk nown) date) unknown) (unknown) (no (unknown) (unknown) Dictated By: (units (u nknown) date) Pamela Taylor unknown) (unknown) (no (unknown) (unknown) Electronically (units (unknown) date) signed: . unknown) (unknown) (no (unknown) (unknown) Gross (units (unkno wn) date) description: . unknown) (unknown) (no (unknown) (unknown) [facility] (units (unknown) date) unknown) (unknown) (no (unknown) (unknown) Pamela Curiel (units (unk nown) date) MD Brandon, unknown) Pathologist (unknown) (no (unknown) (unknown) [facility] (units ( unknown) date) Number: unknown) [id number] (unknown) (no (unknown) (unknown) [facility] (units (unknown) date) [place] [facility] unknown) (unknown) (no (unknown) (unknown) MD Parson (units (unkn own) date) Katy CHAVEZ Phone: unknown) [phone] (unknown) (no (unknown) (unknown) (units (unknown) date) Dictating Dr: unknown) Pamela Taylor MD (unknown) (no (unknown) (unknown) MRV 02/11/2022 (units (unknown) date) 1028 Local unknown) (unknown) (no (unknown) (unknown) Material (units (unkno wn) date) submitted: . unknown) (unknown) (no (unknown) (unknown) [facility]- [phone] (units (unknown) date) unknown) (unknown) (no (unknown) (unknown) Ordering (units (unkno wn) date) Physician: unknown) Benedicto Munoz MD (unknown) (no (unknown) (unknown) Pathologist (units (un known) date) provided ICD-10: unknown) (unknown) (no (unknown) (unknown) Pathology (units (unkn own) date) Diagnostic Report unknown) (unknown) (no (unknown) (unknown) Patient name: (units ( unknown) date) Eb Flores unknown) (unknown) (no (unknown) (unknown) Received in (units (un known) date) formalin is 1 unknown) fragment(s) of miranda, soft tissue measuring (unknown) (no (unknown) (unknown) SIGMOID POLYPS: (units (unknown) date) unknown) (unknown) (no (unknown) (unknown) Sigmoid Colon, (units (unknown) date) Polyps, Biopsies: unknown) (unknown) (no (unknown) (unknown) Signed By: (units (unk nown) date) 02/11/22 1407 unknown) (unknown) (no (unknown) (unknown) Signed (units (unkno wn) date) unknown) (unknown) (no (unknown) (unknown) Specimen (units (unkno wn) date) Comment: A unknown) courtesy copy of this report has been sent to [phone] (unknown) (no (unknown) (unknown) TD/TT: 02/11/22 (units (unknown) date) 1407 unknown) (unknown) (no (unknown) (unknown) Tubular adenoma, (units (unknown) date) one fragment. unknown) (unknown) (no (unknown) (unknown) colon - SIGMOID (units (unknown) date) POLYPS unknown) Result panel 27 (unknown) (no (unknown) (unknown) (no value) (units (unk nown) date) unknown) (unknown) (no (unknown) (unknown) [id number] (units (unkno wn) date) unknown) (unknown) (no (unknown) (unknown) 02/07/22 1334 (units ( unknown) date) unknown) (unknown) (no (unknown) (unknown) Age/Sex: 86 / M (units (unknown) date) unknown) (unknown) (no (unknown) (unknown) Colonoscopy Note (units (unknown) date) unknown) (unknown) (no (unknown) (unknown) Colonoscopy (units (un known) date) unknown) (unknown) (no (unknown) (unknown) : 1935 (units (unknown) date) Acct:[id number] unknown) (unknown) (no (unknown) (unknown) Date of Service: (units (unknown) date) 02/07/22 unknown) (unknown) (no (unknown) (unknown) Date of procedure: (units (unknown) date) 02/07/22 unknown) (unknown) (no (unknown) (unknown) Disposition: PACU (units (unknown) date) unknown) (unknown) (no (unknown) (unknown) EBL: 5 mL (units (unkn own) date) unknown) (unknown) (no (unknown) (unknown) Fentanyl: 75 mcg (units (unknown) date) unknown) (unknown) (no (unknown) (unknown) Findings: (units (unkn own) date) Pandiverticulosis unknown) and 2 small sigmoid colon polyps (unknown) (no (unknown) (unknown) [facility] (units (unknown) date) [address] unknown) [place] [address] (unknown) (no (unknown) (unknown) Operative (units (unkn own) date) Date/Time/Diagnoses unknown) (unknown) (no (unknown) (unknown) Patient: (units (unkno wn) date) Eb Flores unknown) MR#: [id number] (unknown) (no (unknown) (unknown) Post-op diagnosis: (units (unknown) date) same unknown) (unknown) (no (unknown) (unknown) Post-procedure (units (unknown) date) unknown) (unknown) (no (unknown) (unknown) Pre-op diagnosis: (units (unknown) date) History of polyps unknown) (unknown) (no (unknown) (unknown) Procedure + (units (un known) date) Clinicians unknown) (unknown) (no (unknown) (unknown) Procedure Notes (units (unknown) date) unknown) (unknown) (no (unknown) (unknown) Procedure in (units (u nknown) date) detail: unknown) (unknown) (no (unknown) (unknown) Procedure: The (units (unknown) date) patient was brought unknown) to the endoscopy suite, placed in left (unknown) (no (unknown) (unknown) Provider: (units (unkn own) date) Benedicto Munoz MD unknown) (unknown) (no (unknown) (unknown) Recommendations: (units (unknown) date) Will call with unknown) biopsy results (unknown) (no (unknown) (unknown) Same procedure as (units (unknown) date) scheduled: Yes unknown) (unknown) (no (unknown) (unknown) Scope withdrawal (units (unknown) date) time: 17 unknown) (unknown) (no (unknown) (unknown) Sedation minutes: (units (unknown) date) 31 unknown) (unknown) (no (unknown) (unknown) Signed (units (unkno wn) date) By:<Electronically unknown) signed by Benedicto Munoz MD> (unknown) (no (unknown) (unknown) Study performed: (units (unknown) date) unknown) (unknown) (no (unknown) (unknown) Surgeon: Benedicto (units ( unknown) date) Alexander CHAVEZ unknown) (unknown) (no (unknown) (unknown) Surgeon: Benedicto Licea (units (unknown) date) Alexander unknown) (unknown) (no (unknown) (unknown) Time of procedure: (units (unknown) date) 13:33 unknown) (unknown) (no (unknown) (unknown) Versed: 4 mg (units (u nknown) date) unknown) (unknown) (no (unknown) (unknown) adequately sedated, (unit s (unknown) date) a digital rectal unknown) exam was performed and was normal. The (unknown) (no (unknown) (unknown) greater than 6 (units (unknown) date) minutes. The mucosa unknown) was thoroughly inspected. There was (unknown) (no (unknown) (unknown) lateral decubitus (units (unknown) date) position. The unknown) patient was connected to monitoring devices. A (unknown) (no (unknown) (unknown) pandiverticulosis (units (unknown) date) greatest in the unknown) sigmoid colon. There were 2 small polyps in (unknown) (no (unknown) (unknown) rectum. There were (units (unknown) date) internal hemorrhoids unknown) but no other abnormalities. The scope (unknown) (no (unknown) (unknown) scope was then (units (unknown) date) inserted and unknown) advanced to the cecum where the appendiceal orifice (unknown) (no (unknown) (unknown) the proximal (units (u nknown) date) sigmoid colon with unknown) cold snare. The scope was retroflexed in the (unknown) (no (unknown) (unknown) time-out was (units (u nknown) date) performed. Sedation unknown) was administered. Once the patient was (unknown) (no (unknown) (unknown) was identified and (units (unknown) date) photographed. The unknown) scope was then slowly withdrawn over (unknown) (no (unknown) (unknown) was straightened (units (unknown) date) and removed. The unknown) patient was awakened and brought to recovery. Result panel 28 (unknown) (no (unknown) (unknown) (no value) (units (unk nown) date) unknown) (unknown) (no (unknown) (unknown) [id number] (units (unkno wn) date) unknown) (unknown) (no (unknown) (unknown) 12/24/21 (units (unkno wn) date) unknown) (unknown) (no (unknown) (unknown) Accompanied by: (units (unknown) date) unknown) (unknown) (no (unknown) (unknown) Age/Sex: 86 / M (units (unknown) date) Date of Service: unknown) (unknown) (no (unknown) (unknown) Allergies (units (unkn own) date) unknown) (unknown) (no (unknown) (unknown) [place] [facility] (units (unknown) date) Medicine unknown) (unknown) (no (unknown) (unknown) [place], [place] (units ( unknown) date) [id number] unknown) (unknown) (no (unknown) (unknown) Anemia (units (unkno wn) date) (08/29/17) unknown) (unknown) (no (unknown) (unknown) Arrhythmia (units (unk nown) date) unknown) (unknown) (no (unknown) (unknown) Atrial (units (unkno wn) date) fibrillation with unknown) rapid ventricular response (05/06/16) (unknown) (no (unknown) (unknown) Attending Dr: (units ( unknown) date) Aditi Saunders MD unknown) (unknown) (no (unknown) (unknown) COPD (chronic (units ( unknown) date) obstructive unknown) pulmonary disease) (unknown) (no (unknown) (unknown) Coronary artery (units (unknown) date) disease involving unknown) coronary bypass graft of q[place]alangin heart without (unknown) (no (unknown) (unknown) : 1935 (units (unknown) date) Acct:[id number] unknown) (unknown) (no (unknown) (unknown) Dept at (units (unkno wn) date) . unknown) (unknown) (no (unknown) (unknown) Documented By: (units (unknown) date) Aditi Saunders MD unknown) 02/26/22 0759 (unknown) (no (unknown) (unknown) Draft (units (unkno wn) date) unknown) (unknown) (no (unknown) (unknown) Easy (units (unkno wn) date) bruisability unknown) (unknown) (no (unknown) (unknown) Erectile (units (unkno wn) date) dysfunction unknown) (07/24/16) (unknown) (no (unknown) (unknown) Essential (units (unkn own) date) hypertension unknown) (06/03/16) (unknown) (no (unknown) (unknown) Family Practice (units (unknown) date) Office Visit unknown) (unknown) (no (unknown) (unknown) Former smoker (units ( unknown) date) unknown) (unknown) (no (unknown) (unknown) GERD (units (unkno wn) date) (gastroesophageal unknown) reflux disease) (unknown) (no (unknown) (unknown) Hemorrhagic (units (un known) date) stroke unknown) (unknown) (no (unknown) (unknown) History of (units (unk nown) date) colonoscopy unknown) (unknown) (no (unknown) (unknown) Hx of bilateral (units (unknown) date) cataract unknown) extraction (07/2019) (unknown) (no (unknown) (unknown) Hx of cardiac (units ( unknown) date) cath unknown) (unknown) (no (unknown) (unknown) Hx of heart (units (un known) date) artery stent unknown) (1997) (unknown) (no (unknown) (unknown) Intake Note: (units (u nknown) date) unknown) (unknown) (no (unknown) (unknown) Intake (units (unkno wn) date) unknown) (unknown) (no (unknown) (unknown) Jaw fracture (units (u nknown) date) unknown) (unknown) (no (unknown) (unknown) Loc: [facility] (units (unkno wn) date) unknown) (unknown) (no (unknown) (unknown) 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) unknown) (unknown) (no (unknown) (unknown) Signed By: (units (unk nown) date) unknown) (unknown) (no (unknown) (unknown) Smoking Status: (units (unknown) date) Former smoker unknown) (unknown) (no (unknown) (unknown) Social History (units (unknown) date) unknown) (unknown) (no (unknown) (unknown) Surgical History (units (unknown) date) (Reviewed unknown) 12/10/21 @ 14:36 by Alexandro English RN) (unknown) (no (unknown) (unknown) This note may (units ( unknown) date) have been all or unknown) partially generated using voice recognition (unknown) (no (unknown) (unknown) Tobacco + (units (unkn own) date) Substance Use unknown) (unknown) (no (unknown) (unknown) Tobacco Status (units (unknown) date) unknown) (unknown) (no (unknown) (unknown) Visit Reasons: 2 (units (unknown) date) mo f/u wt loss unknown) (unknown) (no (unknown) (unknown) alcohol intake: (units (unknown) date) current unknown) (unknown) (no (unknown) (unknown) angina pectoris (units (unknown) date) (06/03/16) unknown) (unknown) (no (unknown) (unknown) caregiver/suppor (units (unknown) date) t person: No unknown) (unknown) (no (unknown) (unknown) colon polyps (units (u nknown) date) which have been unknown) recent visit reasons in the last 6 months. Pt's (unknown) (no (unknown) (unknown) have occurred. (units (unknown) date) If there are any unknown) questions, please contact the Medical Records (unknown) (no (unknown) (unknown) household (units (unkn own) date) members: spouse unknown) (unknown) (no (unknown) (unknown) housing: house (units (unknown) date) unknown) (unknown) (no (unknown) (unknown) last appt weight (units (unknown) date) with Dr. Saunders unknown) was 163 on 12/24/21. (unknown) (no (unknown) (unknown) lives (units (unkno wn) date) independently: unknown) Yes (unknown) (no (unknown) (unknown) marital status: (units (unknown) date) unknown) (unknown) (no (unknown) (unknown) may occur. (units (unk nown) date) Occasional unknown) wrong-word or 'sound-alike' substitutions may have (unknown) (no (unknown) (unknown) number of (units (unkn own) date) children: 2 unknown) (unknown) (no (unknown) (unknown) occurred due to (units (unknown) date) the inherent unknown) limitations of voice recognition software. Please (unknown) (no (unknown) (unknown) read the note (units ( unknown) date) carefully and unknown) recognize, using context, where these substitutions (unknown) (no (unknown) (unknown) second hand (units (un known) date) exposure: No unknown) (unknown) (no (unknown) (unknown) software. 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 (unknown) (no (unknown) (unknown) substance use (units ( unknown) date) type: does not unknown) use Result panel 29 (unknown) (no (unknown) (unknown) (no value) (units (unk nown) date) unknown) (unknown) (no (unknown) (unknown) [id number] (units (unkno wn) date) unknown) (unknown) (no (unknown) (unknown) 02/26/22 (units (unkno wn) date) unknown) (unknown) (no (unknown) (unknown) Accompanied by: (units (unknown) date) unknown) (unknown) (no (unknown) (unknown) Age/Sex: 86 / M (units (unknown) date) Date of Service: unknown) (unknown) (no (unknown) (unknown) Allergies (units (unkn own) date) unknown) (unknown) (no (unknown) (unknown) [facility] [facility] (units (unknown) date) Medicine unknown) (unknown) (no (unknown) (unknown) [place], [place] (units ( unknown) date) [address] unknown) (unknown) (no (unknown) (unknown) Anemia (units (unkno wn) date) (08/29/17) unknown) (unknown) (no (unknown) (unknown) Arrhythmia (units (unk nown) date) unknown) (unknown) (no (unknown) (unknown) Atrial (units (unkno wn) date) fibrillation with unknown) rapid ventricular response (05/06/16) (unknown) (no (unknown) (unknown) Attending Dr: (units ( unknown) date) Aditi Saunders MD unknown) (unknown) (no (unknown) (unknown) COPD (chronic (units ( unknown) date) obstructive unknown) pulmonary disease) (unknown) (no (unknown) (unknown) Coronary artery (units (unknown) date) disease involving unknown) coronary bypass graft of qawalangin heart without (unknown) (no (unknown) (unknown) : 1935 (units (unknown) date) Acct:[id number] unknown) (unknown) (no (unknown) (unknown) Dept at (units (unkno wn) date) . unknown) (unknown) (no (unknown) (unknown) Documented By: (units (unknown) date) Aditi Saunders MD unknown) 02/26/22 0759 (unknown) (no (unknown) (unknown) Draft (units (unkno wn) date) unknown) (unknown) (no (unknown) (unknown) Easy (units (unkno wn) date) bruisability unknown) (unknown) (no (unknown) (unknown) Erectile (units (unkno wn) date) dysfunction unknown) (07/24/16) (unknown) (no (unknown) (unknown) Essential (units (unkn own) date) hypertension unknown) (06/03/16) (unknown) (no (unknown) (unknown) Family Practice (units (unknown) date) Office Visit unknown) (unknown) (no (unknown) (unknown) Former smoker (units ( unknown) date) unknown) (unknown) (no (unknown) (unknown) GERD (units (unkno wn) date) (gastroesophageal unknown) reflux disease) (unknown) (no (unknown) (unknown) Hemorrhagic (units (un known) date) stroke unknown) (unknown) (no (unknown) (unknown) History of (units (unk nown) date) colonoscopy unknown) (unknown) (no (unknown) (unknown) Hx of bilateral (units (unknown) date) cataract unknown) extraction (07/2019) (unknown) (no (unknown) (unknown) Hx of cardiac (units ( unknown) date) cath unknown) (unknown) (no (unknown) (unknown) Hx of heart (units (un known) date) artery stent unknown) (1998) (unknown) (no (unknown) (unknown) Intake Note: (units (u nknown) date) unknown) (unknown) (no (unknown) (unknown) Intake (units (unkno wn) date) unknown) (unknown) (no (unknown) (unknown) Jaw fracture (units (u nknown) date) unknown) (unknown) (no (unknown) (unknown) Loc: [facility] (units (unkno wn) date) unknown) (unknown) (no (unknown) (unknown) 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 Hx of COPD and (unknown) (no (unknown) (unknown) PFSH (units (unkno wn) date) unknown) (unknown) (no (unknown) (unknown) Patient: (units (unkno wn) date) Eb Flores unknown) MR#: [id number] (unknown) (no (unknown) (unknown) Reason For Visit (units (unknown) date) unknown) (unknown) (no (unknown) (unknown) 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) unknown) (unknown) (no (unknown) (unknown) Signed By: (units (unk nown) date) unknown) (unknown) (no (unknown) (unknown) Smoking Status: (units (unknown) date) Former smoker unknown) (unknown) (no (unknown) (unknown) Social History (units (unknown) date) unknown) (unknown) (no (unknown) (unknown) Surgical History (units (unknown) date) (Reviewed unknown) 12/10/21 @ 14:36 by Alexandro English RN) (unknown) (no (unknown) (unknown) This note may (units ( unknown) date) have been all or unknown) partially generated using voice recognition (unknown) (no (unknown) (unknown) Tobacco + (units (unkn own) date) Substance Use unknown) (unknown) (no (unknown) (unknown) Tobacco Status (units (unknown) date) unknown) (unknown) (no (unknown) (unknown) Visit Reasons: 2 (units (unknown) date) mo f/u wt loss unknown) (unknown) (no (unknown) (unknown) alcohol intake: (units (unknown) date) current unknown) (unknown) (no (unknown) (unknown) angina pectoris (units (unknown) date) (06/03/16) unknown) (unknown) (no (unknown) (unknown) caregiver/suppor (units (unknown) date) t person: No unknown) (unknown) (no (unknown) (unknown) colon polyps (units (u nknown) date) which have been unknown) recent visit reasons in the last 6 months. Pt's (unknown) (no (unknown) (unknown) have occurred. (units (unknown) date) If there are any unknown) questions, please contact the Medical Records (unknown) (no (unknown) (unknown) household (units (unkn own) date) members: spouse unknown) (unknown) (no (unknown) (unknown) housing: house (units (unknown) date) unknown) (unknown) (no (unknown) (unknown) last appt weight (units (unknown) date) with Dr. Saunders unknown) was 163 on 12/24/21. (unknown) (no (unknown) (unknown) lives (units (unkno wn) date) independently: unknown) Yes (unknown) (no (unknown) (unknown) marital status: (units (unknown) date) unknown) (unknown) (no (unknown) (unknown) may occur. (units (unk nown) date) Occasional unknown) wrong-word or 'sound-alike' substitutions may have (unknown) (no (unknown) (unknown) number of (units (unkn own) date) children: 2 unknown) (unknown) (no (unknown) (unknown) occurred due to (units (unknown) date) the inherent unknown) limitations of voice recognition software. Please (unknown) (no (unknown) (unknown) read the note (units ( unknown) date) carefully and unknown) recognize, using context, where these substitutions (unknown) (no (unknown) (unknown) second hand (units (un known) date) exposure: No unknown) (unknown) (no (unknown) (unknown) software. 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 (unknown) (no (unknown) (unknown) substance use (units ( unknown) date) type: does not unknown) use Result panel 30 (unknown) (no (unknown) (unknown) (no value) (units (unk nown) date) unknown) (unknown) (no (unknown) (unknown) [id number] (units (unkno wn) date) unknown) (unknown) (no (unknown) (unknown) 02/26/22 (units (unkno wn) date) unknown) (unknown) (no (unknown) (unknown) 02/26/22] (units (unkn own) date) unknown) (unknown) (no (unknown) (unknown) 10:32 (units (unkno wn) date) unknown) (unknown) (no (unknown) (unknown) Accompanied by: (units (unknown) date) unknown) (unknown) (no (unknown) (unknown) Age/Sex: 86 / M (units (unknown) date) Date of Service: unknown) (unknown) (no (unknown) (unknown) Allergies (units (unkn own) date) unknown) (unknown) (no (unknown) (unknown) [facility] (units (unknown) date) Medicine unknown) (unknown) (no (unknown) (unknown) [place] (units ( unknown) date) [id number] unknown) (unknown) (no (unknown) (unknown) Anemia (units (unkno wn) date) (08/29/17) unknown) (unknown) (no (unknown) (unknown) Arrhythmia (units (unk nown) date) unknown) (unknown) (no (unknown) (unknown) Atrial (units (unkno wn) date) fibrillation with unknown) rapid ventricular response (05/06/16) (unknown) (no (unknown) (unknown) Attending Dr: (units ( unknown) date) Aditi Saunders MD unknown) (unknown) (no (unknown) (unknown) BP 130/70 (units (unkn own) date) unknown) (unknown) (no (unknown) (unknown) Blood Pressure (units (unknown) date) Location Rt unknown) brachial (unknown) (no (unknown) (unknown) COPD (chronic (units ( unknown) date) obstructive unknown) pulmonary disease) (unknown) (no (unknown) (unknown) Confirmed (units (unkn own) date) 02/26/22] unknown) (unknown) (no (unknown) (unknown) 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 unknown) (unknown) (no (unknown) (unknown) Documented By: (units (unknown) date) Aditi Saunders MD unknown) 02/26/22 0759 (unknown) (no (unknown) (unknown) Draft (units (unkno wn) date) unknown) (unknown) (no (unknown) (unknown) Easy (units (unkno wn) date) bruisability unknown) (unknown) (no (unknown) (unknown) Erectile (units (unkno wn) date) dysfunction unknown) (07/24/16) (unknown) (no (unknown) (unknown) Essential (units (unkn own) date) hypertension unknown) (06/03/16) (unknown) (no (unknown) (unknown) Family Practice (units (unknown) date) Office Visit unknown) (unknown) (no (unknown) (unknown) Former smoker (units ( unknown) date) unknown) (unknown) (no (unknown) (unknown) GERD (units (unkno wn) date) (gastroesophageal unknown) reflux disease) (unknown) (no (unknown) (unknown) Health (units (unkno wn) date) Management unknown) reviewed with patient: Yes (unknown) (no (unknown) (unknown) Health (units (unkno wn) date) Management unknown) (unknown) (no (unknown) (unknown) Hemorrhagic (units (un known) date) stroke unknown) (unknown) (no (unknown) (unknown) History of (units (unk nown) date) colonoscopy unknown) (unknown) (no (unknown) (unknown) Hx of bilateral (units (unknown) date) cataract unknown) extraction (07/2019) (unknown) (no (unknown) (unknown) Hx of cardiac (units ( unknown) date) cath unknown) (unknown) (no (unknown) (unknown) Hx of heart (units (un known) date) artery stent unknown) (1997) (unknown) (no (unknown) (unknown) Intake Note: (units (u nknown) date) unknown) (unknown) (no (unknown) (unknown) Intake (units (unkno wn) date) unknown) (unknown) (no (unknown) (unknown) Jaw fracture (units (u nknown) date) unknown) (unknown) (no (unknown) (unknown) Loc: [facility] (units (unkno wn) date) unknown) (unknown) (no (unknown) (unknown) 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 (07/09/17) (unknown) (no (unknown) (unknown) Medical History (units (unknown) date) (Reviewed unknown) 12/10/21 @ 14:36 by Alexandro English RN) (unknown) (no (unknown) (unknown) Medications (units (un known) date) unknown) (unknown) (no (unknown) (unknown) Myocardial (units (unk nown) date) infarction (1995) unknown) (unknown) (no (unknown) (unknown) No Known Drug (units ( unknown) date) Allergies Allergy unknown) (Verified 02/26/22 10:32) (unknown) (no (unknown) (unknown) 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 Hx of COPD and (unknown) (no (unknown) (unknown) Oxygen Delivery (units (unknown) date) Method room air unknown) (unknown) (no (unknown) (unknown) PFSH (units (unkno wn) date) unknown) (unknown) (no (unknown) (unknown) Patient: (units (unkno wn) date) Eb Flores unknown) MR#: [id number] (unknown) (no (unknown) (unknown) Position Sitting (units (unknown) date) unknown) (unknown) (no (unknown) (unknown) Pulse 77 (units (unkno wn) date) unknown) (unknown) (no (unknown) (unknown) Pulse Oximetry (units (unknown) date) (%) 99 unknown) (unknown) (no (unknown) (unknown) Pulse Source (units (u nknown) date) Monitor unknown) (unknown) (no (unknown) (unknown) Reason For Visit (units (unknown) date) unknown) (unknown) (no (unknown) (unknown) S/P CABG x 3 (units (u nknown) date) (1997) unknown) (unknown) (no (unknown) (unknown) Signed By: (units (unk nown) date) unknown) (unknown) (no (unknown) (unknown) Smoking Status: (units (unknown) date) Former smoker unknown) (unknown) (no (unknown) (unknown) Social History (units (unknown) date) unknown) (unknown) (no (unknown) (unknown) Surgical History (units (unknown) date) (Reviewed unknown) 12/10/21 @ 14:36 by Alexandro English RN) (unknown) (no (unknown) (unknown) This note may (units ( unknown) date) have been all or unknown) partially generated using voice recognition (unknown) (no (unknown) (unknown) Tobacco + (units (unkn own) date) Substance Use unknown) (unknown) (no (unknown) (unknown) Tobacco Status (units (unknown) date) unknown) (unknown) (no (unknown) (unknown) Visit Reasons: 2 (units (unknown) date) mo f/u wt loss unknown) (unknown) (no (unknown) (unknown) Vitals (units (unkno wn) date) unknown) (unknown) (no (unknown) (unknown) Weight 163 lb (units ( unknown) date) unknown) (unknown) (no (unknown) (unknown) [History (units (unkno wn) date) Confirmed unknown) 02/26/22] (unknown) (no (unknown) (unknown) acetaminophen (units ( unknown) date) 500 mg capsule unknown) 500 mg PO Q6H PRN Pain 03/24/18 [History Confirmed (unknown) (no (unknown) (unknown) albuterol (units (unkn own) date) sulfate 90 unknown) mcg/actuation breath activated powder inhaler 2 inh (unknown) (no (unknown) (unknown) alcohol intake: (units (unknown) date) current unknown) (unknown) (no (unknown) (unknown) angina pectoris (units (unknown) date) (06/03/16) unknown) (unknown) (no (unknown) (unknown) atorvastatin 20 (units (unknown) date) mg tablet 20 mg unknown) PO BEDTIME #90 tabs 04/25/21 [Rx Confirmed (unknown) (no (unknown) (unknown) caregiver/suppor (units (unknown) date) t person: No unknown) (unknown) (no (unknown) (unknown) colon polyps (units (u nknown) date) which have been unknown) recent visit reasons in the last 6 months. Pt's (unknown) (no (unknown) (unknown) diclofenac (units (unk nown) date) sodium 1 % unknown) topical gel (Voltaren Arthritis Pain) 4 g topical QID PRN (unknown) (no (unknown) (unknown) diclofenac (units (unk nown) date) sodium 1 % unknown) topical gel 2 g topical QID #100 grams 08/07/20 [Rx (unknown) (no (unknown) (unknown) fluoxetine 20 mg (units (unknown) date) capsule (Prozac) unknown) 20 mg PO DAILY 02/07/22 [History Confirmed (unknown) (no (unknown) (unknown) have occurred. (units (unknown) date) If there are any unknown) questions, please contact the Medical Records (unknown) (no (unknown) (unknown) household (units (unkn own) date) members: spouse unknown) (unknown) (no (unknown) (unknown) housing: house (units (unknown) date) unknown) (unknown) (no (unknown) (unknown) inh inhalation (units (unknown) date) QAM #12 grams unknown) 12/12/21 [Rx Confirmed 02/26/22] (unknown) (no (unknown) (unknown) inhalation Q4H (units (unknown) date) PRN shortness of unknown) breath or wheezing #1 ea 11/12/21 [Rx Confirmed (unknown) (no (unknown) (unknown) last appt weight (units (unknown) date) with Dr. Saunders unknown) was 163 on 12/24/21. (unknown) (no (unknown) (unknown) lives (units (unkno wn) date) independently: unknown) Yes (unknown) (no (unknown) (unknown) losartan 100 mg (units (unknown) date) tablet (Cozaar) unknown) 100 mg PO BEDTIME BP 02/07/22 [History Confirmed (unknown) (no (unknown) (unknown) marital status: (units (unknown) date) unknown) (unknown) (no (unknown) (unknown) may occur. (units (unk nown) date) Occasional unknown) wrong-word or 'sound-alike' substitutions may have (unknown) (no (unknown) (unknown) metoprolol (units (unk nown) date) tartrate 50 mg unknown) tablet 50 mg PO BID #180 tabs 11/23/21 [Rx Confirmed (unknown) (no (unknown) (unknown) number of (units (unkn own) date) children: 2 unknown) (unknown) (no (unknown) (unknown) occurred due to (units (unknown) date) the inherent unknown) limitations of voice recognition software. Please (unknown) (no (unknown) (unknown) omeprazole 40 mg (units (unknown) date) capsule,delayed unknown) release 40 mg PO DAILY 02/07/22 [History (unknown) (no (unknown) (unknown) pain #100 grams (units (unknown) date) 08/30/21 [Rx unknown) Confirmed 02/26/22] (unknown) (no (unknown) (unknown) placebo vs (units (unk nown) date) aspirin .Route unknown) 04/11/20 [History Confirmed 02/26/22] (unknown) (no (unknown) (unknown) read the note (units ( unknown) date) carefully and unknown) recognize, using context, where these substitutions (unknown) (no (unknown) (unknown) second hand (units (un known) date) exposure: No unknown) (unknown) (no (unknown) (unknown) software. 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 (unknown) (no (unknown) (unknown) substance use (units ( unknown) date) type: does not unknown) use (unknown) (no (unknown) (unknown) tadalafil 10 mg (units (unknown) date) tablet (Cialis) unknown) 10 mg PO PRN PRN Sexual Activity 11/05/19 (unknown) (no (unknown) (unknown) tiotropium (units (unk nown) date) bromide 2.5 unknown) mcg/actuation mist for inhalation (Spiriva Respimat) 2 Result panel 31 (unknown) (no (unknown) (unknown) (no value) (units (unk nown) date) unknown) (unknown) (no (unknown) (unknown) [id number] (units (unkno wn) date) unknown) (unknown) (no (unknown) (unknown) 02/26/22 (units (unkno wn) date) unknown) (unknown) (no (unknown) (unknown) 02/26/22] (units (unkn own) date) unknown) (unknown) (no (unknown) (unknown) 10:32 (units (unkno wn) date) unknown) (unknown) (no (unknown) (unknown) Accompanied by: (units (unknown) date) unknown) (unknown) (no (unknown) (unknown) After the gym, (units (unknown) date) has a piece of unknown) toast and falls asleep. Doesn't have strength in (unknown) (no (unknown) (unknown) Age/Sex: 86 / M (units (unknown) date) Date of Service: unknown) (unknown) (no (unknown) (unknown) Allergies (units (unkn own) date) unknown) (unknown) (no (unknown) (unknown) [facility] (units (unknown) date) Medicine unknown) (unknown) (no (unknown) (unknown) [place], [place] (units ( unknown) date) [id number] unknown) (unknown) (no (unknown) (unknown) Anemia (units (unkno wn) date) (08/29/17) unknown) (unknown) (no (unknown) (unknown) Arrhythmia (units (unk nown) date) unknown) (unknown) (no (unknown) (unknown) At the gym has (units (unknown) date) been doing PT - unknown) bridges, arm pulls, balance exercises for PT. (unknown) (no (unknown) (unknown) Atrial (units (unkno wn) date) fibrillation with unknown) rapid ventricular response (05/06/16) (unknown) (no (unknown) (unknown) Attending Dr: (units ( unknown) date) Aditi Saunders MD unknown) (unknown) (no (unknown) (unknown) BP 130/70 (units (unkn own) date) unknown) (unknown) (no (unknown) (unknown) Blood Pressure (units (unknown) date) Location Rt unknown) brachial (unknown) (no (unknown) (unknown) Breathing has (units ( unknown) date) been stable. unknown) (unknown) (no (unknown) (unknown) COPD (chronic (units ( unknown) date) obstructive unknown) pulmonary disease) (unknown) (no (unknown) (unknown) Confirmed (units (unkn own) date) 02/26/22] unknown) (unknown) (no (unknown) (unknown) Coronary artery (units (unknown) date) disease involving unknown) coronary bypass graft of [place] heart without (unknown) (no (unknown) (unknown) : 1935 (units (unknown) date) Acct:[id number] unknown) (unknown) (no (unknown) (unknown) Dept at (units (unkno wn) date) . unknown) (unknown) (no (unknown) (unknown) Documented By: (units (unknown) date) Aditi Saunders MD unknown) 02/26/22 0759 (unknown) (no (unknown) (unknown) Draft (units (unkno wn) date) unknown) (unknown) (no (unknown) (unknown) Easy (units (unkno wn) date) bruisability unknown) (unknown) (no (unknown) (unknown) Erectile (units (unkno wn) date) dysfunction unknown) (07/24/16) (unknown) (no (unknown) (unknown) Essential (units (unkn own) date) hypertension unknown) (06/03/16) (unknown) (no (unknown) (unknown) Family Practice (units (unknown) date) Office Visit unknown) (unknown) (no (unknown) (unknown) Flex supplements (units (unknown) date) - amino acids, unknown) glycerin (unknown) (no (unknown) (unknown) Former smoker (units ( unknown) date) unknown) (unknown) (no (unknown) (unknown) GERD (units (unkno wn) date) (gastroesophageal unknown) reflux disease) (unknown) (no (unknown) (unknown) Health (units (unkno wn) date) Management unknown) reviewed with patient: Yes (unknown) (no (unknown) (unknown) Health (units (unkno wn) date) Management unknown) (unknown) (no (unknown) (unknown) Hemorrhagic (units (un known) date) stroke unknown) (unknown) (no (unknown) (unknown) History of (units (unk nown) date) colonoscopy unknown) (unknown) (no (unknown) (unknown) Hx of bilateral (units (unknown) date) cataract unknown) extraction (07/2019) (unknown) (no (unknown) (unknown) Hx of cardiac (units ( unknown) date) cath unknown) (unknown) (no (unknown) (unknown) Hx of heart (units (un known) date) artery stent unknown) (1997) (unknown) (no (unknown) (unknown) Intake Note: (units (u nknown) date) unknown) (unknown) (no (unknown) (unknown) Intake (units (unkno wn) date) unknown) (unknown) (no (unknown) (unknown) Jaw fracture (units (u nknown) date) unknown) (unknown) (no (unknown) (unknown) Loc: [facility] (units (unkno wn) date) unknown) (unknown) (no (unknown) (unknown) 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 Hx of COPD and (unknown) (no (unknown) (unknown) Oxygen Delivery (units (unknown) date) Method room air unknown) (unknown) (no (unknown) (unknown) PFSH (units (unkno wn) date) unknown) (unknown) (no (unknown) (unknown) Patient: (units (unkno wn) date) Eb Flores unknown) MR#: [id number] (unknown) (no (unknown) (unknown) Position Sitting (units (unknown) date) unknown) (unknown) (no (unknown) (unknown) Pulse 77 (units (unkno wn) date) unknown) (unknown) (no (unknown) (unknown) Pulse Oximetry (units (unknown) date) (%) 99 unknown) (unknown) (no (unknown) (unknown) Pulse Source (units (u nknown) date) Monitor unknown) (unknown) (no (unknown) (unknown) Reason For Visit (units (unknown) date) unknown) (unknown) (no (unknown) (unknown) 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) unknown) (unknown) (no (unknown) (unknown) Signed By: (units (unk nown) date) unknown) (unknown) (no (unknown) (unknown) Smoking Status: (units (unknown) date) Former smoker unknown) (unknown) (no (unknown) (unknown) Social History (units (unknown) date) unknown) (unknown) (no (unknown) (unknown) Surgical History (units (unknown) date) (Reviewed unknown) 12/10/21 @ 14:36 by Alexandro English RN) (unknown) (no (unknown) (unknown) This note may (units ( unknown) date) have been all or unknown) partially generated using voice recognition (unknown) (no (unknown) (unknown) Tobacco + (units (unkn own) date) Substance Use unknown) (unknown) (no (unknown) (unknown) Tobacco Status (units (unknown) date) unknown) (unknown) (no (unknown) (unknown) Treadmill. (units (unk nown) date) unknown) (unknown) (no (unknown) (unknown) Visit Reasons: 2 (units (unknown) date) mo f/u wt loss unknown) (unknown) (no (unknown) (unknown) Vitals (units (unkno wn) date) unknown) (unknown) (no (unknown) (unknown) Weight 163 lb (units ( unknown) date) unknown) (unknown) (no (unknown) (unknown) [History (units (unkno wn) date) Confirmed unknown) 02/26/22] (unknown) (no (unknown) (unknown) acetaminophen (units ( unknown) date) 500 mg capsule unknown) 500 mg PO Q6H PRN Pain 03/24/18 [History Confirmed (unknown) (no (unknown) (unknown) albuterol (units (unkn own) date) sulfate 90 unknown) mcg/actuation breath activated powder inhaler 2 inh (unknown) (no (unknown) (unknown) alcohol intake: (units (unknown) date) current unknown) (unknown) (no (unknown) (unknown) angina pectoris (units (unknown) date) (06/03/16) unknown) (unknown) (no (unknown) (unknown) atorvastatin 20 (units (unknown) date) mg tablet 20 mg unknown) PO BEDTIME #90 tabs 04/25/21 [Rx Confirmed (unknown) (no (unknown) (unknown) caregiver/suppor (units (unknown) date) t person: No unknown) (unknown) (no (unknown) (unknown) colon polyps (units (u nknown) date) which have been unknown) recent visit reasons in the last 6 months. Pt's (unknown) (no (unknown) (unknown) diclofenac (units (unk nown) date) sodium 1 % unknown) topical gel (Voltaren Arthritis Pain) 4 g topical QID PRN (unknown) (no (unknown) (unknown) diclofenac (units (unk nown) date) sodium 1 % unknown) topical gel 2 g topical QID #100 grams 08/07/20 [Rx (unknown) (no (unknown) (unknown) fluoxetine 20 mg (units (unknown) date) capsule (Prozac) unknown) 20 mg PO DAILY 02/07/22 [History Confirmed (unknown) (no (unknown) (unknown) have occurred. (units (unknown) date) If there are any unknown) questions, please contact the Medical Records (unknown) (no (unknown) (unknown) household (units (unkn own) date) members: spouse unknown) (unknown) (no (unknown) (unknown) housing: house (units (unknown) date) unknown) (unknown) (no (unknown) (unknown) inh inhalation (units (unknown) date) QAM #12 grams unknown) 12/12/21 [Rx Confirmed 02/26/22] (unknown) (no (unknown) (unknown) inhalation Q4H (units (unknown) date) PRN shortness of unknown) breath or wheezing #1 ea 11/12/21 [Rx Confirmed (unknown) (no (unknown) (unknown) last appt weight (units (unknown) date) with Dr. Saunders unknown) was 163 on 12/24/21. (unknown) (no (unknown) (unknown) lives (units (unkno wn) date) independently: unknown) Yes (unknown) (no (unknown) (unknown) losartan 100 mg (units (unknown) date) tablet (Cozaar) unknown) 100 mg PO BEDTIME BP 02/07/22 [History Confirmed (unknown) (no (unknown) (unknown) marital status: (units (unknown) date) unknown) (unknown) (no (unknown) (unknown) may occur. (units (unk nown) date) Occasional unknown) wrong-word or 'sound-alike' substitutions may have (unknown) (no (unknown) (unknown) metoprolol (units (unk nown) date) tartrate 50 mg unknown) tablet 50 mg PO BID #180 tabs 11/23/21 [Rx Confirmed (unknown) (no (unknown) (unknown) number of (units (unkn own) date) children: 2 unknown) (unknown) (no (unknown) (unknown) occurred due to (units (unknown) date) the inherent unknown) limitations of voice recognition software. Please (unknown) (no (unknown) (unknown) omeprazole 40 mg (units (unknown) date) capsule,delayed unknown) release 40 mg PO DAILY 02/07/22 [History (unknown) (no (unknown) (unknown) pain #100 grams (units (unknown) date) 08/30/21 [Rx unknown) Confirmed 02/26/22] (unknown) (no (unknown) (unknown) placebo vs (units (unk nown) date) aspirin .Route unknown) 04/11/20 [History Confirmed 02/26/22] (unknown) (no (unknown) (unknown) pment for 45 (units (u nknown) date) minutes, cut down unknown) to 30 minutes now and marrero around 121 calories (unknown) (no (unknown) (unknown) read the note (units ( unknown) date) carefully and unknown) recognize, using context, where these substitutions (unknown) (no (unknown) (unknown) second hand (units (un known) date) exposure: No unknown) (unknown) (no (unknown) (unknown) software. 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 (units (unknown) date) unknown) (unknown) (no (unknown) (unknown) tiotropium (units (unk nown) date) bromide 2.5 unknown) mcg/actuation mist for inhalation (Spiriva Respimat) 2 Result panel 32 (unknown) (no (unknown) (unknown) (no value) (units (unk nown) date) unknown) (unknown) (no (unknown) (unknown) [id number] (units (unkno wn) date) unknown) (unknown) (no (unknown) (unknown) 02/26/22 (units (unkno wn) date) unknown) (unknown) (no (unknown) (unknown) 02/26/22] (units (unkn own) date) unknown) (unknown) (no (unknown) (unknown) 10:32 (units (unkno wn) date) unknown) (unknown) (no (unknown) (unknown) Accompanied by: (units (unknown) date) unknown) (unknown) (no (unknown) (unknown) After the gym, (units (unknown) date) has a piece of unknown) toast and falls asleep. Doesn't have strength in (unknown) (no (unknown) (unknown) Age/Sex: 86 / M (units (unknown) date) Date of Service: unknown) (unknown) (no (unknown) (unknown) Allergies (units (unkn own) date) unknown) (unknown) (no (unknown) (unknown) [facility] (units (unknown) date) Medicine unknown) (unknown) (no (unknown) (unknown) [place] (units ( unknown) date) [id number] unknown) (unknown) (no (unknown) (unknown) Anemia (units (unkno wn) date) (08/29/17) unknown) (unknown) (no (unknown) (unknown) Arrhythmia (units (unk nown) date) unknown) (unknown) (no (unknown) (unknown) At the gym has (units (unknown) date) been doing PT - unknown) bridges, arm pulls, balance exercises for PT. (unknown) (no (unknown) (unknown) Atrial (units (unkno wn) date) fibrillation with unknown) rapid ventricular response (05/06/16) (unknown) (no (unknown) (unknown) Attending Dr: (units ( unknown) date) Aditi Saunders MD unknown) (unknown) (no (unknown) (unknown) BP 130/70 (units (unkn own) date) unknown) (unknown) (no (unknown) (unknown) Blood Pressure (units (unknown) date) Location Rt unknown) brachial (unknown) (no (unknown) (unknown) Breathing has (units ( unknown) date) been stable. unknown) (unknown) (no (unknown) (unknown) COPD (chronic (units ( unknown) date) obstructive unknown) pulmonary disease) (unknown) (no (unknown) (unknown) Confirmed (units (unkn own) date) 02/26/22] unknown) (unknown) (no (unknown) (unknown) Coronary artery (units (unknown) date) disease involving unknown) coronary bypass graft of [place] heart without (unknown) (no (unknown) (unknown) : 1935 (units (unknown) date) Acct:[id number] unknown) (unknown) (no (unknown) (unknown) Dept at (units (unkno wn) date) . unknown) (unknown) (no (unknown) (unknown) Documented By: (units (unknown) date) Aditi Saunders MD unknown) 02/26/22 0759 (unknown) (no (unknown) (unknown) Draft (units (unkno wn) date) unknown) (unknown) (no (unknown) (unknown) Easy (units (unkno wn) date) bruisability unknown) (unknown) (no (unknown) (unknown) Erectile (units (unkno wn) date) dysfunction unknown) (07/24/16) (unknown) (no (unknown) (unknown) Essential (units (unkn own) date) hypertension unknown) (06/03/16) (unknown) (no (unknown) (unknown) Family Practice (units (unknown) date) Office Visit unknown) (unknown) (no (unknown) (unknown) Flex supplements (units (unknown) date) - amino acids, unknown) glycerin (unknown) (no (unknown) (unknown) Former smoker (units ( unknown) date) unknown) (unknown) (no (unknown) (unknown) GERD (units (unkno wn) date) (gastroesophageal unknown) reflux disease) (unknown) (no (unknown) (unknown) Health (units (unkno wn) date) Management unknown) reviewed with patient: Yes (unknown) (no (unknown) (unknown) Health (units (unkno wn) date) Management unknown) (unknown) (no (unknown) (unknown) Hemorrhagic (units (un known) date) stroke unknown) (unknown) (no (unknown) (unknown) History of (units (unk nown) date) colonoscopy unknown) (unknown) (no (unknown) (unknown) Hx of bilateral (units (unknown) date) cataract unknown) extraction (07/2019) (unknown) (no (unknown) (unknown) Hx of cardiac (units ( unknown) date) cath unknown) (unknown) (no (unknown) (unknown) Hx of heart (units (un known) date) artery stent unknown) (1997) (unknown) (no (unknown) (unknown) Intake Note: (units (u nknown) date) unknown) (unknown) (no (unknown) (unknown) Intake (units (unkno wn) date) unknown) (unknown) (no (unknown) (unknown) Jaw fracture (units (u nknown) date) unknown) (unknown) (no (unknown) (unknown) Loc: [facility] (units (unkno wn) date) unknown) (unknown) (no (unknown) (unknown) 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 Hx of COPD and (unknown) (no (unknown) (unknown) Oxygen Delivery (units (unknown) date) Method room air unknown) (unknown) (no (unknown) (unknown) PFSH (units (unkno wn) date) unknown) (unknown) (no (unknown) (unknown) Patient: (units (unkno wn) date) Eb Flores unknown) MR#: [id number] (unknown) (no (unknown) (unknown) Position Sitting (units (unknown) date) unknown) (unknown) (no (unknown) (unknown) Pulse 77 (units (unkno wn) date) unknown) (unknown) (no (unknown) (unknown) Pulse Oximetry (units (unknown) date) (%) 99 unknown) (unknown) (no (unknown) (unknown) Pulse Source (units (u nknown) date) Monitor unknown) (unknown) (no (unknown) (unknown) Reason For Visit (units (unknown) date) unknown) (unknown) (no (unknown) (unknown) 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) unknown) (unknown) (no (unknown) (unknown) Signed By: (units (unk nown) date) unknown) (unknown) (no (unknown) (unknown) Smoking Status: (units (unknown) date) Former smoker unknown) (unknown) (no (unknown) (unknown) Social History (units (unknown) date) unknown) (unknown) (no (unknown) (unknown) Surgical History (units (unknown) date) (Reviewed unknown) 12/10/21 @ 14:36 by Alexandro English RN) (unknown) (no (unknown) (unknown) This note may (units ( unknown) date) have been all or unknown) partially generated using voice recognition (unknown) (no (unknown) (unknown) Tobacco + (units (unkn own) date) Substance Use unknown) (unknown) (no (unknown) (unknown) Tobacco Status (units (unknown) date) unknown) (unknown) (no (unknown) (unknown) Treadmill. -- (units ( unknown) date) will decrease to unknown) 20mg (unknown) (no (unknown) (unknown) Visit Reasons: 2 (units (unknown) date) mo f/u wt loss unknown) (unknown) (no (unknown) (unknown) Vitals (units (unkno wn) date) unknown) (unknown) (no (unknown) (unknown) Weight 163 lb (units ( unknown) date) unknown) (unknown) (no (unknown) (unknown) [History (units (unkno wn) date) Confirmed unknown) 02/26/22] (unknown) (no (unknown) (unknown) acetaminophen (units ( unknown) date) 500 mg capsule unknown) 500 mg PO Q6H PRN Pain 03/24/18 [History Confirmed (unknown) (no (unknown) (unknown) albuterol (units (unkn own) date) sulfate 90 unknown) mcg/actuation breath activated powder inhaler 2 inh (unknown) (no (unknown) (unknown) alcohol intake: (units (unknown) date) current unknown) (unknown) (no (unknown) (unknown) angina pectoris (units (unknown) date) (06/03/16) unknown) (unknown) (no (unknown) (unknown) atorvastatin 20 (units (unknown) date) mg tablet 20 mg unknown) PO BEDTIME #90 tabs 04/25/21 [Rx Confirmed (unknown) (no (unknown) (unknown) caregiver/suppor (units (unknown) date) t person: No unknown) (unknown) (no (unknown) (unknown) colon polyps (units (u nknown) date) which have been unknown) recent visit reasons in the last 6 months. Pt's (unknown) (no (unknown) (unknown) diclofenac (units (unk nown) date) sodium 1 % unknown) topical gel (Voltaren Arthritis Pain) 4 g topical QID PRN (unknown) (no (unknown) (unknown) diclofenac (units (unk nown) date) sodium 1 % unknown) topical gel 2 g topical QID #100 grams 08/07/20 [Rx (unknown) (no (unknown) (unknown) fluoxetine 20 mg (units (unknown) date) capsule (Prozac) unknown) 20 mg PO DAILY 02/07/22 [History Confirmed (unknown) (no (unknown) (unknown) have occurred. (units (unknown) date) If there are any unknown) questions, please contact the Medical Records (unknown) (no (unknown) (unknown) household (units (unkn own) date) members: spouse unknown) (unknown) (no (unknown) (unknown) housing: house (units (unknown) date) unknown) (unknown) (no (unknown) (unknown) inh inhalation (units (unknown) date) QAM #12 grams unknown) 12/12/21 [Rx Confirmed 02/26/22] (unknown) (no (unknown) (unknown) inhalation Q4H (units (unknown) date) PRN shortness of unknown) breath or wheezing #1 ea 11/12/21 [Rx Confirmed (unknown) (no (unknown) (unknown) last appt weight (units (unknown) date) with Dr. Saunders unknown) was 163 on 12/24/21. (unknown) (no (unknown) (unknown) lives (units (unkno wn) date) independently: unknown) Yes (unknown) (no (unknown) (unknown) losartan 100 mg (units (unknown) date) tablet (Cozaar) unknown) 100 mg PO BEDTIME BP 02/07/22 [History Confirmed (unknown) (no (unknown) (unknown) marital status: (units (unknown) date) unknown) (unknown) (no (unknown) (unknown) may occur. (units (unk nown) date) Occasional unknown) wrong-word or 'sound-alike' substitutions may have (unknown) (no (unknown) (unknown) metoprolol (units (unk nown) date) tartrate 50 mg unknown) tablet 50 mg PO BID #180 tabs 11/23/21 [Rx Confirmed (unknown) (no (unknown) (unknown) number of (units (unkn own) date) children: 2 unknown) (unknown) (no (unknown) (unknown) occurred due to (units (unknown) date) the inherent unknown) limitations of voice recognition software. Please (unknown) (no (unknown) (unknown) omeprazole 40 mg (units (unknown) date) capsule,delayed unknown) release 40 mg PO DAILY 02/07/22 [History (unknown) (no (unknown) (unknown) pain #100 grams (units (unknown) date) 08/30/21 [Rx unknown) Confirmed 02/26/22] (unknown) (no (unknown) (unknown) placebo vs (units (unk nown) date) aspirin .Route unknown) 04/11/20 [History Confirmed 02/26/22] (unknown) (no (unknown) (unknown) pment for 45 (units (u nknown) date) minutes, cut down unknown) to 30 minutes now and marrero around 121 calories (unknown) (no (unknown) (unknown) read the note (units ( unknown) date) carefully and unknown) recognize, using context, where these substitutions (unknown) (no (unknown) (unknown) second hand (units (un known) date) exposure: No unknown) (unknown) (no (unknown) (unknown) software. 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 (units (unknown) date) unknown) (unknown) (no (unknown) (unknown) tiotropium (units (unk nown) date) bromide 2.5 unknown) mcg/actuation mist for inhalation (Spiriva Respimat) 2 Result panel 33 (unknown) (no (unknown) (unknown) (no value) (units (unk nown) date) unknown) (unknown) (no (unknown) (unknown) (1) Weight loss: (units (unknown) date) unknown) (unknown) (no (unknown) (unknown) (2) Fatigue: (units (u nknown) date) unknown) (unknown) (no (unknown) (unknown) -Discussed that (units (unknown) date) patient is likely unknown) overexerting himself at the gym. Encouraged (unknown) (no (unknown) (unknown) -Patient's (units (unk nown) date) weight is unknown) actually stable at this point. Discussed that this is (unknown) (no (unknown) (unknown) [id number] (units (unkno wn) date) unknown) (unknown) (no (unknown) (unknown) 02/26/22 (units (unkno wn) date) unknown) (unknown) (no (unknown) (unknown) 02/26/22] (units (unkn own) date) unknown) (unknown) (no (unknown) (unknown) 10:32 (units (unkno wn) date) unknown) (unknown) (no (unknown) (unknown) Accompanied by: (units (unknown) date) unknown) (unknown) (no (unknown) (unknown) After the gym, (units (unknown) date) has a piece of unknown) toast and falls asleep. Doesn't have strength in (unknown) (no (unknown) (unknown) Age/Sex: 86 / M (units (unknown) date) Date of Service: unknown) (unknown) (no (unknown) (unknown) Allergies (units (unkn own) date) unknown) (unknown) (no (unknown) (unknown) [facility] (units (unknown) date) Medicine unknown) (unknown) (no (unknown) (unknown) [place], [place] (units ( unknown) date) [id number] unknown) (unknown) (no (unknown) (unknown) Anemia (units (unkno wn) date) (08/29/17) unknown) (unknown) (no (unknown) (unknown) Arrhythmia (units (unk nown) date) unknown) (unknown) (no (unknown) (unknown) Assessment + (units (u nknown) date) Plan unknown) (unknown) (no (unknown) (unknown) Assessment and (units (unknown) date) Plan: unknown) (unknown) (no (unknown) (unknown) At the gym has (units (unknown) date) been doing PT - unknown) bridges, arm pulls, balance exercises for PT. (unknown) (no (unknown) (unknown) Atrial (units (unkno wn) date) fibrillation with unknown) rapid ventricular response (05/06/16) (unknown) (no (unknown) (unknown) Attending Dr: (units ( unknown) date) Aditi Saunders MD unknown) (unknown) (no (unknown) (unknown) BP 130/70 (units (unkn own) date) unknown) (unknown) (no (unknown) (unknown) Blood Pressure (units (unknown) date) Location Rt unknown) brachial (unknown) (no (unknown) (unknown) Breathing has (units ( unknown) date) been stable. unknown) (unknown) (no (unknown) (unknown) COPD (chronic (units ( unknown) date) obstructive unknown) pulmonary disease) (unknown) (no (unknown) (unknown) CV: Irregularly (units (unknown) date) irregular rhythm. unknown) Grade 2 out of 6 systolic murmur. (unknown) (no (unknown) (unknown) Chief Complaint (units (unknown) date) unknown) (unknown) (no (unknown) (unknown) Chief Complaint: (units (unknown) date) Follow-up weight unknown) loss. (unknown) (no (unknown) (unknown) Confirmed (units (unkn own) date) 02/26/22] unknown) (unknown) (no (unknown) (unknown) Coronary artery (units (unknown) date) disease involving unknown) coronary bypass graft of [place] heart without (unknown) (no (unknown) (unknown) : 1935 (units (unknown) date) Acct:[id number] unknown) (unknown) (no (unknown) (unknown) Dept at (units (unkno wn) date) . unknown) (unknown) (no (unknown) (unknown) Details: (units (unkno wn) date) unknown) (unknown) (no (unknown) (unknown) Documented By: (units (unknown) date) Aditi Saunders MD unknown) 02/26/22 [id number] (unknown) (no (unknown) (unknown) Draft (units (unkno wn) date) unknown) (unknown) (no (unknown) (unknown) Easy (units (unkno wn) date) bruisability unknown) (unknown) (no (unknown) (unknown) Erectile (units (unkno wn) date) dysfunction unknown) (07/24/16) (unknown) (no (unknown) (unknown) Essential (units (unkn own) date) hypertension unknown) (06/03/16) (unknown) (no (unknown) (unknown) Exam Narrative (units (unknown) date) unknown) (unknown) (no (unknown) (unknown) Exam Narrative: (units (unknown) date) unknown) (unknown) (no (unknown) (unknown) Exam (units (unkno wn) date) unknown) (unknown) (no (unknown) (unknown) Extremities: No (units (unknown) date) edema. unknown) (unknown) (no (unknown) (unknown) Family Practice (units (unknown) date) Office Visit unknown) (unknown) (no (unknown) (unknown) Flex supplements (units (unknown) date) - amino acids, unknown) glycerin (unknown) (no (unknown) (unknown) Former smoker (units ( unknown) date) unknown) (unknown) (no (unknown) (unknown) GERD (units (unkno wn) date) (gastroesophageal unknown) reflux disease) (unknown) (no (unknown) (unknown) General: No (units (un known) date) acute distress, unknown) sitting comfortably in chair, appears well. (unknown) (no (unknown) (unknown) HPI (units (unkno wn) date) unknown) (unknown) (no (unknown) (unknown) Health (units (unkno wn) date) Management unknown) reviewed with patient: Yes (unknown) (no (unknown) (unknown) Health (units (unkno wn) date) Management unknown) (unknown) (no (unknown) (unknown) Hemorrhagic (units (un known) date) stroke unknown) (unknown) (no (unknown) (unknown) History of (units (unk nown) date) colonoscopy unknown) (unknown) (no (unknown) (unknown) Hx of bilateral (units (unknown) date) cataract unknown) extraction (07/2019) (unknown) (no (unknown) (unknown) Hx of cardiac (units ( unknown) date) cath unknown) (unknown) (no (unknown) (unknown) Hx of heart (units (un known) date) artery stent unknown) (1997) (unknown) (no (unknown) (unknown) Intake Note: (units (u nknown) date) unknown) (unknown) (no (unknown) (unknown) Intake (units (unkno wn) date) unknown) (unknown) (no (unknown) (unknown) Jaw fracture (units (u nknown) date) unknown) (unknown) (no (unknown) (unknown) Loc: [facility] (units (unkno wn) date) unknown) (unknown) (no (unknown) (unknown) 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 Hx of COPD and (unknown) (no (unknown) (unknown) Oxygen Delivery (units (unknown) date) Method room air unknown) (unknown) (no (unknown) (unknown) PFSH (units (unkno wn) date) unknown) (unknown) (no (unknown) (unknown) Patient: (units (unkno wn) date) Eb Flores F unknown) MR#: [id number] (unknown) (no (unknown) (unknown) Position Sitting (units (unknown) date) unknown) (unknown) (no (unknown) (unknown) Pulse 77 (units (unkno wn) date) unknown) (unknown) (no (unknown) (unknown) Pulse Oximetry (units (unknown) date) (%) 99 unknown) (unknown) (no (unknown) (unknown) Pulse Source (units (u nknown) date) Monitor unknown) (unknown) (no (unknown) (unknown) Reason For Visit (units (unknown) date) unknown) (unknown) (no (unknown) (unknown) Respiratory: (units (u nknown) date) Clear to unknown) auscultation bilaterally. (unknown) (no (unknown) (unknown) 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) unknown) (unknown) (no (unknown) (unknown) Signed By: (units (unk nown) date) unknown) (unknown) (no (unknown) (unknown) Smoking Status: (units (unknown) date) Former smoker unknown) (unknown) (no (unknown) (unknown) Social History (units (unknown) date) unknown) (unknown) (no (unknown) (unknown) Surgical History (units (unknown) date) (Reviewed unknown) 12/10/21 @ 14:36 by Alexandro English RN) (unknown) (no (unknown) (unknown) The patient is (units ( unknown) date) here to follow up unknown) on his weight loss. He reports that he has been (unknown) (no (unknown) (unknown) This note may (units ( unknown) date) have been all or unknown) partially generated using voice recognition (unknown) (no (unknown) (unknown) Tobacco + (units (unkn own) date) Substance Use unknown) (unknown) (no (unknown) (unknown) Tobacco Status (units (unknown) date) unknown) (unknown) (no (unknown) (unknown) Treadmill. -- (units ( unknown) date) will decrease to unknown) 20mg (unknown) (no (unknown) (unknown) Visit Reasons: 2 (units (unknown) date) mo f/u wt loss unknown) (unknown) (no (unknown) (unknown) Vitals (units (unkno wn) date) unknown) (unknown) (no (unknown) (unknown) Weight 163 lb (units ( unknown) date) unknown) (unknown) (no (unknown) (unknown) [History (units (unkno wn) date) Confirmed unknown) 02/26/22] (unknown) (no (unknown) (unknown) acetaminophen (units ( unknown) date) 500 mg capsule unknown) 500 mg PO Q6H PRN Pain 03/24/18 [History Confirmed (unknown) (no (unknown) (unknown) albuterol (units (unkn own) date) sulfate 90 unknown) mcg/actuation breath activated powder inhaler 2 inh (unknown) (no (unknown) (unknown) alcohol intake: (units (unknown) date) current unknown) (unknown) (no (unknown) (unknown) angina pectoris (units (unknown) date) (06/03/16) unknown) (unknown) (no (unknown) (unknown) atorvastatin 20 (units (unknown) date) mg tablet 20 mg unknown) PO BEDTIME #90 tabs 04/25/21 [Rx Confirmed (unknown) (no (unknown) (unknown) be too much for (units (unknown) date) him. unknown) (unknown) (no (unknown) (unknown) caregiver/suppor (units (unknown) date) t person: No unknown) (unknown) (no (unknown) (unknown) colon polyps (units (u nknown) date) which have been unknown) recent visit reasons in the last 6 months. Pt's (unknown) (no (unknown) (unknown) diclofenac (units (unk nown) date) sodium 1 % unknown) topical gel (Voltaren Arthritis Pain) 4 g topical QID PRN (unknown) (no (unknown) (unknown) diclofenac (units (unk nown) date) sodium 1 % unknown) topical gel 2 g topical QID #100 grams 08/07/20 [Rx (unknown) (no (unknown) (unknown) eating (units (unkno wn) date) consistently and unknown) still doing his Ensure supplementation. He also started (unknown) (no (unknown) (unknown) fluoxetine 20 mg (units (unknown) date) capsule (Prozac) unknown) 20 mg PO DAILY 02/07/22 [History Confirmed (unknown) (no (unknown) (unknown) have occurred. (units (unknown) date) If there are any unknown) questions, please contact the Medical Records (unknown) (no (unknown) (unknown) he is frequently (units (unknown) date) very tired in the unknown) afternoons. He does go to the gym 5 days a (unknown) (no (unknown) (unknown) him to cut down (units (unknown) date) on the treadmill unknown) to 20 minutes a day. (unknown) (no (unknown) (unknown) household (units (unkn own) date) members: spouse unknown) (unknown) (no (unknown) (unknown) housing: house (units (unknown) date) unknown) (unknown) (no (unknown) (unknown) inh inhalation (units (unknown) date) QAM #12 grams unknown) 12/12/21 [Rx Confirmed 02/26/22] (unknown) (no (unknown) (unknown) inhalation Q4H (units (unknown) date) PRN shortness of unknown) breath or wheezing #1 ea 11/12/21 [Rx Confirmed (unknown) (no (unknown) (unknown) last appt weight (units (unknown) date) with Dr. Saunders unknown) was 163 on 12/24/21. (unknown) (no (unknown) (unknown) likely his new (units (unknown) date) norm. Patient unknown) will continue current eating habits. (unknown) (no (unknown) (unknown) lives (units (unkno wn) date) independently: unknown) Yes (unknown) (no (unknown) (unknown) losartan 100 mg (units (unknown) date) tablet (Cozaar) unknown) 100 mg PO BEDTIME BP 02/07/22 [History Confirmed (unknown) (no (unknown) (unknown) marital status: (units (unknown) date) unknown) (unknown) (no (unknown) (unknown) may occur. (units (unk nown) date) Occasional unknown) wrong-word or 'sound-alike' substitutions may have (unknown) (no (unknown) (unknown) metoprolol (units (unk nown) date) tartrate 50 mg unknown) tablet 50 mg PO BID #180 tabs 11/23/21 [Rx Confirmed (unknown) (no (unknown) (unknown) minutes on the (units (unknown) date) treadmill walking unknown) when he marrero approximately 121 [place]. He (unknown) (no (unknown) (unknown) number of (units (unkn own) date) children: 2 unknown) (unknown) (no (unknown) (unknown) occurred due to (units (unknown) date) the inherent unknown) limitations of voice recognition software. Please (unknown) (no (unknown) (unknown) omeprazole 40 mg (units (unknown) date) capsule,delayed unknown) release 40 mg PO DAILY 02/07/22 [History (unknown) (no (unknown) (unknown) pain #100 grams (units (unknown) date) 08/30/21 [Rx unknown) Confirmed 02/26/22] (unknown) (no (unknown) (unknown) placebo vs (units (unk nown) date) aspirin .Route unknown) 04/11/20 [History Confirmed 02/26/22] (unknown) (no (unknown) (unknown) pment for 45 (units (u nknown) date) minutes, cut down unknown) to 30 minutes now and marrero around 121 calories (unknown) (no (unknown) (unknown) previously would (units (unknown) date) do 45 minutes on unknown) the treadmill, but felt that this was going to (unknown) (no (unknown) (unknown) read the note (units ( unknown) date) carefully and unknown) recognize, using context, where these substitutions (unknown) (no (unknown) (unknown) second hand (units (un known) date) exposure: No unknown) (unknown) (no (unknown) (unknown) software. 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 His does endorse that (unknown) (no (unknown) (unknown) substance use (units ( unknown) date) type: does not unknown) use (unknown) (no (unknown) (unknown) tadalafil 10 mg (units (unknown) date) tablet (Cialis) unknown) 10 mg PO PRN PRN Sexual Activity 11/05/19 (unknown) (no (unknown) (unknown) taking Flex (units (un known) date) supplements with unknown) amino acids and glycerin that his son recommended (unknown) (no (unknown) (unknown) the afternoon. (units (unknown) date) unknown) (unknown) (no (unknown) (unknown) tiotropium (units (unk nown) date) bromide 2.5 unknown) mcg/actuation mist for inhalation (Spiriva Respimat) 2 (unknown) (no (unknown) (unknown) to him. He (units (unk nown) date) denies any recent unknown) chest pain. He states that his breathing has been (unknown) (no (unknown) (unknown) week still. He (units (unknown) date) usually does unknown) physical therapy style exercises in addition to 30 Result panel 34 (unknown) (no (unknown) (unknown) (no value) (units (unk nown) date) unknown) (unknown) (no (unknown) (unknown) (1) Weight loss: (units (unknown) date) unknown) (unknown) (no (unknown) (unknown) (2) Fatigue: (units (u nknown) date) unknown) (unknown) (no (unknown) (unknown) (3) COPD (chronic (units (unknown) date) obstructive unknown) pulmonary disease): (unknown) (no (unknown) (unknown) (4) Atrial (units (unk nown) date) fibrillation with unknown) rapid ventricular response: (unknown) (no (unknown) (unknown) (5) Essential (units ( unknown) date) hypertension: unknown) (unknown) (no (unknown) (unknown) -Discussed that (units (unknown) date) patient is likely unknown) overexerting himself at the gym. Encouraged (unknown) (no (unknown) (unknown) -Patient's weight (units (unknown) date) is actually stable unknown) at this point. Discussed that this is (unknown) (no (unknown) (unknown) [id number] (units (unkno wn) date) unknown) (unknown) (no (unknown) (unknown) 02/26/22 (units (unkno wn) date) unknown) (unknown) (no (unknown) (unknown) 02/26/22] (units (unkn own) date) unknown) (unknown) (no (unknown) (unknown) 10/03/22 1330 (units ( unknown) date) unknown) (unknown) (no (unknown) (unknown) 10:32 (units (unkno wn) date) unknown) (unknown) (no (unknown) (unknown) Accompanied by: (units (unknown) date) unknown) (unknown) (no (unknown) (unknown) Age/Sex: 86 / M (units (unknown) date) Date of Service: unknown) (unknown) (no (unknown) (unknown) Allergies (units (unkn own) date) unknown) (unknown) (no (unknown) (unknown) [facility] (units (unknown) date) Medicine unknown) (unknown) (no (unknown) (unknown) [place] (units ( unknown) date) [id number] unknown) (unknown) (no (unknown) (unknown) Anemia (08/29/17) (units (unknown) date) unknown) (unknown) (no (unknown) (unknown) Arrhythmia (units (unk nown) date) unknown) (unknown) (no (unknown) (unknown) Assessment + Plan (units (unknown) date) unknown) (unknown) (no (unknown) (unknown) Assessment and (units (unknown) date) Plan: unknown) (unknown) (no (unknown) (unknown) Atrial (units (unkno wn) date) fibrillation with unknown) rapid ventricular response (05/06/16) (unknown) (no (unknown) (unknown) Attending Dr: (units ( unknown) date) Aditi Saunders MD unknown) (unknown) (no (unknown) (unknown) BP 130/70 (units (unkn own) date) unknown) (unknown) (no (unknown) (unknown) BP acceptable (units ( unknown) date) range. Continue unknown) current medications. (unknown) (no (unknown) (unknown) Blood Pressure (units (unknown) date) Location Rt unknown) brachial (unknown) (no (unknown) (unknown) COPD (chronic (units ( unknown) date) obstructive unknown) pulmonary disease) (unknown) (no (unknown) (unknown) COPD type: (units (unk nown) date) unspecified COPD unknown) Qualified Code(s): J44.9 - Chronic (unknown) (no (unknown) (unknown) CV: Irregularly (units (unknown) date) irregular rhythm. unknown) Grade 2 out of 6 systolic murmur. (unknown) (no (unknown) (unknown) Chief Complaint (units (unknown) date) unknown) (unknown) (no (unknown) (unknown) Chief Complaint: (units (unknown) date) Follow-up weight unknown) loss. 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 unknown) (unknown) (no (unknown) (unknown) Details: (units (unkno wn) date) unknown) (unknown) (no (unknown) (unknown) Documented By: (units (unknown) date) Aditi Saunders MD unknown) 02/26/22 0759 (unknown) (no (unknown) (unknown) Easy bruisability (units (unknown) date) unknown) (unknown) (no (unknown) (unknown) Erectile (units (unkno wn) date) dysfunction unknown) (07/24/16) (unknown) (no (unknown) (unknown) Essential (units (unkn own) date) hypertension unknown) (06/03/16) (unknown) (no (unknown) (unknown) Exam Narrative (units (unknown) date) unknown) (unknown) (no (unknown) (unknown) Exam Narrative: (units (unknown) date) unknown) (unknown) (no (unknown) (unknown) Exam (units (unkno wn) date) unknown) (unknown) (no (unknown) (unknown) Extremities: No (units (unknown) date) edema. unknown) (unknown) (no (unknown) (unknown) Family Practice (units (unknown) date) Office Visit unknown) (unknown) (no (unknown) (unknown) Fatigue type: due (units (unknown) date) to excessive unknown) exertion Encounter type: initial (unknown) (no (unknown) (unknown) Former smoker (units ( unknown) date) unknown) (unknown) (no (unknown) (unknown) GERD (units (unkno wn) date) (gastroesophageal unknown) reflux disease) (unknown) (no (unknown) (unknown) General: No acute (units (unknown) date) distress, sitting unknown) comfortably in chair, appears well. (unknown) (no (unknown) (unknown) HPI (units (unkno wn) date) unknown) (unknown) (no (unknown) (unknown) Health Management (units (unknown) date) reviewed with unknown) patient: Yes (unknown) (no (unknown) (unknown) Health Management (units (unknown) date) unknown) (unknown) (no (unknown) (unknown) Hemorrhagic (units (un known) date) stroke unknown) (unknown) (no (unknown) (unknown) History of (units (unk nown) date) colonoscopy unknown) (unknown) (no (unknown) (unknown) Hx of bilateral (units (unknown) date) cataract unknown) extraction (07/2019) (unknown) (no (unknown) (unknown) Hx of cardiac (units ( unknown) date) cath unknown) (unknown) (no (unknown) (unknown) Hx of heart (units (un known) date) artery stent unknown) (1997) (unknown) (no (unknown) (unknown) Intake Note: (units (u nknown) date) unknown) (unknown) (no (unknown) (unknown) Intake (units (unkno wn) date) unknown) (unknown) (no (unknown) (unknown) Jaw fracture (units (u nknown) date) unknown) (unknown) (no (unknown) (unknown) Loc: [facility] (units (unkno wn) date) unknown) (unknown) (no (unknown) (unknown) 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 (07/09/17) (unknown) (no (unknown) (unknown) Medical History (units (unknown) date) (Reviewed 12/10/21 unknown) @ 14:36 by Alexandro English RN) (unknown) (no (unknown) (unknown) Medications (units (un known) date) unknown) (unknown) (no (unknown) (unknown) Myocardial (units (unk nown) date) infarction (1995) unknown) (unknown) (no (unknown) (unknown) No Known Drug (units ( unknown) date) Allergies Allergy unknown) (Verified 02/26/22 10:32) (unknown) (no (unknown) (unknown) 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 Hx of COPD and (unknown) (no (unknown) (unknown) Oxygen Delivery (units (unknown) date) Method room air unknown) (unknown) (no (unknown) (unknown) PFSH (units (unkno wn) date) unknown) (unknown) (no (unknown) (unknown) Patient: (units (unkno wn) date) Eb Flores unknown) MR#: [id number] (unknown) (no (unknown) (unknown) Position Sitting (units (unknown) date) unknown) (unknown) (no (unknown) (unknown) Pulse 77 (units (unkno wn) date) unknown) (unknown) (no (unknown) (unknown) Pulse Oximetry (units (unknown) date) (%) 99 unknown) (unknown) (no (unknown) (unknown) Pulse Source (units (u nknown) date) Monitor unknown) (unknown) (no (unknown) (unknown) Qualifiers: (units (un known) date) unknown) (unknown) (no (unknown) (unknown) Reason For Visit (units (unknown) date) unknown) (unknown) (no (unknown) (unknown) Respiratory: (units (u nknown) date) Clear to unknown) auscultation bilaterally. 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 unknown) Continue current medications. Not on (unknown) (no (unknown) (unknown) Stable. Continue (units (unknown) date) current unknown) medications. (unknown) (no (unknown) (unknown) Status: Acute (units ( unknown) date) unknown) (unknown) (no (unknown) (unknown) Status: None (units (u nknown) date) unknown) (unknown) (no (unknown) (unknown) Surgical History (units (unknown) date) (Reviewed 12/10/21 unknown) @ 14:36 by Alexandro English RN) (unknown) (no (unknown) (unknown) The patient is (units ( unknown) date) here to follow up unknown) on his weight loss. He reports that he has been (unknown) (no (unknown) (unknown) This note may (units ( unknown) date) have been all or unknown) partially generated using voice recognition (unknown) (no (unknown) (unknown) Tobacco + (units (unkn own) date) Substance Use unknown) (unknown) (no (unknown) (unknown) Tobacco Status (units (unknown) date) unknown) (unknown) (no (unknown) (unknown) Visit Reasons: 2 (units (unknown) date) mo f/u wt loss unknown) (unknown) (no (unknown) (unknown) Vitals (units (unkno wn) date) unknown) (unknown) (no (unknown) (unknown) Weight 163 lb (units ( unknown) date) unknown) (unknown) (no (unknown) (unknown) [History (units (unkno wn) date) Confirmed unknown) 02/26/22] (unknown) (no (unknown) (unknown) acetaminophen 500 (units (unknown) date) mg capsule 500 mg unknown) PO Q6H PRN Pain 03/24/18 [History Confirmed (unknown) (no (unknown) (unknown) activity. (units (unkn own) date) unknown) (unknown) (no (unknown) (unknown) albuterol sulfate (units (unknown) date) 90 mcg/actuation unknown) breath activated powder inhaler 2 inh (unknown) (no (unknown) (unknown) alcohol intake: (units (unknown) date) current unknown) (unknown) (no (unknown) (unknown) angina pectoris (units (unknown) date) (06/03/16) unknown) (unknown) (no (unknown) (unknown) anticoagulation (units (unknown) date) due to fall risk. unknown) (unknown) (no (unknown) (unknown) atorvastatin 20 (units (unknown) date) mg tablet 20 mg PO unknown) BEDTIME #90 tabs 04/25/21 [Rx Confirmed (unknown) (no (unknown) (unknown) be too much for (units (unknown) date) him. unknown) (unknown) (no (unknown) (unknown) caregiver/support (units (unknown) date) person: No unknown) (unknown) (no (unknown) (unknown) colon polyps (units (u nknown) date) which have been unknown) recent visit reasons in the last 6 months. Pt's (unknown) (no (unknown) (unknown) diclofenac sodium (units (unknown) date) 1 % topical gel unknown) (Voltaren Arthritis Pain) 4 g topical QID PRN (unknown) (no (unknown) (unknown) diclofenac sodium (units (unknown) date) 1 % topical gel 2 unknown) g topical QID #100 grams 08/07/20 [Rx (unknown) (no (unknown) (unknown) eating (units (unkno wn) date) consistently and unknown) still doing his Ensure supplementation. He also started (unknown) (no (unknown) (unknown) encounter (units (unkn own) date) Qualified Code(s): unknown) T73.3XXA - Exhaustion due to excessive exertion, (unknown) (no (unknown) (unknown) fluoxetine 20 mg (units (unknown) date) capsule (Prozac) unknown) 20 mg PO DAILY 02/07/22 [History Confirmed (unknown) (no (unknown) (unknown) have occurred. If (units (unknown) date) there are any unknown) questions, please contact the Medical Records (unknown) (no (unknown) (unknown) he is frequently (units (unknown) date) very tired in the unknown) afternoons. He does go to the gym 5 days a (unknown) (no (unknown) (unknown) him to cut down (units (unknown) date) on the treadmill unknown) to 20 minutes a day, but continue with regular (unknown) (no (unknown) (unknown) household (units (unkn own) date) members: spouse unknown) (unknown) (no (unknown) (unknown) housing: house (units (unknown) date) unknown) (unknown) (no (unknown) (unknown) inh inhalation (units (unknown) date) QAM #12 grams unknown) 12/12/21 [Rx Confirmed 02/26/22] (unknown) (no (unknown) (unknown) inhalation Q4H (units (unknown) date) PRN shortness of unknown) breath or wheezing #1 ea 11/12/21 [Rx Confirmed (unknown) (no (unknown) (unknown) initial encounter (units (unknown) date) unknown) (unknown) (no (unknown) (unknown) last appt weight (units (unknown) date) with Dr. Saunders unknown) was 163 on 12/24/21. (unknown) (no (unknown) (unknown) likely his new (units (unknown) date) norm. Patient will unknown) continue current eating habits. (unknown) (no (unknown) (unknown) lives (units (unkno wn) date) independently: Yes unknown) (unknown) (no (unknown) (unknown) losartan 100 mg (units (unknown) date) tablet (Cozaar) unknown) 100 mg PO BEDTIME BP 02/07/22 [History Confirmed (unknown) (no (unknown) (unknown) marital status: (units (unknown) date) unknown) (unknown) (no (unknown) (unknown) may occur. (units (unk nown) date) Occasional unknown) wrong-word or 'sound-alike' substitutions may have (unknown) (no (unknown) (unknown) metoprolol (units (unk nown) date) tartrate 50 mg unknown) tablet 50 mg PO BID #180 tabs 11/23/21 [Rx Confirmed (unknown) (no (unknown) (unknown) minutes on the (units (unknown) date) treadmill walking unknown) when he [place] approximately [address]. He (unknown) (no (unknown) (unknown) number of (units (unkn own) date) children: 2 unknown) (unknown) (no (unknown) (unknown) obstructive (units (un known) date) pulmonary disease, unknown) unspecified (unknown) (no (unknown) (unknown) occurred due to (units (unknown) date) the inherent unknown) limitations of voice recognition software. Please (unknown) (no (unknown) (unknown) omeprazole 40 mg (units (unknown) date) capsule,delayed unknown) release 40 mg PO DAILY 02/07/22 [History (unknown) (no (unknown) (unknown) pain #100 grams (units (unknown) date) 08/30/21 [Rx unknown) Confirmed 02/26/22] (unknown) (no (unknown) (unknown) placebo vs (units (unk nown) date) aspirin .Route unknown) 04/11/20 [History Confirmed 02/26/22] (unknown) (no (unknown) (unknown) previously would (units (unknown) date) do 45 minutes on unknown) the treadmill, but felt that this was going to (unknown) (no (unknown) (unknown) read the note (units ( unknown) date) carefully and unknown) recognize, using context, where these substitutions (unknown) (no (unknown) (unknown) second hand (units (un known) date) exposure: No unknown) (unknown) (no (unknown) (unknown) software. 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 His does endorse that (unknown) (no (unknown) (unknown) substance use (units ( unknown) date) type: does not use unknown) (unknown) (no (unknown) (unknown) tadalafil 10 mg (units (unknown) date) tablet (Cialis) 10 unknown) mg PO PRN PRN Sexual Activity 11/05/19 (unknown) (no (unknown) (unknown) taking Flex (units (un known) date) supplements with unknown) amino acids and glycerin that his son recommended (unknown) (no (unknown) (unknown) tiotropium (units (unk nown) date) bromide 2.5 unknown) mcg/actuation mist for inhalation (Spiriva Respimat) 2 (unknown) (no (unknown) (unknown) to him. He denies (units (unknown) date) any recent chest unknown) pain. He states that his breathing has been (unknown) (no (unknown) (unknown) week still. He (units (unknown) date) usually does unknown) physical therapy style exercises in addition to 30 Social History date description facility (no date) Ex-smoker (finding) [facility] Vital Signs date measurement value units +0000 BMI BMI 22.1 kg/m2 [id number]+0000 BP_diastolic BP_diastolic 58 mm[H g] +0000 BP_systolic BP_systolic 128 mm[Hg] [id number]+0000 heart_rate heart_rate 61 /min [id number]+0000 height_metric height_metric 182.88 cm [id number]+0000 height_standard height_standard 72 in [id number]+0000 respiration_rate respiration_rate 16 /min [id number]+0000 temperature_metric temperature_metric 36.28 C +0000 temperature_standard temperature_standard 9 7.3 F +0000 weight_metric weight_metric 33.54 kg [id number]+0000 weight_standard weight_standard 73.94 lb
[2022-03-15] MEDS ORDERED: SODIUM CHLORIDE 0.9% 1,000 ML IV STA (10:03)
[2022-03-15 10:13] LABS: BASOPHILS % (AUTO) 0.2 %; HCT - HEMATOCRIT 43.9 % (37.0-47.0); HGB - HEMOGLOBIN 14.1 g/dL (12.0-16.0); LYMPHOCYTES # (AUTO) 0.6 10^3/uL (1.5-3.5); LYMPHOCYTES % (AUTO) 4.3 %; MEAN CORPUSCULAR HEMOGLOBIN 27.3 pg (27.0-31.0); MEAN CORPUSCULAR HGB CONC 32.1 g/dL (32.0-36.0); MEAN CORPUSCULAR VOLUME 84.9 fL (81.0-99.0); MEAN PLATELET VOLUME 11.2 fL (7.9-10.8); MONOCYTES # (AUTO) 0.9 10^3/uL (0.0-1.0); NEUTROPHILS # (AUTO) 12.7 10^3/uL (1.5-6.6); NEUTROPHILS % (AUTO) 88.8 %; PLT - PLATELET COUNT 239 10^3/uL (130-450); RED BLOOD COUNT 5.17 10^6/uL (4.20-5.40); RED CELL DISTRIBUTION WIDTH 13.7 % (12.0-15.0); WHITE BLOOD COUNT 14.3 x10^3/uL (4.8-10.8)
[2022-03-15 10:31] LABS: ALBUMIN 3.2 g/dL (3.2-5.5); ALBUMIN/GLOBULIN RATIO 0.7 (1.0-2.2); BILIRUBIN,TOTAL 1.6 mg/dL (0.2-1.0); CALCIUM 9.2 mg/dL (8.5-10.3); CREATININE 1.3 mg/dL (0.4-1.0); POTASSIUM 3.2 mmol/L (3.5-5.0); TOTAL PROTEIN 7.5 g/dL (6.7-8.2)
[2022-03-15 11:09] LABS: BILIRUBIN,URINE NEGATIVE (NEGATIVE); GLUCOSE, URINE (UA) NEGATIVE (NEGATIVE); KETONES,URINE (UA) NEGATIVE (NEGATIVE); LEUKOCYTE ESTERASE, URINE NEGATIVE (NEGATIVE); NITRITE,URINE NEGATIVE (NEGATIVE); OCCULT BLOOD,URINE TRACE-INTA (NEGATIVE); PH,URINE 8.5 PH (5.0-7.5); PROTEIN,URINE 100 mg/dL (NEGATIVE); UROBILINOGEN,URINE 0.2 (NORMAL) E.U./dL (NORMAL)
[2022-03-15 11:11] LABS: CLARITY,URINE CLOUDY (CLEAR)
[2022-03-15 11:19] LABS: BACTERIA,URINE Moderate /HPF (None Seen); CRYSTALS,URINE 11-25 Triple Phos /LPF; RBC,URINE 0-5 /HPF (0-5); SQUAMOUS EPITHELIAL CELL,UR MANY Squamous (<= Few)
--- NOTE | 2022-03-15 12:23 | XRAY Report ---
PROCEDURE: Chest 1 View X-Ray INDICATIONS: cough TECHNIQUE: One view of the chest was acquired. COMPARISON: 03/04/2019 FINDINGS: Surgical changes and devices: None. Lungs and pleura: Right mid and lower lung consolidation. Possible right pleural effusion. Mediastinum: Mediastinal contours appear normal. Heart size is normal. Bones and chest wall: No suspicious bony lesions. Overlying soft tissues appear unremarkable. IMPRESSION: Right mid and lower lung consolidation. If the patient has clinical signs of pneumonia, this likely r epresents infection. Follow-up imaging is suggested to ensure resolution. If the patient does not currently have signs of pneumonia, this could represent a mass and CT chest w ith contrast is recommended. Reviewed by: Bolivar Pearce MD on 03/15/2022 12:22 PM PDT Approved by: Bolivar Pearce MD on 03/15/2022 12:22 PM PDT Station ID: [id number]
[2022-03-15] MEDS ORDERED: AZITHROMYCIN 250 MG TABLET PO STA (12:29)
[2022-03-15] MEDS ORDERED: cefTRIAXone 2 GM in SODIUM CHLORIDE 0.9% MINIBAG 100 ML IV STA (12:29)
--- NOTE | 2022-03-15 12:59 | ED Physician Documentation ---
History of Present Illness - Stated complaint Stated Complaint: COUGH - Chief complaint Chief Complaint: Resp - History obtained from History obtained from: Patient, Family, EMS - Additonal information Additional information: The patient sent from home place via EMS for chief complaint of cough and possible UTI. The patient has had a cough for the last several days and also, staff at home place to have noticed her to be sitting hunched forward in her wheelchair. She has not had any measured fevers, and the patient herself denies any dysuria or other urinary symptoms, but the patient's daughter states that this has been her presentation previously when she has had a UTI. The patient denies any nausea or vomiting. No shortness of breath. She has had an intermittently productive cough. She does not have any history of lung disease, including COPD. She states she smoked for very short period of time when she was a young adult but quit decades ago. At this time, she is DNR with comfort measures, though in actuality, she is open to limited interventions. Review of Systems Ten Systems: 10 systems reviewed and negative Constitutional: reports: Reviewed and negative Eyes: reports: Reviewed and negative Ears: reports: Reviewed and negative Nose: reports: Reviewed and negative Throat: reports: Reviewed and negative Cardiac: reports: Reviewed and negative Respiratory: reports: Cough GI: reports: Reviewed and negative : reports: Reviewed and negative Skin: reports: Reviewed and negative Musculoskeletal: reports: Reviewed and negative Neurologic: reports: Reviewed and negative Psychiatric: reports: Reviewed and negative Endocrine: reports: Reviewed and negative Immunocompromised: reports: Reviewed and negative PD PAST MEDICAL HISTORY - Past Medical History Cardiovascular: Hypertension Respiratory: None Neuro: Dementia, CVA Endocrine/Autoimmune: None GI: None : None HEENT: None Psych: None Musculoskeletal: None Derm: None - Past Surgical History 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 HEENT: Cataracts - Present Medications Home Medications: Ambulatory Orders Medication Instructions Recorded Confirmed Aspirin 81 mg PO DAILY 03/04/19 03/15/22 Clopidogrel [Plavix] 75 mg PO DAILY 03/04/19 03/15/22 Latanoprost 1 drops EACHEYE QPM 03/04/19 03/15/22 QUEtiapine [SEROquel] 25 mg PO QPM 03/04/19 03/15/22 lisinopriL [Lisinopril] 10 mg PO BID 03/04/19 03/15/22 Azithromycin [Zithromax] 0 mg PO DAILY #6 tablet 03/15/22 traMADol [Ultram] 50 mg PO BID 03/15/22 03/15/22 - Allergies Allergies/Adverse Reactions: Allergies Allergy/AdvReac Type Severity Reaction Status Date / Time iodine Allergy Anaphylaxis Verified 03/15/22 10:24 sulfamethoxazole Allergy Unknown Verified 03/15/22 10:24 [From Bactrim] trimethoprim [From Bactrim] Allergy Unknown Verified 03/15/22 10:24 - Social History Does the pt smoke?: No Smoking Status: Never smoker - POLST Patient has POLST: No PD ED PE NORMAL - Vitals Vital signs reviewed: Yes - General General: Alert and oriented X 3, No acute distress, Well developed/nourished - HEENT HEENT: Atraumatic, PERRL, EOMI, Moist mucous membranes - Neck Neck: Supple, no meningeal sign - Cardiac Cardiac: RRR, No murmur, Strong equal pulses - Respiratory Respiratory: No respiratory distress, Clear bilaterally, Other (No extra lung sounds but breath sounds are diminished in the right lung base.) - Abdomen Abdomen: Soft, Non tender, Non distended - Back Back: No CVA TTP - Derm Derm: Normal color, Warm and dry, No rash - Extremities Extremities: No deformity, No edema - Neuro Neuro: Alert and oriented X 3, human intelligence 2-12 intact, Normal speech - Psych Psych: Normal mood, Normal affect Results - Vitals Vitals: Vital Signs - 24 hr 03/15/22 03/15/22 09:53 13:38 Temperature 99.1 C H Heart Rate 86 85 Respiratory 21 14 Rate Blood Pressure 207/111 H 214/101 H O2 Saturation 94 94 Oxygen O2 Source Room air - Labs Labs: Laboratory Tests 03/15/22 03/15/22 03/15/22 10:08 10:08 10:08 WBC 14.3 H RBC 5.17 Hgb 14.1 Hct 43.9 MCV 84.9 MCH 27.3 MCHC 32.1 RDW 13.7 Plt Count 239 MPV 11.2 H Neut # (Auto) 12.7 H Lymph # (Auto) 0.6 L [place] # (Auto) 0.9 Eos # (Auto) 0.0 Baso # (Auto) 0.0 Absolute Nucleated RBC 0.00 Nucleated RBC % 0.0 Sodium 135 Potassium 3.2 L Chloride 95 L Carbon Dioxide 27 Anion Gap 13.0 BUN 30 H Creatinine 1.3 H Estimated GFR (MDRD) 39 L Glucose 108 H Calcium 9.2 Total Bilirubin 1.6 H AST 24 ALT 18 Alkaline Phosphatase 76 B-Natriuretic Peptide 1072 H Total Protein 7.5 Albumin 3.2 Globulin 4.3 H Albumin/Globulin Ratio 0.7 L Lipase 30 Urine Color Urine Clarity Urine pH Ur Specific [place] Urine Protein Urine Glucose (UA) Urine Ketones Urine Occult Blood Urine Nitrite Urine Bilirubin Urine Urobilinogen Ur Leukocyte Esterase Urine RBC Urine WBC Ur Squamous Epith Cells Urine Crystals Urine Bacteria Ur Microscopic Review Urine Culture Comments 03/15/22 11:02 WBC RBC Hgb Hct MCV MCH MCHC RDW Plt Count MPV Neut # (Auto) Lymph # (Auto) [place] # (Auto) Eos # (Auto) Baso # (Auto) Absolute Nucleated RBC Nucleated RBC % Sodium Potassium Chloride Carbon Dioxide Anion Gap BUN Creatinine Estimated GFR (MDRD) Glucose Calcium Total Bilirubin AST ALT Alkaline Phosphatase B-Natriuretic Peptide Total Protein Albumin Globulin Albumin/Globulin Ratio Lipase Urine Color YELLOW Urine Clarity CLOUDY Urine pH 8.5 H Ur Specific [place] 1.020 Urine Protein 100 H Urine Glucose (UA) NEGATIVE Urine Ketones NEGATIVE Urine Occult Blood TRACE-INTA Urine Nitrite NEGATIVE Urine Bilirubin NEGATIVE Urine Urobilinogen 0.2 (NORMAL) Ur Leukocyte Esterase NEGATIVE Urine RBC 0-5 Urine WBC 4-5 Ur Squamous Epith Cells MANY Squamous H Urine Crystals 11-25 Triple Phos Urine Bacteria Moderate H Ur Microscopic Review INDICATED Urine Culture Comments NOT INDICATED - Rads (name of study) Chest x-ray Radiology: Final report received, EMP read indepedently, See rad report (Dense right lower lobe infiltrate, cannot rule out mass.) PD MEDICAL DECISION MAKING - ED course Complexity details: reviewed results, re-evaluated patient, considered differential, d/w patient, d/w family ED course: The patient was worked up with labs, which showed modest white blood cell count elevation of 14. Her chest x-ray showed consolidation in the base of the right lower lobe, with radiologist interpretation of likely pneumonia, but cannot rule out mass. Her BNP was elevated at just over thousand. I discussed with the patient and her daughter that the best plan at this point is to treat the pneumonia with antibiotics, with plan for repeat x-ray in about 2 weeks. If there is not significant improvement, or findings continue to raise any question of mass, then the patient will need a CT scan with IV contrast. The daughter and the patient have expressed understanding and are agreeable to this plan. Patient has been given IV Rocephin and a dose of Zithromax here. Departure - Departure Disposition: 01 Home, Self Care Clinical Impression: Pneumonia Qualifiers: Pneumonia type: due to unspecified organism Laterality: right Lung location: lower lobe of lung Qualified Code(s): J18.9 - Pneumonia, unspecified organism Condition: Stable Instructions: ED Pneumonia Adult Prescriptions: Azithromycin [Zithromax] 0 mg PO DAILY #6 tablet Comments: Your chest x-ray shows a dense pneumonia in the very bottom of your right lung. You have been started on antibiotics for this, and it is most likely the cause of your fatigue and cough. The radiologist has noted that if the pneumonia does not clear up on a repeat chest x-ray in about 2 weeks, that you should talk to your doctor about having a CT scan done of your chest to rule out a mass. Please be sure to follow-up for the repeat chest x-ray and reevaluation. You have been started on antibiotics today and your next dose should be tomorrow morning. Discharge Date/Time: 03/15/22 13:47
[2022-03-15 13:46] VITALS: BP 214/101
== END 2022-03-15 13:47 | disposition home or self-care (01) ==
LOC: EDBD → EDUNIT# → ED 09:45
DX: J18.9 Pneumonia, unspecified organism (principal); F03.90 Unspecified dementia, unspecified severity, without behavioral disturbance, psychotic disturbance, mood disturbance, and anxiety; I10 Essential (primary) hypertension; Z66 Do not resuscitate
CPT/HCPCS: 36415; 71045; 80053; 81001; 83690; 83880; 85025; 96365; 99284; A9270; 81003; 87086

== ENCOUNTER 2024-01-15 22:11 | Outpatient (CLI) | payer MEDICARE, OTHER | END 2024-01-15 22:12 | disposition critical access hospital (66) | LOC: EMS 22:11 | DX: S00.83XA Contusion of other part of head, initial encounter (principal); W19.XXXA Unspecified fall, initial encounter; Y92.092 Bedroom in other non-institutional residence as the place of occurrence of the external cause | CPT/HCPCS: A0425; A0429 ==

== ENCOUNTER 2024-01-15 22:27 | Emergency (ER) | payer MEDICARE, OTHER ==
[2024-01-15 22:57] VITALS: BP 208/101; O2SAT 98
--- NOTE | 2024-01-15 23:07 | CT Report ---
PROCEDURE: Cervical Spine WO INDICATIONS: fall out of bed head strike neck pain TECHNIQUE: Noncontrast 3 mm thick sections acquired from the skull base to the T4 level. Sagittal and coronal r eformats were then constructed. For radiation dose reduction, the following was used: automated exp osure control, adjustment of mA and/or kV according to patient size. COMPARISON: None. FINDINGS: Image quality: Severely suboptimal evaluation due to patient positioning.. Bones: No fractures or dislocations. Visualized superior ribs are intact. Soft tissues: Prevertebral soft tissues are normal in thickness. No paravertebral hematomas. No ap ical pneumothoraces. IMPRESSION: No acute, displaced fracture or traumatic subluxation. Reviewed by: Nain Marcelino MD on 01/15/2024 11:06 PM PDT Approved by: Nain Marcelino MD on 01/15/2024 11:06 PM PDT Station ID: [email or web address]
--- NOTE | 2024-01-15 23:09 | CT Report ---
PROCEDURE: Head WO INDICATIONS: fall out of bed head strike TECHNIQUE: Noncontrast 4.5 mm thick angled axial sections acquired from the foramen magnum to the vertex. For r adiation dose reduction, the following was used: automated exposure control, adjustment of mA and/or kV according to patient size. COMPARISON: None. FINDINGS: Image quality: Excellent. CSF spaces: Basal cisterns are patent. No extra-axial fluid collections. Ventricles are normal in size and shape. Brain: No midline shift. No intracranial masses or hemorrhage. Nix-white matter interface is norm al. Leukoaraiosis, commonly caused by chronic small vessel ischemic disease. Age-related volume loss . Skull and face: Calvarium and visualized facial bones are intact, without suspicious lesions. Sinuses: Visualized sinuses and mastoids are clear. IMPRESSION: No acute intracranial pathology. Reviewed by: Nain Marcelino MD on 01/15/2024 11:07 PM PDT Approved by: Nain Marcelino MD on 01/15/2024 11:07 PM PDT Station ID: [email or web address]
--- NOTE | 2024-01-15 23:42 | ED Physician Documentation ---
PD HPI HEAD INJURY - Stated complaint Stated Complaint: GLF - Chief complaint Chief Complaint: Trauma Hd/Nk - History obtained from History obtained from: Patient, EMS - History of Present Illness Mechanism of head injury: Fell Where head injury occurred: Home Timing - onset: Today Location of injury: Left, Front Quality of pain: Pain Associated symptoms: Neck pain. No: LOC, AMS, Amnesia, Nausea / vomiting, Paresthesias, Seizures, Ear drainage, Nasal drainage Symptoms improve with: Rest Symptoms worsen with: Palpation, Movement Contributing factors: No: Anticoagulated, Intoxicated Similar symptoms before: Has not had sx before Recently seen: Not recently seen - Additional information Additional information: Thao Alarcon is an 88-year-old female who fell out of bed unwitnessed at home place and she struck the left temporoparietal area without loss of consciousness. The DPOA requested evaluation in the emergency department. She is on Plavix. 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 HEENT: Cataracts - Present Medications Home Medications: Ambulatory Orders Medication Instructions Recorded Confirmed Aspirin 81 mg PO DAILY 03/04/19 03/15/22 Clopidogrel [Plavix] 75 mg PO DAILY 03/04/19 03/15/22 Latanoprost 1 drops EACHEYE QPM 03/04/19 03/15/22 QUEtiapine [SEROquel] 25 mg PO QPM 03/04/19 03/15/22 lisinopriL [Lisinopril] 10 mg PO BID 03/04/19 03/15/22 Azithromycin [Zithromax] 0 mg PO DAILY #6 tablet 03/15/22 traMADol [Ultram] 50 mg PO BID 03/15/22 03/15/22 - Allergies Allergies/Adverse Reactions: Allergies Allergy/AdvReac Type Severity Reaction Status Date / Time iodine Allergy Anaphylaxis Verified 01/15/24 22:40 sulfamethoxazole Allergy Unknown Verified 01/15/24 22:40 [From Bactrim] trimethoprim [From Bactrim] Allergy Unknown Verified 08/15/24 22:40 - Social History Does the pt smoke?: No Smoking Status: Never smoker Does the pt drink ETOH?: No Does the pt have substance abuse?: No - POLST Patient has POLST: Yes PD ED PE NORMAL - Vitals Vital signs reviewed: Yes (Hypertensive) - General General: No acute distress, Well developed/nourished - HEENT HEENT: PERRL, EOMI, Other (Minimal tenderness to the left parietal occipital area without step-off or crepitance.) - Neck Neck: Supple, no meningeal sign, Other (There is central bony tenderness to palpation of the cervical spine.) - Respiratory Respiratory: No respiratory distress - Derm Derm: Normal color, Warm and dry, No rash - Extremities Extremities: No deformity, No edema - Neuro Neuro: 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 2-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, No motor deficit, No sensory deficit, Normal speech Eye Opening: Spontaneous Motor: Obeys Commands Verbal: Confused GCS Score: 14 - Psych Psych: Normal mood, Normal affect Results - Vitals Vitals: Vital Signs - 24 hr 01/15/24 01/15/24 22:27 22:49 Temperature 36.6 C Heart Rate 79 67 Respiratory 18 18 Rate Blood Pressure 220/111 H 208/101 H O2 Saturation 94 98 Oxygen O2 Source Room air - Rads (name of study) CT head Relevant Findings:: Prelim report reviewed (Impression: No acute intracranial pathology.), EMP independent interpretation of test CT cervical spine Relevant Findings:: Prelim report reviewed (Impression: No acute, displaced fracture or traumatic subluxation.), EMP independent interpretation of test, See rad report PD Medical Decision Making - ED course Complexity details: reviewed old records, reviewed results, re-evaluated patient, considered differential ED course: Thao Alarcon presented to our emergency department after a fall out of bed and insistent by her DPOA that she have evaluation done. The patient appeared w ell was evaluated and returned to her home Departure - Departure Disposition: 01 Home, Self Care Clinical Impression: Concussion Qualifiers: Encounter type: initial encounter Loss of consciousness presence/duration: without LOC Qualified Code(s): S06.0X0A - Concussion without loss of consciousness, initial encounter Cervical strain, acute Qualifiers: Encounter type: initial encounter Qualified Code(s): S16.1XXA - Strain of muscle, fascia and tendon at neck level, initial encounter Condition: Stable Instructions: ED Concussion, ED Sprain Strain Neck Follow-Up: VICKY RECIO MD [Provider Admit Priv/Credential] - Comments: Thao, today it looks like the injury you had to your head did not cause a problem with internal bleeding and there are no fractures in your neck. We are expecting you to have a smooth recovery. You may have some pain in your neck for several days. Forms: PCP List Discharge Date/Time: 01/16/24 02:57
== END 2024-01-16 02:57 | disposition home or self-care (01) ==
LOC: EDUNIT# → ED 22:27
DX: S06.0X0A Concussion without loss of consciousness, initial encounter (principal); S16.1XXA Strain of muscle, fascia and tendon at neck level, initial encounter; R40.2412 Glasgow coma scale score 13-15, at arrival to emergency department; W06.XXXA Fall from bed, initial encounter; Y92.193 Bedroom in other specified residential institution as the place of occurrence of the external cause
CPT/HCPCS: 99283; 99284

== ENCOUNTER 2024-01-16 02:51 | Outpatient (CLI) | payer MEDICARE, OTHER | END 2024-01-16 02:52 | disposition home or self-care (01) | LOC: EMS 02:51 | PROVIDERS: ATTEND Emergency Medicine | DX: R41.0 Disorientation, unspecified (principal); S09.90XA Unspecified injury of head, initial encounter; S16.1XXA Strain of muscle, fascia and tendon at neck level, initial encounter; W19.XXXA Unspecified fall, initial encounter; F03.90 Unspecified dementia, unspecified severity, without behavioral disturbance, psychotic disturbance, mood disturbance, and anxiety; Z79.02 Long term (current) use of antithrombotics/antiplatelets | CPT/HCPCS: A0425; A0428 ==